=== PATIENT | female | born 1940 | race Caucasian/White ===

== ENCOUNTER → 2017-07-11 13:53 | Outpatient (CLI) | payer MEDICARE, OTHER, SELFPAY ==
[2017-07-11 15:38] LABS: Absolute Neutrophil Count 3.9 X10^3/uL (2.0-7.7); Basophil# 0.03 X10^3/uL; Basophil% 0.5 % (0-1); Eosinophil# 0.11 X10^3/uL; Eosinophils% 1.8 % (0-5); Hematocrit 42.6 % (37-47); Hemoglobin 13.5 g/dl (12.0-15.0); Lymphocyte % 26.2 % (19-41); Mean Corp Hgb Conc 31.7 g/gl (32-36); Mean Corpuscular Hgb 29.4 pg (27.0-32.0); Mean Corpuscular Volume 92.8 fL (81-99); Mean Platelet Vol. 9.1 fl (6.2-12.0); Monocyte# 0.47 X10^3/uL; Monocyte% 7.7 % (0-10); Neutrophil # 3.89 X10^3/uL (2.7-7.7); Neutrophil % 63.8 % (47-70); Platelet Count 297 K/mm3 (150-450); RBC Distribution Width CV 13.4 % (11.6-14.6); RBC Distribution Width SD 45.4 fl (35.1-43.9); Red Blood Count 4.59 M/mm3 (4.2-5.4); White Blood Count 6.1 K/mm3 (4.4-11.0)
[2017-07-11 15:46] LABS: POSITIVE COUNT NO; POSITIVE DIFFERENTIAL NO; POSITIVE MORPHOLOGY NO
[2017-07-11 16:00] LABS: Erythrocyte Sedimentation Rate 7 mm/hr (0-30)
[2017-07-11 16:04] LABS: Vitamin B12 597 pg/mL (211-911); Vitamin D,25 Hydroxy 26.5 ng/mL (29.95-100.01)
[2017-07-11 16:17] LABS: ALB/GLOB Ratio 1.2 RATIO (0.9-2.4); AST(SGOT) 24 U/L (15-37); Alanine Aminotransfer ALT/SGPT 54 U/L (13-56); Albumin, Serum 3.8 g/dL (3.2-5.0); Alkaline Phosphatase 78 U/L (45-117); Anion Gap 9 (5-15); BUN 16 mg/dL (7-18); BUN/Creat Ratio 26.9 RATIO (10-20); CRP < 2.90 mg/L (0.0-3.0); Calcium,Total 8.9 mg/dL (8.5-10.1); Chloride 104 mmol/L (98-107); EST Glomerular Filtration Rate 105 mL/min (>60); Est Glom Filt Rate - Afr Amer 127 mL/min (>60); Globulin 3.3 g/dL (2.2-4.2); Glucose 75 mg/dL (74-106); Potassium 4.1 mmol/L (3.5-5.1); Protein, Total 7.1 g/dL (6.4-8.2); Rheumatoid Factor < 10.0 IU/mL (<15); Sodium Level 139 mmol/L (136-145); Thyroid Stim Hormone (TSH) 4.06 uIU/mL (0.358-3.74)
[2017-07-12 13:49] LABS: T4 Free Direct 1.03 ng/dL (0.76-1.46)
[2017-07-13 15:29] LABS: ANTINUCLEAR ANTIBODIES DIRECT Negative (Negative)
[2017-07-14 09:54] LABS: Anti-Thyroglobulin AB < 1.0 IU/mL (0.0-0.9); Thyroglobulin, Serum Qt. 45.9 ng/mL (1.5-38.5); Thyroid Peroxidase AB 8 IU/mL (0-34)
== END ==
PROVIDERS: Family Provider Family Medicine; PCP Family Medicine; Visit Provider Family Medicine
DX: R53.83 Other fatigue (principal); R94.6 Abnormal results of thyroid function studies; M25.50 Pain in unspecified joint
CPT/HCPCS: 36415; 80053; 82306; 82607; 84432; 84439; 84443; 85025; 85652; 86038; 86140; 86376; 86431; 86800

== ENCOUNTER 2017-09-28 20:00 | Emergency (ER) | payer MEDICARE, OTHER, SELFPAY ==
[2017-09-28 20:01] VITALS: BP 150/67; PULSE 98; RESP 18; TEMP 37.7; O2SAT 93; BMI 25.2
[2017-09-28 21:32] VITALS: BP 131/64; PULSE 82; RESP 16; O2SAT 96
--- NOTE | 2017-09-28 21:52 | ED.VISSUMM ---
- ER Visit Summary Date of Service: 09/28/17 Chief Complaint: Migratory pain for 9 months History of Present Illness: The patient is a 76 F who presents because of vague migratory back pain. She has had pain in her extremities as well. She apparently is anxious because her niece is coming from [place]. Daughter reports the onset of symptoms started 9 months ago when her niece visited from [place]. Furthermore, she retired 9 months ago from work. 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 She now cares for her . He is dependent on her care. She has had a significant workup which includes cardiac, GI, rheumatologic and radiologic imaging with no cause of any of her symptoms. Physical Examination: Vital signs are unremarkable. HEENT exam is unremarkable. Heart is regular without murmur, gallop or rub. S1 and S2 are normal. Lungs are clear to auscultation with good movement of air bilaterally. Abdomen is soft nontender. She is alert oriented. She is anxious. Affect is restricted. She has a nonfocal neurologic exam. Test Results: None Emergency Department Course and Treatment: Patient and daughter were informed it is my believes that she has significant workup at this has a psychological basis and there may be mild underlying depression. Daughter informed me that there was improvement when she was placed on Ativan for her anxiety. Treatment Plan: Prescription for Zoloft to be taken at bedtime and follow-up with PCP Disposition: Discharged home with appropriate home-going instructions Impression: 1. Multiple somatic complaints 2. Mild depression 3. Anxiety This note was generated with [employer] dictation software. It may contain incorrect words, spelling, and punctuation that were not noted in review of the chart prior to signing ED Disposition - Plan for ED Patient: Disposition: Home or Assisted Living Chief Complaint: Back Instructions: Depression Affects Your Mind and Body, What Can Cause Depression? Prescriptions: Sertraline HCl [Zoloft] 25 mg PO QHS #30 tab Referrals: Adrienne Cruz MD [Primary Care Provider] - 1-2 Weeks
--- NOTE | 2017-09-28 21:58 | ED.DCSUM_ITS ---
- ER Visit Summary Date of Service: 09/28/17 Chief Complaint: Migratory pain for 9 months History of Present Illness: The patient is a 76 F who presents because of vague migratory back pain. She has had pain in her extremities as well. She apparently is anxious because her niece is coming from [place]. Daughter reports the onset of symptoms started 9 months ago when her niece visited from [place]. Furthermore, she retired 9 months ago from work. 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 She now cares for her . He is dependent on her care. She has had a significant workup which includes cardiac, GI, rheumatologic and radiologic imaging with no cause of any of her symptoms. Physical Examination: Vital signs are unremarkable. HEENT exam is unremarkable. Heart is regular without murmur, gallop or rub. S1 and S2 are normal. Lungs are clear to auscultation with good movement of air bilaterally. Abdomen is soft nontender. She is alert oriented. She is anxious. Affect is restricted. She has a nonfocal neurologic exam. Test Results: None Emergency Department Course and Treatment: Patient and daughter were informed it is my believes that she has significant workup at this has a psychological basis and there may be mild underlying depression. Daughter informed me that there was improvement when she was placed on Ativan for her anxiety. Treatment Plan: Prescription for Zoloft to be taken at bedtime and follow-up with PCP Disposition: Discharged home with appropriate home-going instructions Impression: 1. Multiple somatic complaints 2. Mild depression 3. Anxiety This note was generated with [employer] dictation software. It may contain incorrect words, spelling, and punctuation that were not noted in review of the chart prior to signing ED Disposition - Plan for ED Patient: Disposition: Home or Assisted Living Chief Complaint: Back Instructions: Depression Affects Your Mind and Body, What Can Cause Depression? Prescriptions: Sertraline HCl [Zoloft] 25 mg PO QHS #30 tab Referrals: Adrienne Cruz MD [Primary Care Provider] - 1-2 Weeks
[2017-09-28] MEDS: Sertraline 50 MG Tablet 25 MG PO (22:27)
[2017-09-28 22:31] VITALS: BP 111/70; PULSE 69; RESP 16; O2SAT 95
== END 2017-09-28 22:32 | disposition home or self-care (01) ==
PROVIDERS: Emergency Provider Emergency Medicine; Family Provider Family Medicine; PCP Family Medicine
DX: F45.0 Somatization disorder (principal); F32.9 Major depressive disorder, single episode, unspecified; F41.9 Anxiety disorder, unspecified; E78.00 Pure hypercholesterolemia, unspecified; Z79.82 Long term (current) use of aspirin; Z79.899 Other long term (current) drug therapy
CPT/HCPCS: 99283

== ENCOUNTER → 2018-03-20 10:34 | Outpatient (CLI) | payer MEDICARE, OTHER, SELFPAY ==
[2018-03-20 12:39] LABS: Vitamin D,25 Hydroxy 37.6 ng/mL (29.95-100.01)
[2018-03-20 13:03] LABS: AST(SGOT) 30 U/L (15-37); Alanine Aminotransfer ALT/SGPT 50 U/L (13-56); Cholesterol 231 mg/dL (200); High Density Lipoprotein 62 mg/dL; Thyroid Stim Hormone (TSH) 2.91 uIU/mL (0.358-3.74); Triglycerides 110 mg/dL; Very Low Density Lipoprotein 22 mg/dL (5-40)
== END ==
PROVIDERS: Family Provider Family Medicine; PCP Family Medicine; Visit Provider Family Medicine
DX: E78.5 Hyperlipidemia, unspecified (principal); E55.9 Vitamin D deficiency, unspecified; R94.6 Abnormal results of thyroid function studies
CPT/HCPCS: 36415; 80061; 82306; 84443; 84450; 84460

== ENCOUNTER → 2019-04-23 10:57 | Outpatient (CLI) | payer MEDICARE, OTHER, SELFPAY ==
[2019-04-23 13:24] LABS: Vitamin D,25 Hydroxy 29.9 ng/mL (29.95-100.01)
[2019-04-23 13:35] LABS: AST(SGOT) 15 U/L (15-37); Alanine Aminotransfer ALT/SGPT 26 U/L (13-56); Cholesterol 145 mg/dL (200); High Density Lipoprotein 49 mg/dL; Thyroid Stim Hormone (TSH) 2.67 uIU/mL (0.358-3.74); Triglycerides 124 mg/dL; Very Low Density Lipoprotein 25 mg/dL (5-40)
== END ==
PROVIDERS: Family Provider Family Medicine; PCP Family Medicine; Referring Provider Family Medicine; Visit Provider Family Medicine
DX: E78.5 Hyperlipidemia, unspecified (principal); E55.9 Vitamin D deficiency, unspecified; R94.6 Abnormal results of thyroid function studies
CPT/HCPCS: 36415; 80061; 82306; 84443; 84450; 84460

== ENCOUNTER 2019-08-08 22:19 | Emergency (ER) | payer MEDICARE, OTHER, SELFPAY ==
[2019-08-08 22:21] VITALS: BP 144/94; PULSE 66; RESP 16; TEMP 36.9; O2SAT 94; BMI 26.2
--- NOTE | 2019-08-08 22:23 | ED.RN ---
[facility] [phone] (SON) OVIDIO [phone] ([facility])
[2019-08-08 22:48] VITALS: BP 123/77; PULSE 64; RESP 14; O2SAT 95
--- NOTE | 2019-08-08 23:05 | CT_ITS ---
STUDY: CT BRAIN WITHOUT CONTRAST REASON FOR EXAM: Female, 78 years old. Sudden onset dizziness tonight. History of breast cancer with mastectomy. RADIATION DOSAGE (If Supplied By Facility): CTDIvol = ( 44.99 ) mGy, DLP = ( 796.11 ) mGycm TECHNIQUE: Transaxial CT imaging of the brain was performed without administration of intravenous contrast material. Individualized dose optimization techniques were used for this CT. COMPARISON: No relevant priors. FINDINGS: Normal soft tissue structures. Normal calvarium. Normal size ventricles and extra-axial spaces for the patient''s age. Normal white matter tracts of the cerebral hemispheres. Normal basal ganglia and thalami. Normal brainstem. Normal cerebellum. There is no intracranial hemorrhage. There are no findings of an acute ischemic infarction. Normal visualized paranasal sinuses. CT/Brain/Head without Contrast IMPRESSION: Normal unenhanced CT scan of the brain. Electronically Signed: Bret Baxter DO at 23:38 EDT Tel [phone], Service support ,
--- NOTE | 2019-08-08 23:06 | EKG12_ITS ---
Test Reason : DIZZINESSS Blood Pressure : / mmHG Vent. Rate : 065 BPM Atrial Rate : 065 BPM P-R Int : 170 ms QRS Dur : 088 ms QT Int : 450 ms P-R-T Axes : 029 032 028 degrees QTc Int : 468 ms Normal sinus rhythm Nonspecific ST and T wave abnormality Abnormal ECG Confirmed by SURYA RUGGIERO, EDINSON ([id number]), editor farm journal NORMA BLANC ([id number]) on 08/13/2019 2:18:43 PM Referred By: DEVANG Confirmed By:EDINSON LONDON MD
--- NOTE | 2019-08-08 23:07 | ED.VIS.GEN ---
History of Present Illness Chief Complaint: Dizziness Informant: Patient Narrative: Stated approximately an hour and a half ago she was at home and she had the sudden onset of vertigo. She felt like she was rolling and doing somersaults. She is never had this before. She got nauseous and vomited twice. Currently she feels significantly better. That she had a normal day otherwise. Currently when she moves her head it does not exacerbate her symptoms. She has very slight motion sickness currently. She did not feel lightheaded like she was going to pass out. No home treatment. Family urged her to come in to get checked out. No history of stroke. Worsened by nothing. Relieved with time. Denies any focal weakness numbness or tingling or strokelike symptoms - Past Medical History (1) Breast cancer Status: Chronic (2) Hyperlipidemia Status: Chronic Past Medical History - Allergies and Home Meds Allergies/Adverse Reactions: Allergies No Known Allergies Allergy (Verified 08/08/19 22:21) Primary Care Physician: Adrienne Cruz MD [Primary Care Provider] - Prior records reviewed: Yes Past Medical History: - - See problem list Surgical History: - - Left breast partial mastectomy and lymph node dissection. Smoking Status: Never smoker Alcohol: None Drugs: None - Family History Maternal Family History: Reports: Cancer - There with a history of breast cancer. Paternal Family History: Reports: - - Other with history of Parkinson's disease in addition to heart disease. Sibling Family History: Reports: - - Patient with a sister with colon cancer and a sister with breast cancer. Review of Systems General: Denies: Chills, Fever, Sweats Eyes: Denies: Visual changes - bilaterally, Diplopia ENT: Denies: Rhinorrhea, Sore throat Cardiovascular: Denies: Chest pain, Palpitations Respiratory: Denies: Dyspnea, Cough, Dyspnea on exertion Gastrointestinal: Reports: Nausea. Denies: Abdominal pain, Vomiting, Diarrhea, Melena, Hematochezia Genitourinary: Denies: Dysuria, Hematuria, Frequency Musculoskeletal: Denies: Back pain, Extremity Pain Skin: Denies: Rash, Wounds Neurological: Reports: - - See HPI. Denies: Headache, Weakness, Parasthesia, Numbness Physical Exam Vital Signs/Narrative: Vital Signs Temp Pulse Resp BP Pulse Ox 08/08/19 22:48 64 14 123/77 H 95 08/08/19 22:21 98.5 F 66 16 144/94 H 94 General: Well nourished, Well developed, No Acute Distress Head: Normocephalic, Atraumatic Eyes: Perrl, EOMI ENT: Moist mucous membranes, No rhinorrhea Neck: Supple, Nontender Cardiovascular: Regular rate, Regular rhythm, No murmurs Respiratory: No distress, CTA bilaterally, Chest nontender Abdomen: Soft, Nontender, Nondistended, Normal bowel sounds Back: Nontender, Normal Inspection Extremities: Nontender, No edema Skin: Normal color, No rash Neurological: Alert, Oriented x3, Cranial nerves II-XII grossly intact, Normal Strength, Normal Sensation, Normal DTR, - - Mild lateral nystagmus to the left. No focal neurologic deficits. NIH stroke scale 0. Negative [place]. Negative for: Confused, Disoriented, Inattentive, Hyperalert, Lethargic, Stupor, Coma, Parasthesia, Weakness, Left side facial droop, Right side facial droop Psychological: Normal affect, Normal Mood Diagnostic/Tx/Re-eval - Medical Decision Making Patient given IV fluids meclizine and Zofran. Lab work and CT and an EKG obtained. EKG shows sinus rhythm at a rate of 65 with no acute ischemia or arrhythmia. Lab work unremarkable occluding CBC BMP. CT head normal. Patient feels completely asymptomatic on reevaluation I suspect she has peripheral vertigo. I do not think she has a central cause of vertigo. It came on suddenly with nausea and vomiting with lateral nystagmus. She is asymptomatic after treatment. She ambulated without difficulty. No ataxia. I feel she can follow-up as an outpatient and will be given Zofran and meclizine for home ED Disposition - Plan for ED Patient: Disposition: Home or Assisted Living Diagnosis: Peripheral vertigo Instructions: ED BPV Vertigo Prescriptions: Meclizine HCl 25 mg PO TID PRN PRN #20 tab PRN Reason: Vertigo Prescription Printed Ondansetron [Zofran Odt] 4 mg PO Q8H PRN PRN #10 tab PRN Reason: Nausea Prescription Printed Referrals: Adrienne Cruz MD [Primary Care Provider] -
[2019-08-08 23:12] LABS: Absolute Lymphocyte Count 3.03 X10^3/uL (0.83-4.51); Absolute Neutrophil Count 4.1 X10^3/uL (2.0-7.7); Basophil# 0.08 X10^3/uL; Eosinophil# 0.26 X10^3/uL; Eosinophils% 3.1 % (0-5); Hematocrit 41.5 % (37-47); Hemoglobin 13.3 g/dL (12.0-15.0); Lymphocyte # 3.03 X10^3/ul (4.0); Lymphocyte % 36.6 % (19-41); Mean Corpuscular Hgb 29.6 pg (27.0-32.0); Mean Corpuscular Volume 92.4 fL (81-99); Mean Platelet Vol. 9.4 fl (6.2-12.0); Monocyte# 0.78 X10^3/uL; Monocyte% 9.4 % (0-10); NRBC Flagged by Analyzer 0 % (0-5); Neutrophil # 4.07 X10^3/uL (2.7-7.7); Neutrophil % 49.3 % (47-70); Platelet Count 290 K/mm3 (150-450); RBC Distribution Width SD 41.4 fl (35.1-43.9); Red Blood Count 4.49 M/mm3 (4.2-5.4); White Blood Count 8.3 K/mm3 (4.4-11.0)
[2019-08-08] MEDS: Ondansetron 4 MG/2 ML Vial IV (23:14)
[2019-08-08] MEDS: Meclizine HCl 25 MG Tablet PO (23:15)
[2019-08-08 23:23] LABS: Anion Gap 6 (5-15); BUN 11 mg/dL (7-18); BUN/Creat Ratio 17.1 RATIO (10-20); Calcium,Total 9.1 mg/dL (8.5-10.1); Chloride 104 mmol/L (98-107); Creatinine, Serum 0.64 mg/dL (0.55-1.02); EST Glomerular Filtration Rate 95 mL/min (>60); Est Glom Filt Rate - Afr Amer 115 mL/min (>60); Estimated Creatinine Clearance 39.59 ml/min; Glucose 120 mg/dL (74-106); Potassium 3.7 mmol/L (3.5-5.1); Sodium Level 139 mmol/L (136-145)
[2019-08-09 00:42] VITALS: BP 133/79; PULSE 67; RESP 16; O2SAT 96
== END 2019-08-09 00:43 | disposition home or self-care (01) ==
PROVIDERS: Emergency Provider Emergency Medicine; PCP Family Medicine
DX: H81.399 Other peripheral vertigo, unspecified ear (principal); E78.5 Hyperlipidemia, unspecified
CPT/HCPCS: 70450; 80048; 85025; 93005; 96361; 96374; 99285; J7040; A4216; J2405

== ENCOUNTER → 2020-03-24 14:47 | Outpatient (CLI) | payer MEDICARE, OTHER, SELFPAY ==
[2020-03-24 18:23] LABS: AST(SGOT) 21 U/L (15-37); Alanine Aminotransfer ALT/SGPT 24 U/L (13-56); Cholesterol 154 mg/dL (200); High Density Lipoprotein 56 mg/dL; Triglycerides 92 mg/dL; Very Low Density Lipoprotein 18 mg/dL (5-40)
[2020-03-24 19:01] LABS: Vitamin D,25 Hydroxy 34.3 ng/mL
== END ==
PROVIDERS: PCP Family Medicine; Visit Provider Family Medicine
DX: E78.5 Hyperlipidemia, unspecified (principal); E55.9 Vitamin D deficiency, unspecified
CPT/HCPCS: 36415; 80061; 82306; 84450; 84460

== ENCOUNTER → 2020-04-21 13:53 | Outpatient (CLI) | payer MEDICARE, OTHER, SELFPAY ==
--- NOTE | 2020-04-21 13:55 | BI_ITS ---
MAMMOGRAPHY - BILATERAL SCREENING REASON FOR EXAM: Female, 79 years old. Routine annual screening examination. PERTINENT HISTORY: Personal history of breast cancer. History of prior left lumpectomy and radiation treatment. Sister with breast cancer. Mother with breast cancer. Chronic inversion of the right nipple complex. TECHNIQUE: Digital bilateral breast gerri (3D mammographic acquisition) in the CC and MLO projections. 2-D mediolateral oblique (MLO) and craniocaudad (CC) views of both breasts were obtained. CAD: Full Field Digital Mammography with Computer Added Detection was performed. COMPARISON: Comparison is made with prior outside examination dated 08/08/2017. FINDINGS: Breast Composition: There are scattered areas of fibroglandular density. There are no dominant masses or suspicious calcifications. Stable deformity of the left breast with architectural distortion in the deep upper lateral portion of the left breast in keeping with prior lumpectomy. Surgical clips are seen in the left axillary region. No other significant abnormalities are identified. There has been no significant change since the prior study. BI/SCREEN MAMM (CAD) W/GERRI BILAT IMPRESSION: Stable bilateral screening mammogram. Yearly follow-up mammogram recommended. (A) ASSESSMENT CATEGORY: BIRADS Category 2: Benign. A letter regarding these results will be sent to the patient by the facility within 30 days. Approximately 10% of breast cancers are not detected by mammography. A normal mammogram should not delay biopsy of a clinically suspicious abnormality. [id number] Electronically Signed: Narendra Ward, at 14:38 EST , Service support ,
== END ==
PROVIDERS: PCP Family Medicine; Referring Provider Family Medicine; Visit Provider Family Medicine
DX: Z12.31 Encounter for screening mammogram for malignant neoplasm of breast (principal); Z85.3 Personal history of malignant neoplasm of breast; Z80.3 Family history of malignant neoplasm of breast
CPT/HCPCS: 77063; 77067

== ENCOUNTER 2020-09-03 19:06 | Emergency (ER) | payer MEDICARE, OTHER, SELFPAY ==
[2020-09-03 19:07] VITALS: BP 143/72; PULSE 70; RESP 15; TEMP 36; O2SAT 98; BMI 24.4
--- NOTE | 2020-09-03 19:23 | EDS_ITS ---
HPI History of Present Illness Chief Complaint: Other, Pain/Inj Informant: patient and family Onset/Context/Timing Onset: Today Context: Sudden Onset Timing: Continuous Quality: Choking Location: Throat Worsened by: Taking pills Relieved by: Nothing Narrative Narrative: Patient presents with a choking episode that occurred today. Patient states she was trying to take her pills when she felt like she was choking. Patient was able to cough up something. Patient states she has been able to swallow fluids. Patient states she has not been able to eat solid food. Patient denies any fevers or chills. Patient denies any chest pain or shortness of breath. Patient denies any nausea or vomiting. [facility] Medical History (Updated 09/03/20 @ 19:[address] Mau Roth DO) Hypercholesteremia Home Medications rosuvastatin 10 mg PO QHS 02/17/17 [History Last Taken 02/16/17] paroxetine HCl 20 mg PO DAILY 09/28/17 [History Last Taken Unknown] meclizine 25 mg PO TID PRN PRN #20 tab 08/09/19 [Rx Last Taken Unknown] ondansetron 4 mg PO Q8H PRN PRN #10 tab 08/09/19 [Rx Last Taken Unknown] Allergy/AdvReac Type Severity Reaction Status Date / Time No Known Allergies Allergy Verified 08/08/19 22:21 Surgical History History of lumpectomy of left breast Social History Smoking Status: Never smoker ROS [facility] ED Constitutional Constitutional ED: Denies chills or fever(s) Eyes Eyes: Denies blurry vision or change in vision ENT ENT ED: Denies rhinorrhea or sore throat Cardiovascular Cardiovascular: Denies chest pain or palpitations Respiratory/Chest Respiratory/Chest: Denies cough or dyspnea Gastrointestinal Gastrointestinal: Denies nausea or vomiting Genitourinary Genitourinary ED: Denies dysuria or hematuria Musculoskeletal Musculoskeletal: Reports neck pain; Denies back pain Integumentary Denies abscess or rash Neurologic Neurologic: Denies headache(s) or weakness Allergic/Immunologic Allergic/Immunologic ED: Denies mouth swelling or urticaria EXAM Physical Exam Const Vital Signs: 09/03/20 19:07 Temperature 96.8 F L Temperature Source Temporal Pulse Rate 70 Respiratory Rate 15 Blood Pressure 143/72 H Blood Pressure Mean 95 Pulse Ox 98 Oxygen Delivery Method Room Air Positive well nourished and well developed General Appearance ED: well developed HEENT Reports moist mucous membranes HEENT Narrative: Oral mucosa is pink and moist. Oropharynx is clear. Airway is patent. Neck supple and no JVD Resp normal respiratory effort and clear to auscultation bilaterally Cardio regular rate and regular rhythm GI normal to inspection, nondistended, normoactive bowel sounds and non-tender Palpation: soft Neuro oriented x3, CN's II-XII intact bilaterally and no sensory deficits noted Sensorium / Orientation: alert Motor Exam: strength 5/5 throughout Psych mental status grossly normal MDM MDM MDM Narrative Medical decision making narrative: Patient was given a GI cocktail here. Patient feels better on reevaluation. Patient states she is able to swallow better. Patient was instructed to follow-up with her primary care physician in 3 to 5 days. Patient and family understood and were agreeable with the plan. All questions were answered. Discharge Plan Triage Chief Complaint: Other, Pain/Inj ED Provider: Mau Roth Dx/Rx/DC Orders Clinical Impression: Dysphagia Instructions: ED Soft Diet, ED Dysphagia (Adult) Prescriptions: No Action rosuvastatin 10 MG tablet 10 mg PO QHS RF: 0 paroxetine HCl 20 MG tablet 20 mg PO DAILY RF: 0 ondansetron 4 MG tablet 4 mg PO Q8H PRN PRN (Reason: Nausea) Qty: 10 RF: 0 meclizine 25 MG tablet 25 mg PO TID PRN PRN (Reason: Vertigo) Qty: 20 RF: 0 Primary Care Provider: Adrienne Cruz Referrals: Adrienne Cruz MD [Primary Care Provider] - 3-5 Days Disposition Disposition: Home, self care
[2020-09-03] MEDS: Mag Hydrox/Al Hydrox/Simeth 30 ML UDC PO (19:33)
== END 2020-09-03 20:07 | disposition home or self-care (01) ==
PROVIDERS: Emergency Provider Emergency Medicine; PCP Family Medicine
DX: R13.10 Dysphagia, unspecified (principal); E78.00 Pure hypercholesterolemia, unspecified; Z79.899 Other long term (current) drug therapy
CPT/HCPCS: 99283

== ENCOUNTER → 2020-12-04 13:03 | Outpatient (CLI) | payer MEDICARE, OTHER, SELFPAY ==
--- NOTE | 2020-12-04 13:08 | US_ITS ---
STUDY: ULTRASOUND OF THE FEMALE PELVIS - COMPLETE REASON FOR EXAM: Female, 80 years old. BLEEDING LMP: Patient is postmenopausal. TECHNIQUE: Transabdominal and Transvaginal TECHNICAL QUALITY: Adequate. COMPARISON: None. FINDINGS: The uterus is anteverted and is in a midline position. The uterus measures 7.1 cm x 4.8 cm x 3.1 cm. Normal uterine cervix. The endometrium measures 2 mm in thickness, and is fluid distended. There is no demonstrated endometrial mass. Numerous tiny myometrial calcifications are seen most likely representing fibrotic change. I.U.D. - The patient does not have an I.U.D. The right ovary is non-visualized. The left ovary is non-visualized. There is no fluid in the cul-de-sac. The pre void volume of the bladder was 273 ml. US/Pelvic (Non ) IMPRESSION: Fluid-filled endometrium measuring 2 mm. Numerous small calcifications are seen within the myometrium suggestive of fibroid change. Electronically Signed: Narendra Ward MD at 15:23 EDT , Service support ,
--- NOTE | 2020-12-04 13:08 | US_ITS ---
STUDY: ULTRASOUND OF THE FEMALE PELVIS - COMPLETE REASON FOR EXAM: Female, 80 years old. BLEEDING LMP: Patient is postmenopausal. TECHNIQUE: Transabdominal and Transvaginal TECHNICAL QUALITY: Adequate. COMPARISON: None. FINDINGS: The uterus is anteverted and is in a midline position. The uterus measures 7.1 cm x 4.8 cm x 3.1 cm. Normal uterine cervix. The endometrium measures 2 mm in thickness, and is fluid distended. There is no demonstrated endometrial mass. Numerous tiny myometrial calcifications are seen most likely representing fibrotic change. I.U.D. - The patient does not have an I.U.D. The right ovary is non-visualized. The left ovary is non-visualized. There is no fluid in the cul-de-sac. The pre void volume of the bladder was 273 ml. US/Transvaginal Non- IMPRESSION: Fluid-filled endometrium measuring 2 mm. Numerous small calcifications are seen within the myometrium suggestive of fibroid change. Electronically Signed: Narendra Ward MD at 15:23 EDT , Service support ,
== END ==
PROVIDERS: PCP Family Medicine; Referring Provider Urology; Visit Provider Urology
DX: N93.9 Abnormal uterine and vaginal bleeding, unspecified (principal)
CPT/HCPCS: 76830; 76856

== ENCOUNTER → 2021-01-15 | Outpatient (CLI) | payer MEDICARE, OTHER, SELFPAY ==
--- NOTE | 2021-01-15 | EMB_PTH ---
PATIENT: MIKAEL SON LOC: [facility] U#:[id number] AGE/SX: 80/F ROOM: RE01/15/[address]: PEYMAN Lord : [id number] BED: DIS: 01/15/2021 SPEC #: [id number] RECD: 01/15/21 10:19 STATUS: TEA REJaimie #: [id number] RADHA: 01/15/21 00:[address]: Rhonda Ochoa NP DEPT: SURGICAL PATHOLOGY RECD BY: Lucille Moon ENTERED: 01/15/21 13:51 SP TYPE: ENDOM BX/C MALINA DR: Dr. Adrienne Cruz MD Tissues: Endometrium, NOS Procedures: Surgery Specimen Level IV HEADER OPERATION: Endometrial biopsy PRE-OP DIAGNOSIS: PMB TISSUE SUBMITTED: Endometrial biopsy MICROSCOPIC DIAGNOSIS Endometrium, biopsy: Inactive endometrium. Polypoid fragments of endocervix with chronic and focal acute inflammation. AM:darvin 01/16/2021 MICROSCOPIC DESCRIPTION Slides are reviewed. GROSS DESCRIPTION Received is one container labeled with the patient's name and not further designated. The specimen consists of multiple irregular fragments of mcclendon-pink mucoid tissue that in aggregate measure 2.5 x 1 x 0.1 cm. The specimen is totally submitted in one cassette. / SJ:darvin 01/15/21 TC:5 CPT: 20026
== END | disposition home or self-care (01) ==
LOC: LABSPEC 12:47
PROVIDERS: PCP Family Medicine; Visit Provider Nurse Practitioner Women's Health
DX: N95.0 Postmenopausal bleeding (principal)
CPT/HCPCS: 88305

== ENCOUNTER → 2021-03-16 11:38 | Outpatient (CLI) | payer MEDICARE, OTHER, SELFPAY ==
[2021-03-16 15:06] LABS: Absolute Lymphocyte Count 1.74 X10^3/uL (0.83-4.51); Absolute Neutrophil Count 6.7 X10^3/uL (2.0-7.7); Basophil# 0.05 X10^3/uL; Basophil% 0.5 % (0-1); Eosinophil# 0.11 X10^3/uL; Eosinophils% 1.1 % (0-5); Hematocrit 40.8 % (37-47); Hemoglobin 12.7 g/dL (12.0-15.0); Lymphocyte # 1.74 X10^3/ul (0.83-4.51); Lymphocyte % 17.7 % (19-41); Mean Corp Hgb Conc 31.1 g/dL (32-36); Mean Corpuscular Hgb 29.2 pg (27.0-32.0); Mean Corpuscular Volume 93.8 fL (81-99); Mean Platelet Vol. 8.7 fl (6.2-12.0); Monocyte# 1.18 X10^3/uL; NRBC Flagged by Analyzer 0 % (0-5); Neutrophil # 6.69 X10^3/uL (2.7-7.7); Neutrophil % 68.2 % (47-70); Platelet Count 386 K/mm3 (150-450); RBC Distribution Width CV 12.5 % (11.6-14.6); RBC Distribution Width SD 43.6 fl (35.1-43.9); Red Blood Count 4.35 M/mm3 (4.2-5.4); White Blood Count 9.8 K/mm3 (4.4-11.0)
[2021-03-16 15:29] LABS: ALB/GLOB Ratio 0.9 RATIO (0.9-2.4); AST(SGOT) 40 U/L (15-37); Alanine Aminotransfer ALT/SGPT 57 U/L (13-56); Alkaline Phosphatase 137 U/L (45-117); Anion Gap 10 (5-15); BUN 16 mg/dL (7-18); BUN/Creat Ratio 24.7 RATIO (10-20); Calcium,Total 8.8 mg/dL (8.5-10.1); Chloride 102 mmol/L (98-107); Creatinine, Serum 0.65 mg/dL (0.55-1.02); EST Glomerular Filtration Rate 94 mL/min (>60); Est Glom Filt Rate - Afr Amer 114 mL/min (>60); Globulin 3.5 g/dL (2.2-4.2); Glucose 60 mg/dL (74-106); Potassium 4.5 mmol/L (3.5-5.1); Protein, Total 6.5 g/dL (6.4-8.2); Sodium Level 142 mmol/L (136-145)
== END ==
PROVIDERS: PCP Family Medicine; Referring Provider Family Medicine; Visit Provider Family Medicine
DX: Z01.818 Encounter for other preprocedural examination (principal)
CPT/HCPCS: 36415; 80053; 85025

== ENCOUNTER 2021-05-06 19:06 | Emergency (ER) | payer MEDICARE, OTHER, SELFPAY ==
[2021-05-06 19:07] VITALS: BP 145/103; PULSE 73; RESP 18; TEMP 35.7; O2SAT 94; BMI 29.7
[2021-05-06 19:16] VITALS: BP 139/75; PULSE 72; RESP 14; O2SAT 96
--- NOTE | 2021-05-06 19:31 | ED.VIS.FALL ---
HPI HPI - Fall History of Present Illness Chief Complaint: Fall Informant: patient and family Occured/Mechanism Occurred: Today Usually ambulates: Without assistance Pain/Injury Pain Location: none Associated Symptoms Associated Symptoms: Negative for Parasthesias, Weakness, Loss of function, Inability to ambulate, Loss of consciousness and Amnesia Narrative Narrative: 72-year-old female history of prior breast cancer, dementia and prior DVT. She is on no blood thinners. She lives alone at home. Daughter works here in [employer]. Patient fell at home. Called her daughter. Squad was called she was brought in backboard and c-collar. She denies any complaints. It was an unwitnessed fall. No recent illness. No recent hospitalization. Patient denies vomiting or diarrhea. She denies fever. She denies headache or neck pain. She denies chest or abdominal pain. No back pain. Prior similar symptoms: Yes Recent Illness/Hospitalization: No PFSH PFSH Medical History Cancer Dementia DVT (deep venous thrombosis) High cholesterol History of basal cell cancer History of stress test Hypercholesteremia Non-smoker Post-menopausal Skin cancer Wears dentures Wears glasses Home Medications rosuvastatin 10 mg PO QHS 02/17/17 [History Last Taken 02/16/17] donepezil 10 mg tablet 10 mg PO DAILY 01/15/21 [History Last Taken Unknown] paroxetine HCl 10 mg tablet 10 mg PO DAILY 01/15/21 [History Last Taken Unknown] quetiapine 25 mg tablet 25 mg PO DAILY 01/15/21 [History Last Taken Unknown] Allergy/AdvReac Type Severity Reaction Status Date / Time valacyclovir [From Valtrex] Allergy Intermediate Rash Verified 05/06/21 19:12 Family History Other Bladder cancer Brain cancer Breast cancer Colon cancer Heart disease Myocardial infarction Parkinsons Surgical History History of lumpectomy of left breast Hx of vein stripping Social History household members: none current occupational status: retired Smoking Status: Never smoker alcohol intake: never substance use type: does not use what type of physical activity do you participate in: walking frequency: 3-4 times per week seatbelt use: always do you feel safe at home: Yes additional social history: ROS ROS ED ROS Narrative Denies recent illness. Review of Systems ROS Unobtainable: Denies due to encephalopathy Constitutional Constitutional ED: Denies fever(s) Eyes Eyes: Denies change in vision ENT ENT ED: Denies ear pain Cardiovascular Cardiovascular: Denies chest pain Respiratory/Chest Respiratory/Chest: Denies dyspnea Gastrointestinal Gastrointestinal: Denies abdominal pain, diarrhea, nausea or vomiting Genitourinary Genitourinary ED: Denies dysuria Musculoskeletal Musculoskeletal: Denies myalgias Integumentary Denies rash Neurologic Neurologic: Denies headache(s) Psychiatric Psychiatric: Denies depression Endocrine Endocrinology: Denies polyuria Hematologic/Lymphatic Hematologic/Lymphatic: Denies easy bruising Allergic/Immunologic Allergic/Immunologic ED: Denies urticaria EXAM Physical Exam Narrative Exam Narrative: 72-year-old female no acute distress. Vital signs stable afebrile. Does not look septic or toxic. Pulse ox 94% on room air no hypoxia. HEENT exam pupils round reactive light. No trauma to her face or scalp. Nontender no hematoma. C-spine nontender. Trachea midline. Lungs Lear to auscultation bilaterally. Heart regular rate and rhythm rate about 70 no murmur. Chest wall nontender. Abdomen soft nontender. Pelvic girdle intact. Patient is moving all 4 extremities. She has normal 5 out of 5 spring assembler strength. Normal dorsi plantar flexion. She can flex and extend both knees and hips. She can raise both arms up Const Vital Signs: 05/06/21 19:07 05/06/21 19:12 05/06/21 19:16 Temperature 96.3 F L Temperature Source Temporal Pulse Rate 73 72 Respiratory Rate 18 14 Respiratory Effort Normal Non-Labored Blood Pressure 145/103 H 139/75 H Blood Pressure Mean 117 96 Pulse Ox 94 96 Oxygen Delivery Method Room Air Room Air Room Air Positive well nourished and well developed; Negative for obese, cachectic, contractures or unkempt General Appearance ED: well developed and NAD; Negative for unkempt, cachectic or contractures Nutritional Appearance: Negative for cachectic or obese HEENT Reports normocephalic atraumatic; Negative for trauma or tenderness Eyes PERRL and EOMs intact bilaterally General Eye ED: Negative for pale conjunctiva or scleral icterus Neck full ROM, no lymphadenopathy and supple General: Negative for tenderness Chest Wall inspection of chest normal and palpation of chest normal Resp normal respiratory effort, no retractions and clear to auscultation bilaterally Auscultation: Negative for rales, rhonchi or wheezes Cardio regular rate, regular rhythm, S1 normal heart sound, S2 normal heart sound and no murmurs GI non-tender, non-distended and no masses Auscultation: normoactive bowel sounds Palpation: soft; Negative for guarding Back/Spine no CVA tenderness General Back: Negative for CVA tenderness, erythema, ecchymosis, swelling or tenderness Cervical Spine: Negative for cervical spine tenderness Thoracic Spine / Upper Back: Negative for ROM limited, pain with ROM or thoracic spinal tenderness Lumbar Spine / Lower Back: straight leg raise negative bilaterally; Negative for lumbar spinal tenderness, paraspinal muscle tenderness, straight leg raise positive right or straight leg raise positive - left Extremity normal to inspection, full ROM and no joint enlargement Neuro moves all extremities and no focal motor deficits Superior Coma Scale: document GCS findings Spontaneous Obeys Commands Oriented 15 Sensorium / Orientation: alert, oriented to person, oriented to place, lethargic and stuporous; Negative for oriented to time or confused Motor Exam: strength 5/5 throughout Psych mental status grossly normal and thought process normal Appearance: Negative for unkempt Attitude: No agitated Mood & Affect: Negative for depressed, anxious or tearful Skin Lesions: no lesions and No lesion noted Rashes: no rashes and No rashes noted Trauma: Negative for abrasion, laceration or puncture MDM MDM MDM Narrative Medical decision making narrative: 80-year-old male unwitnessed fall at home. Exam is benign. No signs of head or neck trauma. Nontender chest abdomen and extremities. I reviewed her labs from 2 months ago they were unremarkable. Discussed with her daughter. She does not want a labs done at this time. She doesn't clinically need any x-rays. We will try to ambulate the patient and see how she does. Repeat patient is doing well at 8:50 PM. Daughter at bedside. Nurses ready to get the patient up she ambulated without any difficulty. lawn service worker was in talking to the daughter. Daughter is not ready for jail placement this time. lawn service worker told me that the daughter is already doing all the appropriate things at home. They will get Adult Protective Services involved also. Daughter will stay with the patient tonight. On my repeat exam she is nontender. She is moving her arms and legs. She has no change in her exam. I discussed with daughter she did not want any labs done and all things are necessary and she does not need any x-rays at this time. Discharge Plan Triage Chief Complaint: Fall ED Provider: Zachary Soto Dx/Rx/DC Orders Clinical Impression: Fall, Dementia Instructions: Preventing Falls How to ... Prescriptions: No Action quetiapine [Seroquel] 25 mg tablet 25 mg PO DAILY RF: 0 paroxetine HCl [Paxil] 10 mg tablet 10 mg PO DAILY RF: 0 donepezil [Aricept] 10 mg tablet 10 mg PO DAILY RF: 0 rosuvastatin 10 MG tablet 10 mg PO QHS RF: 0 Primary Care Provider: Adreinne Cruz Referrals: Adrienne Cruz MD [Primary Care Provider] - As Needed Activity Restrictions/Additional Instructions: Call or return if any problems. Follow-up with Adult Protective Services. Disposition Disposition: Home, Self Care
--- NOTE | 2021-05-06 20:20 | ED.RN ---
PT. DAUGHTER CONCERNED WITH SENDING PT. HOME. REQUESTED TO SPEAK TO TRAINING AND DEVELOPMENT PROJECT LEADER. MONICA AND DR. GALLARDO UPDATED.
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
[2021-05-06 21:03] VITALS: PULSE 72; O2SAT 95
--- NOTE | 2021-05-07 15:32 | CM.ED ---
ER RNCM DC F/u call: Patient with h/o Dementia, lives alone. CC: Fall and seen in ER Called HPOA dtr Moon on listed demographics, Answered and this technical document writer introduced self and role. Per Moon patient is doing much better today and Moon was able to s/w a LATHA today and getting some things done. No further issues/concerns at this time. William Hassan RNCM
== END 2021-05-06 21:03 | disposition home or self-care (01) ==
PROVIDERS: Emergency Provider Emergency Medicine; PCP Family Medicine; Visit Provider Emergency Medicine
DX: Z04.3 Encounter for examination and observation following other accident (principal); F03.90 Unspecified dementia, unspecified severity, without behavioral disturbance, psychotic disturbance, mood disturbance, and anxiety; E78.00 Pure hypercholesterolemia, unspecified; Z85.3 Personal history of malignant neoplasm of breast; Z86.718 Personal history of other venous thrombosis and embolism; W19.XXXA Unspecified fall, initial encounter; Y92.009 Unspecified place in unspecified non-institutional (private) residence as the place of occurrence of the external cause; Y93.9 Activity, unspecified; Z85.828 Personal history of other malignant neoplasm of skin; Z78.0 Asymptomatic menopausal state; Z79.899 Other long term (current) drug therapy
CPT/HCPCS: 99284

== ENCOUNTER 2021-05-12 08:47 | Day surgery (SDC) | payer MEDICARE, OTHER, SELFPAY ==
--- NOTE | 2021-05-12 | IMM_PTH ---
PATIENT: MIKAEL SON [place] [facility] [id number] AGE/SX: 80/F ROOM: RE05/12/[address]: Dr. Danielle Calixto MD : 1940 BED: DIS: 05/12/2021 SPEC #: [id number] RECD: 05/13/21 12:16 STATUS: TEA REJaimie #: [id number] RADHA: 05/12/21 00:[address]: Danielle Calixto DEPT: IMMUNOHISTOCHEMISTRY RECD BY: Dorys Neri ENTERED: 05/13/21 12:18 SP TYPE: IMMUNO OTHR DR: Dr. Adrienne Cruz MD Tissues: Urinary bladder, NOS Procedures: CD34 (add) CK20 (add) CK7 (add) JORDAN (add) MACRO (add) MPO (add) P53 (add) Vimentin (add) Pankeratin (initial) CD44 (add) S-100 (add) [facility]YSIC[facility] [address] [address] SPECIMEN INFORMATION: Tissue Source: Bladder Clinical Info: Bladder neoplasia Specimen Number: [id number] CPT code: 88029, 62755 x10 METHODOLOGY: Deparaffinized sections of prefer/formalin-fixed tissue or PAP/DQ stained slides are incubated with monoclonal/polyclonal antibodies/oligonucleotide probes. Localization is made via biotin free immunoperoxidase method. Appropriate controls are performed and reacted as expected. Results on target cell population are indicated in the following table: RESULTS: ANTIBODY / CLONE RESULT AE1-3 (AE1/AE3/PCK26) negative CK7 (OV-TL12/30) negative CK20 (KS20.8) negative MPO (polyclonal) negative Vimentin (V9) positive CD34 (QBEnd-10) negative Macro (HAM-56) positive S-100 (4C4.9) negative anti-CD44 (SP37) positive JORDAN (E29) negative, focal dim positive P53 (DO-7) negative These tests were developed and their performance characteristics determined by [facility]. They may not have been cleared or approved by the U.S. Food and Drug Administration. The FDA has determined that such clearance or approval is not necessary. The above immunohistochemical/dualISH markers are ordered and reviewed by the Pathologist. INTERPRETATION: Bladder, biopsy: Submucosal histiocytosis. See comment. ALYSSA:darvin 05/21/2021 The specimen is sent to [facility] for expert opinion, reviewed by Dr. Corwley and the above diagnosis is rendered. The complete report is viewable in the patient's EMR. Case has been reviewed in consultation with Dr. Corrigan who concurs with the above diagnosis. IDC:FAUSTINO
--- NOTE | 2021-05-12 | BLB_PTH ---
PATIENT: MIKAEL SON [place] [facility] [place][id number] AGE/SX: 80/F ROOM: RE05/12/[address]: Dr. Danielle Calixto MD : 1940 BED: DIS: 05/12/2021 SPEC #: [id number] RECD: 05/12/21 13:11 STATUS: TEA REJaimie #: [id number] RADHA: 05/12/21 00:[address]: Danielle Calixto DEPT: SURGICAL PATHOLOGY RECD BY: Carmine George ENTERED: 05/12/21 13:11 SP TYPE: TURB OTHR DR: Dr. Adrienne Cruz MD Tissues: Urinary bladder, NOS Procedures: Special Stain Group I Surgery Specimen Level V AFB Stain (control) GMS Stain (control) Comments: The H&E stained slides and special stained slides are reviewed by Dr. Corrigan. HEADER OPERATION: Cystoscopy, bladder biopsy, fulguration PRE-OP DIAGNOSIS: Bladder neoplasia TISSUE SUBMITTED: Bladder biopsies MICROSCOPIC DIAGNOSIS Bladder, biopsy: Submucosal histiocytosis. Special stains for fungal and acid-fast bacilli are negative. See comment. ALYSSA:darvin 05/21/2021 COMMENT The specimen is sent to [facility] for expert opinion, reviewed by Dr. Crowley and the above diagnosis is rendered. Immunohistochemistry ([id number]) and additional immunohistochemical stains performed at [facility] including special stain for acid-fast bacilli and fungi supports the above diagnosis. The complete report is viewable in the patient's EMR. Case has been reviewed in consultation with Dr. Corrigan who concurs with the above diagnosis. IDC:FAUSTINO MICROSCOPIC DESCRIPTION Slides are reviewed. GROSS DESCRIPTION Received in fixative is one container labeled with the patient's name and designated bladder biopsy. The specimen consists of multiple irregular fragments of mcclendon tissue that in aggregate measure 1 x 0.5 x 0.1 cm. The specimen is totally submitted in one cassette. / AM:darvin 05/12/2021 TC:5 CPT: 50439, 72115 x2
[2021-05-12] MEDS: Cefazolin 2 GM in 0.9% Normal Saline 100 ML IV (01:43)
--- NOTE | 2021-05-12 08:19 | PCM.HP.STD ---
HPI - General HPI Narrative MIKAEL SON, is a 80 F who presents for bladder biopsy of lesion found on office cystoscopy during evaluation and preparation for pelvic organ reconstruction. [facility] Medical History (Updated 05/12/21 @ 08:[address] Danielle Calixto MD) Bladder neoplasm of uncertain malignant potential Cancer Dementia DVT (deep venous thrombosis) High cholesterol History of basal cell cancer History of stress test Hypercholesteremia Non-smoker Post-menopausal Skin cancer Wears dentures Wears glasses Home Medications rosuvastatin 10 mg PO QHS 02/17/17 [History Last Taken 02/16/17] donepezil 10 mg tablet 10 mg PO DAILY 01/15/21 [History Last Taken Unknown] paroxetine HCl 10 mg tablet 10 mg PO DAILY 01/15/21 [History Last Taken Unknown] quetiapine 25 mg tablet 25 mg PO DAILY 01/15/21 [History Last Taken Unknown] Allergy/AdvReac Type Severity Reaction Status Date / Time valacyclovir [From Valtrex] Allergy Intermediate Rash Verified 05/06/21 19:12 Family History Other Bladder cancer Brain cancer Breast cancer Colon cancer Heart disease Myocardial infarction Parkinsons Surgical History History of lumpectomy of left breast Hx of vein stripping Social History household members: none current occupational status: retired Smoking Status: Never smoker alcohol intake: never substance use type: does not use what type of physical activity do you participate in: walking frequency: 3-4 times per week seatbelt use: always do you feel safe at home: Yes additional social history: ROS Constitutional Constitutional: Denies body ache(s), chills, fatigue or fever(s) Eyes Eyes: Reports systems reviewed and no addt'l complaints, except as documented ENT HEENT: Reports systems reviewed and no addt'l complaints, except as documented Cardiovascular Cardiovascular: Reports systems reviewed and no addt'l complaints, except as documented; Denies abdominal pain, chest pain, dyspnea or racing heartbeat Respiratory/Chest Respiratory/Chest: Denies chest congestion, chest tightness, cough or dyspnea Gastrointestinal Gastrointestinal: Denies abdominal pain, change in stool character, nausea or vomiting Genitourinary Genitourinary: Reports urinary frequency and urinary incontinence; Denies burning urination Musculoskeletal Musculoskeletal: Reports systems reviewed and no addt'l complaints, except as documented Integumentary Integumentary: Reports systems reviewed and no addt'l complaints, except as documented Neurologic Neurologic: Reports systems reviewed and no addt'l complaints, except as documented Psychiatric Psychiatric: Reports systems reviewed and no addt'l complaints, except as documented Endocrine Endocrinology: Reports systems reviewed and no addt'l complaints, except as documented Hematologic/Lymphatic Hematologic/Lymphatic: Reports systems reviewed and no addt'l complaints, except as documented Allergic/Immunologic Allergic/Immunologic: Reports systems reviewed and no addt'l complaints, except as documented Physical Exam Const alert, oriented x3 and no apparent distress General Appearance: cooperative, comfortable and well kempt HEENT normocephalic, head/scalp atraumatic, hearing grossly normal bilaterally and external nose normal Face and Sinus: face symmetric Nose: external nose normal External Ear: external ears normal Eyes conjunctivae normal General Eye: normal appearance of both eyes Neck supple General: trachea midline Lymph Lymphatic: no lymphedema noted Chest inspection of chest normal Chest: symmetrical chest wall rise Resp normal respiratory effort, normal air movement, no retractions and no use of accessory muscles Effort and Inspection: able to speak in complete sentences and symmetric chest movement Cardio regular rate and regular rhythm GI soft to palpation, non-tender and non-distended no CVA tenderness and external exam normal Back/Spine no CVA tenderness Extremity normal to inspection Skin no rashes or lesions noted, no wounds, skin turgor normal, no jaundice, no petechiae and no mottling Neuro oriented x3, CN's II-XII intact bilaterally and moves all extremities Psych mental status grossly normal, thought process normal, cooperative and affect normal Results Lab / Micro Data Micro: Microbiology 05/11/21 10:01 Interface Orders SARS-CoV-2 Antigen (Rapid) - Final Assessment & Plan Assessment/Plan (1) Bladder neoplasm of uncertain malignant potential: PLAN: proceed with cystoscopy and bladder biopsy with fulguration informed consent obtained
--- NOTE | 2021-05-12 08:24 | OP.PCM_ITS ---
Problems Associated Problem List Diagnoses (1) Bladder neoplasm of uncertain malignant potential: Report of Operation Date of Procedure: 05/12/21 Pre-Operative Diagnosis: bladder neoplasm of uncertain malignant potential Post-Operative Diagnosis: same Surgery/Procedure Performed:: cystoscopy with bladder biopsy and fulguration Surgeon: Danielle Calixto Type of Anesthesia: MAC Specimen's removed: bladder biopsy Description of Procedure: The patient is a 80-year-old female with an abnormal finding on office cystoscopy who now presents for bladder biopsy and fulguration. Informed consent was obtained. The patient was taken to the operating room placed on the operating room table. Anesthesia monitored the head, neck, airway, IV access and vital signs throughout the case. Once anesthesia was appropriately ministered the patient was placed into dorsal lithotomy position was prepped and draped in usual michael rile fashion. The cystoscope was inserted through the urethra under direct visualization into the urinary bladder. The bladder lesions were identified in the posterior bladder wall, however, instead of only 2 concerning areas, multiple areas of erythema were identified spread across the posterior bladder wall. In total, five biopsies were taken using flexible biopsy forceps. The tissue was then fulgurated for hemostatic control and tissue treatment. At this time the patient's bladder was emptied and the case was terminated. The patient tolerated the procedure well without complication. She was awakened and taken to the recovery room in good condition. Grafts/Implants Used: none Complications none Admit VTE Documentation VTE Present on Admission: No VTE Mechan Device Prophylaxis: SCD's VTE Pharm Prophylaxis ordered?: No
[2021-05-12] MEDS: Lactated Ringers 1,000 ML 15 ML IV (09:05)
[2021-05-12 09:18] VITALS: BP 131/84; PULSE 69; RESP 18; TEMP 36.3; O2SAT 97; BMI 25.4
--- NOTE | 2021-05-12 10:35 | PCM.DC ---
Discharge Instructions Diet Discharge Diet: No restrictions Activity Discharge Activity: Return to Normal Activity May resume sexual activity in: No Restrictions Dressing / Incision Call your doctor if you observe: Fever of 101 or Higher, Inability to urinate, Inability to have a bowel movement and Uncontrolled pain Follow Up Care Please Follow Up With: Danielle Calitxo MD When: in one week, call the office for an appt Test Results: Test results from this visit will be discussed in further detail at your follow-up appointment, if applicable. Discharge Plan Admission Attending Provider: Danielle Calixto Primary Care Provider: Adrienne Cruz Discharge Orders/Prescriptions Prescriptions: New oxycodone-acetaminophen [Percocet] 5-325 mg tablet 1 tab PO Q8H PRN (Reason: pain) 3 Days Qty: 10 RF: 0 cephalexin [cephalexin] 500 MG capsule 500 mg PO Q12 3 Days Qty: 6 RF: 0 Continued quetiapine [Seroquel] 25 mg tablet 25 mg PO DAILY RF: 0 paroxetine HCl [Paxil] 10 mg tablet 10 mg PO DAILY RF: 0 donepezil [Aricept] 10 mg tablet 10 mg PO DAILY RF: 0 rosuvastatin 10 MG tablet 10 mg PO QHS RF: 0 Referrals / Follow Up: Adrienne Cruz MD [Primary Care Provider] - Disposition Disposition (needs filled in before D/C Order can be placed): Home, Self Care
[2021-05-12 12:27] VITALS: BP 131/84; BP 137/75; PULSE 65; RESP 16; TEMP 36.2; O2SAT 95
[2021-05-12 12:45] VITALS: BP 130/77; BP 131/84; PULSE 65; RESP 16; O2SAT 94
[2021-05-12 13:00] VITALS: BP 131/84; BP 99/59; PULSE 66; RESP 16; TEMP 37.3; O2SAT 94
[2021-05-12 14:00] VITALS: BP 110/67; BP 131/84; PULSE 71; RESP 16; TEMP 37.6; O2SAT 94
[2021-05-12] MEDS: Lactated Ringers 1,000 ML 100 ML IV (14:01)
[2021-05-12 14:55] VITALS: BP 131/84
== END 2021-05-12 23:59 | disposition home or self-care (01) ==
LOC: SDC 08:48 → AC 08:49
PROVIDERS: PCP Family Medicine; Referring Provider Urology; Visit Provider Urology
PROC: 0TBB8ZX Excision of Bladder, Via Natural or Artificial Opening Endoscopic, Diagnostic (ICD-10-PCS; CPT 52204; principal; 2021-05-12 10:20)
DX: D76.3 Other histiocytosis syndromes (principal); F03.90 Unspecified dementia, unspecified severity, without behavioral disturbance, psychotic disturbance, mood disturbance, and anxiety; E78.00 Pure hypercholesterolemia, unspecified; Z79.899 Other long term (current) drug therapy; Z20.822 Contact with and (suspected) exposure to COVID-19; Z80.52 Family history of malignant neoplasm of bladder
CPT/HCPCS: 52204; 00910; 87426; 88307; 88312; 88341; 88342; C9803; J7120; J2405

== ENCOUNTER → 2021-11-16 | Outpatient (CLI) | payer MEDICARE, OTHER, SELFPAY ==
[2021-11-16 12:10] LABS: Absolute Lymphocyte Count 1.88 X10^3/uL (0.83-4.51); Absolute Neutrophil Count 3.7 X10^3/uL (2.0-7.7); Basophil# 0.04 X10^3/uL; Basophil% 0.6 % (0-1); Eosinophil# 0.24 X10^3/uL; Eosinophils% 3.7 % (0-5); Hematocrit 44.8 % (37-47); Hemoglobin 14.1 g/dL (12.0-15.0); Lymphocyte # 1.88 X10^3/ul (0.83-4.51); Lymphocyte % 29.2 % (19-41); Mean Corp Hgb Conc 31.5 g/dL (32-36); Mean Corpuscular Hgb 28.6 pg (27.0-32.0); Mean Corpuscular Volume 90.9 fL (81-99); Mean Platelet Vol. 9.6 fl (6.2-12.0); Monocyte# 0.55 X10^3/uL; Monocyte% 8.5 % (0-10); NRBC Flagged by Analyzer 0 % (0-5); Neutrophil % 57.5 % (47-70); Platelet Count 271 K/mm3 (150-450); RBC Distribution Width CV 12.6 % (11.6-14.6); RBC Distribution Width SD 41.5 fl (35.1-43.9); Red Blood Count 4.93 M/mm3 (4.2-5.4); White Blood Count 6.4 K/mm3 (4.4-11.0)
[2021-11-16 13:07] LABS: Vitamin D,25 Hydroxy 28.8 ng/mL
[2021-11-16 13:18] LABS: AST(SGOT) 23 U/L (15-37); Alanine Aminotransfer ALT/SGPT 28 U/L (13-56); Anion Gap 4 (5-15); BUN 15 mg/dL (7-18); BUN/Creat Ratio 20.7 RATIO (10-20); Chloride 106 mmol/L (98-107); Cholesterol 145 mg/dL (200); Creatinine, Serum 0.72 mg/dL (0.55-1.02); EST Glomerular Filtration Rate 83 mL/min (>60); Est Glom Filt Rate - Afr Amer 100 mL/min (>60); Glucose 71 mg/dL (74-106); High Density Lipoprotein 48 mg/dL; Potassium 3.9 mmol/L (3.5-5.1); Sodium Level 139 mmol/L (136-145); Thyroid Stim Hormone (TSH) 3.78 uIU/mL (0.358-3.74); Triglycerides 130 mg/dL; Very Low Density Lipoprotein 26 mg/dL (5-40)
== END | disposition home or self-care (01) ==
LOC: MFPLAB 10:58
PROVIDERS: PCP Family Medicine; Visit Provider Family Medicine
DX: E78.5 Hyperlipidemia, unspecified (principal); F03.90 Unspecified dementia, unspecified severity, without behavioral disturbance, psychotic disturbance, mood disturbance, and anxiety; R94.6 Abnormal results of thyroid function studies; E55.9 Vitamin D deficiency, unspecified
CPT/HCPCS: 36415; 80048; 80061; 82306; 84443; 84450; 84460; 85025

== ENCOUNTER → 2022-03-15 | Outpatient (CLI) | payer MEDICARE, OTHER, SELFPAY ==
[2022-03-15 12:33] LABS: Absolute Lymphocyte Count 1.76 X10^3/uL (0.83-4.51); Absolute Neutrophil Count 4.3 X10^3/uL (2.0-7.7); Basophil# 0.05 X10^3/uL; Basophil% 0.7 % (0-1); Eosinophil# 0.25 X10^3/uL; Eosinophils% 3.5 % (0-5); Hematocrit 42.2 % (37-47); Hemoglobin 13.8 g/dL (12.0-15.0); Lymphocyte # 1.76 X10^3/ul (0.83-4.51); Lymphocyte % 24.9 % (19-41); Mean Corp Hgb Conc 32.7 g/dL (32-36); Mean Corpuscular Hgb 29.6 pg (27.0-32.0); Mean Corpuscular Volume 90.4 fL (81-99); Mean Platelet Vol. 9.1 fl (6.2-12.0); Monocyte# 0.68 X10^3/uL; Monocyte% 9.6 % (0-10); NRBC Flagged by Analyzer 0 % (0-5); Platelet Count 262 K/mm3 (150-450); RBC Distribution Width CV 13.5 % (11.6-14.6); RBC Distribution Width SD 44.7 fl (35.1-43.9); Red Blood Count 4.67 M/mm3 (4.2-5.4); White Blood Count 7.1 K/mm3 (4.4-11.0)
[2022-03-15 12:54] LABS: ALB/GLOB Ratio 1.2 RATIO (0.9-2.4); AST(SGOT) 28 U/L (15-37); Alanine Aminotransfer ALT/SGPT 49 U/L (13-56); Albumin, Serum 3.5 g/dL (3.2-5.0); Alkaline Phosphatase 106 U/L (45-117); Anion Gap 6 (5-15); BUN 15 mg/dL (7-18); BUN/Creat Ratio 23.7 RATIO (10-20); Chloride 104 mmol/L (98-107); Creatinine, Serum 0.63 mg/dL (0.55-1.02); EST Glomerular Filtration Rate 96 mL/min (>60); Est Glom Filt Rate - Afr Amer 117 mL/min (>60); Globulin 2.8 g/dL (2.2-4.2); Glucose 91 mg/dL (74-106); Potassium 4.2 mmol/L (3.5-5.1); Protein, Total 6.3 g/dL (6.4-8.2); Sodium Level 138 mmol/L (136-145)
[2022-03-17 10:22] LABS: Vitamin D,25 Hydroxy 28.9 ng/mL
[2022-03-17 10:25] LABS: AST(SGOT) 28 U/L (15-37); Alanine Aminotransfer ALT/SGPT 51 U/L (13-56); Cholesterol 167 mg/dL (200); High Density Lipoprotein 43 mg/dL; Thyroid Stim Hormone (TSH) 1.02 uIU/mL (0.358-3.74); Triglycerides 226 mg/dL; Very Low Density Lipoprotein 45 mg/dL (5-40)
== END | disposition home or self-care (01) ==
LOC: MFPLAB 11:07
PROVIDERS: PCP Family Medicine; Visit Provider Family Medicine
DX: Z01.818 Encounter for other preprocedural examination (principal); E78.5 Hyperlipidemia, unspecified; E03.9 Hypothyroidism, unspecified; E55.9 Vitamin D deficiency, unspecified
CPT/HCPCS: 36415; 80053; 80061; 82306; 84443; 84450; 84460; 85025

== ENCOUNTER → 2023-03-28 | Outpatient (CLI) | payer MEDICARE, OTHER, SELFPAY ==
[2023-03-28 16:39] LABS: AST(SGOT) 78 U/L (15-37); Alanine Aminotransfer ALT/SGPT 132 U/L (13-56); Cholesterol 146 mg/dL (200); High Density Lipoprotein 39 mg/dL; T4 Total, Thyroxin 9.3 ug/dL (4.8-13.9); Thyroid Stim Hormone (TSH) 1.79 uIU/mL (0.358-3.74); Triglycerides 197 mg/dL; Very Low Density Lipoprotein 39 mg/dL (5-40)
== END | disposition home or self-care (01) ==
LOC: MFPLAB 13:34
PROVIDERS: PCP Family Medicine; Visit Provider Family Medicine
DX: E78.5 Hyperlipidemia, unspecified (principal); E03.9 Hypothyroidism, unspecified
CPT/HCPCS: 36415; 80061; 84436; 84443; 84450; 84460

== ENCOUNTER → 2023-04-28 | Outpatient (REF) | payer MEDICARE, OTHER, SELFPAY ==
--- OUTSIDE RECORDS SUMMARY | 2023-04-28 05:26 | XMS RPT_ITS | CCD ---
Author Name Unknown Address [address] [place] [address] Organization [facility] Care Team Providers Care Auto Body Technician Name Role Phone Michelle Julien LPN Unavailable [phone] Michelle Julien LPN Unavailable Priscilla Bower LPN Unavailable Unavailable Enoc Minor Unavailable Medications Completed/Discontinued Medications Medication Drug Class(es) Dates Sig (Normalized) Sig (Original) cyclobenzaprine hydrochloride 10 mg oral tablet (2 sources) Muscle Relaxant Start: 12-02-2016 CYCLOBENZAPRINE HCL 10 MG TABS 1 tablet nightly as needed for pain CYCLOBENZAPRINE HCL [id number] Enoc NASH naproxen 500 mg delayed release oral tablet (8 sources) Nonsteroidal Anti-inflammatory Drug Start: 12-02-[address] 500 MG TBEC 1 tablet twice a day NAPROXEN [id number] Enoc NASH Problems Problem Classification Problem Date Documented Da te Episodic/Chronic Lymphadenitis (4 sources) Acute lymphadenitis; Translations: [Acute lymphadenitis, unspecified] Onset: 08-13-2016 08-13-2016 Episodic Superficial injury; contusion (4 sources) Contusion of right shoulder, initial encounter; Translations: [Contusion of right front wall of thorax, initial encounter] Onset: 12-02-2016 12-02-2016 Episodic Results Test Name Value Interpretation Reference Range Facil ity Vital Signs Date Time Vital Sign Value Performing Clinician Maddie archuleta 12-02-2016 13:01-0400 Body height 162.56 cm Priscilla Bower LPN [facility] Work Phone: 12-02-2016 13:01-0400 Body mass index (BMI) [Ratio] 24.2 kg/m2 Priscilla Bower LPN [facility] Work Phone: 12-02-2016 13:01-0400 Body temperature 98.2 [degF] Priscilla Bower LPN [facility] Work Phone: 12-02-2016 13:01-0400 Body weight 63.96 kg Priscilla Bower LPN [facility] Work Phone: 12-02-2016 13:01-0400 Diastolic blood pressure 74 mm[Hg] Priscilla Bower LPN [facility] Work Phone: 12-02-2016 13:01-0400 Heart rate 72 /min Priscilla Bower LPN [facility] Work Phone: 12-02-2016 13:-0400 Respiratory rate 12 /min Priscilla Bower LPN [facility] Work Phone: 12-02-2016 13:01-0400 Systolic blood pressure 154 mm[Hg] Priscilla Bower LPN [facility] Work Phone: 08-13-2016 14:52-0400 Body height 162.56 cm Michelle Julien MACHINE BINDING FOLDER Work Phone: [facility] Work Phone: 08-13-2016 14:52-0400 Body mass index (BMI) [Ratio] 25.06 kg/m2 Michelle Boltonar MACHINE B[employer]ING [employer]DER Work Phone: [facility] Work Phone: 08-13-2016 14:52-0400 Body temperature 98.9 [degF] Michelle Boltonar MACHINE BINDING FOLDER Work Phone: [facility] Work Phone: 08-13-2016 14:52-0400 Body weight 66.23 kg Michelle Boltonar MACHINE B[employer]ING FOLDER Work Phone: [facility] Work Phone: 08-13-2016 14:52-0400 Diastolic blood pressure 90 mm[Hg] Michelle Boltonar MACHINE BINDING FOLDER Work Phone: [facility] Work Phone: 08-13-2016 14:52-0400 Heart rate 83 /min Michelle Julien MACHINE BINDING FOLDER Work Phone: [facility] Work Phone: 08-13-2016 14:52-0400 Respiratory rate 16 /min Michelle Julien MACHINE BINDING FOLDER Work Phone: [facility] Work Phone: 08-13-2016 14:52-0400 SaO2% (BldA) [Mass fraction] 97 % Michelle Julien MACHINE BINDING FOLDER Work Phone: [facility] Work Phone: 08-13-2016 14:52-0400 Systolic blood pressure 142 mm[Hg] Michelle Julien MACHINE BINDING FOLDER Work Phone: [facility] Work Phone: Procedures Date Procedure Procedure Detail Performing Clinician Start: 12-02-2016 End: 12-02-2016 Documentation of current medications Priscilla Sathish CONTRERAS Start: 08-13-2016 End: 08-13-2016 Documentation of current medications Michelle Julien MACHINE BINDING F[employer]DER Work Phone: Plan of Treatment Date Care Activity Detail Author Start: 12-02-2016 End: 12-02-2016 Patient encounter procedure Appointment [facility] Work Phone: Start: 12-02-2016 End: 12-02-2016 Chest x-ray X-Ray, Chest, PA & Lateral [facility] Work Phone: Start: 12-02-2016 End: 12-02-2016 Radex ribs unilateral 2 views X-Ray, Rib, Unilateral [facility] Work Phone: Start: 08-13-2016 End: 08-13-2016 Patient encounter procedure Appointment [facility] Work Phone: [facility] Work Phone: Fall risk assessment 12-02-2016 Note Date & Type Note Facility Summary Purpose Family History No Family History Records FoundNo Family History Records Found Advance Directives No Advanced Directives Records FoundNo Advanced Directives Records Found Additional Source Comments INFORMATION SOURCE (unrecogn ized section and content) DATE CREATED AUTHOR AUTHOR'S TRU CARRENO 09/11/2020 [facility] FOR RECORDS PERTAINING TO PATIENTS WHO ARE OR HAVE BEEN ENROLLED IN A CHEMICAL DEPENDENCY/SUBSTANCEABUSE PROGRAM, SOME INFORMATION MAY BE OMITTED. This clinical summary was aggregated from multiple sources. Caution should be exercised in using it in the provision of clinical care. This summary normalizes information from multiple sources, and as a consequence, information in this document may materially change the coding, format and clinical context of patient data. In addition, data may be omitted in some cases. CLINICAL DECISIONS SHOULD BE BASED ON THE PRIMARY CLINICAL RECORDS. [employer] [facility]. provides no warranty or guarantee of the accuracy or completeness of information in this document.
[2023-04-28 09:24] LABS: AST(SGOT) 75 U/L (15-37); Alanine Aminotransfer ALT/SGPT 143 U/L (13-56)
== END ==
LOC: OLS.SWAL 05:00
PROVIDERS: PCP Family Medicine; Visit Provider Family Medicine
DX: R74.01 Elevation of levels of liver transaminase levels (principal)
CPT/HCPCS: 36415; 84450; 84460

== ENCOUNTER → 2023-05-02 | Outpatient (REF) | payer MEDICARE, OTHER, SELFPAY ==
--- OUTSIDE RECORDS SUMMARY | 2023-05-02 04:34 | XMS RPT_ITS | CCD ---
Author Name Unknown Address [address] [place] [address] Organization [facility] Care Team Providers Care Global Clinical Leader Name Role Phone Michelle Julien LPN Unavailable [phone] Michelle Julien LPN Unavailable Priscilla Bower LPN Unavailable Unavailable Enoc Minor Unavailable [phone] Medications Completed/Discontinued Medications Medication Drug Class(es) Dates Sig (Normalized) Sig (Original) cyclobenzaprine hydrochloride 10 mg oral tablet (2 sources) Muscle Relaxant Start: 12-02-2016 CYCLOBENZAPRINE HCL 10 MG TABS 1 tablet nightly as needed for pain CYCLOBENZAPRINE HCL [id number] Enoc NASH naproxen 500 mg delayed release oral tablet (8 sources) Nonsteroidal Anti-inflammatory Drug Start: 12-02-[address] 500 MG TBEC 1 tablet twice a day NAPROXEN [id number] Enoc NASH Problems Problem Classification Problem Date [...] Body height 162.56 cm Priscilla Bower LPN [facility] Work Phone: 12-02-2016 13:01-0400 Body mass index (BMI) [Ratio] 24.2 kg/m2 Priscilla Bower LPN [facility] Work Phone: 12-02-2016 13:01-0400 Body temperature 98.2 [degF] Priscilla Bower LPN [facility] Work Phone: 12-02-2016 13:01-0400 Body weight 63.96 kg Priscilla Bower LPN [facility] Work Phone: 12-02-2016 13:01-0400 Diastolic blood pressure 74 mm[Hg] Priscilla Bower LPN [facility] Work Phone: 12-02-2016 13:01-0400 Heart rate 72 /min Priscilla Bower LPN [facility] Work Phone: 12-02-2016 13:-0400 Respiratory rate 12 /min Priscilla Bower LPN [facility] Work Phone: 12-02-2016 13:01-0400 Systolic blood pressure 154 mm[Hg] Priscilla Bower LPN [facility] Work Phone: 08-13-2016 14:52-0400 Body height 162.56 cm Michelle Julien [employer] Work Phone: [facility] Work Phone: 08-13-2016 14:52-0400 Body mass index (BMI) [Ratio] 25.06 kg/m2 Michelle Boltonar [employer] Work Phone: [facility] Work Phone: 08-13-2016 14:52-0400 Body temperature 98.9 [degF] Michelle Boltonar [employer] Work Phone: [facility] Work Phone: 08-13-2016 14:52-0400 Body weight 66.23 kg Michelle Boltonar [employer] Work Phone: [facility] Work Phone: 08-13-2016 14:52-0400 Diastolic blood pressure 90 mm[Hg] Michelle Boltonar [employer] Work Phone: [facility] Work Phone: 08-13-2016 14:52-0400 Heart rate 83 /min Michelle Julien [employer] Work Phone: [facility] Work Phone: 08-13-2016 14:52-0400 Respiratory rate 16 /min Michelle Julien [employer] Work Phone: [facility] Work Phone: 08-13-2016 14:52-0400 SaO2% (BldA) [Mass fraction] 97 % Michelle Julien [employer] Work Phone: [facility] Work Phone: 08-13-2016 14:52-0400 Systolic blood pressure 142 mm[Hg] Michelle Julien [employer] Work Phone: [facility] Work Phone: Procedures Date Procedure Procedure Detail Performing Clinician Start: 12-02-2016 End: 12-02-2016 Documentation of current medications Priscilla Sathish CONTRERAS Start: 08-13-2016 End: 08-13-2016 Documentation of current medications Michelle Julien [employer] Work Phone: Plan of Treatment Date Care Activity Detail Author Start: 12-02-2016 End: 12-02-2016 Patient encounter procedure Appointment [facility] Work Phone: Start: 12-02-2016 End: 12-02-2016 Chest x-ray X-Ray, Chest, PA & Lateral [facility] Work Phone: Start: 12-02-2016 End: 12-02-2016 Radex ribs unilateral 2 views X-Ray, Rib, Unilateral [facility] Work Phone: Start: 08-13-2016 End: 08-13-2016 Patient encounter procedure Appointment [facility] Work Phone: [facility] Work Phone: Fall risk assessment 12-02-2016 Note Date & Type Note Facility Summary Purpose Family History No Family History Records FoundNo Family History Records Found Advance Directives No Advanced Directives Records FoundNo Advanced Directives Records Found Additional Source Comments INFORMATION SOURCE (unrecogn ized section and content) DATE CREATED AUTHOR AUTHOR'S TRU CARRENO 09/11/2020 [facility] FOR RECORDS PERTAINING TO PATIENTS WHO ARE [...] BE BASED ON THE PRIMARY CLINICAL RECORDS. [employer] [facility]. provides no warranty or guarantee of the accuracy or completeness of information in this document.
[2023-05-03 14:09] LABS: EBV Acute VCA IgM < 36.0 U/mL (0.0-35.9); EBV Nuclear Antigen IgG < 18.0 U/mL (0.0-17.9)
== END ==
LOC: OLS.SWAL 05:00
PROVIDERS: PCP Family Medicine; Visit Provider Family Medicine
DX: R74.01 Elevation of levels of liver transaminase levels (principal)
CPT/HCPCS: 36415; 86664; 86665

== ENCOUNTER → 2023-05-16 | Outpatient (CLI) | payer MEDICARE, OTHER, SELFPAY ==
--- NOTE | 2023-05-16 09:16 | US_ITS ---
STUDY: ABDOMINAL ULTRASOUND - RIGHT UPPER QUADRANT REASON FOR VISIT: Female, 82 years old elevated liver function tests. TECHNIQUE: Ultrasound evaluation of the right upper quadrant was performed with real-time and static alejandre-scale imaging. TECHNICAL QUALITY: Limited. Examination limited due to the patient?s condition. COMPARISON: None. FINDINGS: Liver: The liver measures 15.5 cm. There is increased echogenicity consistent with fatty infiltration. The bile ducts are within normal limits. There is hepatic color flow. The direction of portal flow is hepatopetal. There is no demonstrated mass lesion. Gallbladder: Normal distended gallbladder. The gallbladder wall measures 1.5 mm. There is a negative sonographic Matos''s sign. There is no pericholecystic fluid. There are no gallstones. Common Bile Duct (C.B.D.): The common bile duct measures 6.8 mm. Pancreas: Normal size of the head, body and tail of the pancreas. There is normal echogenicity of the pancreas. There is no demonstrated pancreatic mass or cyst. Right Kidney: Normal size of the right kidney. The right kidney measures 9.2 cm x 5.6 cm x 4.3 cm. Normal renal cortex. The right cortex measures 1.0 cm. There is a 1.1 cm x 1.1 cm x 1 cm cyst in the lateral midportion of the kidney There is no right hydronephrosis. US/Abdomen Limited IMPRESSION: Fatty infiltration of the liver. Small right renal cyst. Electronically Signed: Narendra Ward MD at 13:54 EST ,
== END | disposition home or self-care (01) ==
PROVIDERS: PCP Family Medicine; Referring Provider Family Medicine; Visit Provider Family Medicine
DX: R79.89 Other specified abnormal findings of blood chemistry (principal)
CPT/HCPCS: 76705

== ENCOUNTER 2023-06-01 19:05 | Observation (INO) | payer MEDICARE, OTHER, SELFPAY ==
[2023-06-01] VITALS (8 sets, daily range): BP systolic 122–145; BP diastolic 70–85; PULSE 58–70; RESP 16–20; TEMP 35.3–36.6; O2SAT 90–99; BMI 31.1; BMI 29.9
--- NOTE | 2023-06-01 19:08 | EKG12_ITS ---
Test Reason : STROKE Blood Pressure : / mmHG Vent. Rate : 058 BPM Atrial Rate : 058 BPM P-R Int : 214 ms QRS Dur : 098 ms QT Int : 498 ms P-R-T Axes : 065 040 082 degrees QTc Int : 488 ms Sinus bradycardia with 1st degree A-V block Low voltage QRS Nonspecific T wave abnormality Prolonged QT Abnormal ECG Confirmed by ED RUGGIERO, JOYCE ([id number]), market editor JOSELIN JIMENEZ ([id number]) on 06/03/2023 10:36:19 AM Referred By: Confirmed By:JOYCE WARD MD
--- NOTE | 2023-06-01 19:08 | CT_ITS ---
We are attempting to reach an attending provider to discuss findings. An addendum with communication details will be sent when the communication is complete. INDICATION: Neuro deficit, acute, stroke suspected EXAMINATION: CT BRAIN - CT Head Stroke Protocol W/O Contrast Injection TECHNIQUE: Multiple axial images were obtained of the head without intravenous contrast. A radiation dose optimization technique was used for this scan. IV Contrast dosage and agent: None. RADIATION DOSAGE (If Supplied By Facility): CTDIvol = ( ) mGy, DLP = ( 812.98 ) mGycm COMPARISON: None FINDINGS: BRAIN PARENCHYMA: No intra- or extra-axial hemorrhage. Mild periventricular white matter ischemic changes No evidence of acute infarct. No intracranial mass or mass effect. There is preservation of the alejandre/white matter interface. Posterior fossa structures are unremarkable. CSF SPACES: Appropriate for age. No hydrocephalus. Basal cisterns are patent. CALVARIUM, SKULL BASE, PARANASAL SINUSES AND MASTOID AIR CELLS: Mild mucosal thickening of the right maxillary sinus.. No discrete lytic or blastic abnormalities. ORBITS: Postsurgical changes of the orbits. CT/STROKE Brain/Head without Cont IMPRESSION: Mild periventricular white matter ischemic changes. No mass or acute bleed.. If concern for acute infarct MRI recommended Electronically Signed: Morales Topete MD at 19:28 EST ,
[2023-06-01 19:15] LABS: Absolute Lymphocyte Count 3.79 X10^3/uL (0.83-4.51); Absolute Neutrophil Count 3.3 X10^3/uL (2.0-7.7); Basophil# 0.07 X10^3/uL; Basophil% 0.8 % (0-1); Eosinophil# 0.31 X10^3/uL; Eosinophils% 3.7 % (0-5); Hemoglobin 14.3 g/dL (12.0-15.0); Lymphocyte # 3.79 X10^3/ul (0.83-4.51); Lymphocyte % 44.9 % (19-41); Mean Corp Hgb Conc 31.8 g/dL (32-36); Mean Corpuscular Hgb 28.9 pg (27.0-32.0); Mean Corpuscular Volume 91.1 fL (81-99); Mean Platelet Vol. 8.7 fl (6.2-12.0); Monocyte# 0.76 X10^3/uL; NRBC Flagged by Analyzer 0 % (0-5); Neutrophil # 3.33 X10^3/uL (2.7-7.7); Neutrophil % 39.5 % (47-70); Platelet Count 238 K/mm3 (150-450); RBC Distribution Width CV 12.9 % (11.6-14.6); RBC Distribution Width SD 43.1 fl (35.1-43.9); Red Blood Count 4.94 M/mm3 (4.2-5.4); White Blood Count 8.4 K/mm3 (4.4-11.0)
--- NOTE | 2023-06-01 19:15 | CT_ITS ---
We are attempting to reach an attending provider to discuss findings. An addendum with communication details will be sent when the communication is complete. STUDY: CTA HEAD AND NECK WITH CONTRAST REASON FOR EXAM: Female, 82 years old. Neuro deficit, acute, stroke suspected RADIATION DOSAGE (If Supplied By Facility): CTDIvol = ( 23.66 ) mGy, DLP = ( 713.75 ) mGycm TECHNIQUE: CT angiography was performed with a multi-detector CT scanner. Data acquisition was obtained from the skull base through the vertex following intravenous administration of IV 100mL Isovue-370. MIP images were reconstructed from the axial data set. Post-processing of the angiographic images was performed, with multiplanar reformation and 3D reconstruction. Individualized dose optimization techniques were used for this CT. COMPARISON: No relevant priors. FINDINGS: Normal bilateral petrous carotid arteries. Normal right cavernous carotid artery with a normal supraclinoid bifurcation. Minor calcific plaquing of the left cavernous carotid artery with a normal supraclinoid bifurcation. Normal right A1 segments of the anterior cerebral artery. Normal left A1 segments of the anterior cerebral artery. Anterior communicating artery not visualized consistent with normal variant). Normal bilateral A2 segments of the anterior cerebral arteries. Normal right M1 and M2 segments of the middle cerebral arteries, with a normal M1 bifurcation. Normal left M1 and M2 segments of the middle cerebral arteries, with a normal M1 bifurcation. Hypoplastic proximal right posterior communicating artery (PCOM). Nonvisualized left posterior communicating artery consistent with normal variant Normal bilateral vertebral arteries. Normal basilar artery with a normal basilar bifurcation. The visualized bilateral superior cerebellar (SCA) arteries are normal. Hypoplastic P1 segment of the right posterior cerebral normal left posterior cerebral arteries. There is no demonstrated aneurysm of the washoe of Pearson. AORTIC ARCH: Mild calcific plaquing of the visualized aortic arch. Normal origins of the brachiocephalic, left common carotid, and left subclavian arteries. RIGHT CAROTID ARTERIES: Minor calcific plaquing of the right common carotid artery (CCA). and right common carotid bulb. Normal origin of the right internal carotid (ICA) artery without a hemodynamically significant stenosis. Normal visualized cervical portion of the right internal carotid artery. Normal origin of the right external carotid artery (ECA). LEFT CAROTID ARTERIES: Normal left common carotid artery (CCA). Minor calcific plaquing of the left common carotid bulb. Normal origin of the left internal carotid (ICA) artery without a hemodynamically significant stenosis. Normal visualized cervical portion of the left internal carotid artery. Normal origin of the left external carotid artery (ECA). VERTEBRAL ARTERIES: Normal bilateral vertebral arteries. CT/STROKE CTA Head AND Neck W/Con IMPRESSION: Mild atherosclerotic changes of the head and neck. No evidence for hemodynamically significant stenosis or major vessel occlusion Electronically Signed: Morales Topete MD at 19:45 EST Reading Location ID and State: [facility] / [place] Tel , Service support ,
[2023-06-01 19:24] LABS: International Normalized Ratio 0.9; Prothrombin Time (Protime)PT. 12.4 SECONDS (11.7-14.9)
[2023-06-01 19:25] LABS: Partial Thromboplast Time 35.7 Seconds (24.1-36.2)
[2023-06-01 19:33] LABS: Anion Gap 3 (5-15); BUN 13 mg/dL (7-18); BUN/Creat Ratio 15.8 RATIO (10-20); Calcium,Total 9.6 mg/dL (8.5-10.1); Chloride 106 mmol/L (98-107); Creatinine, Serum 0.82 mg/dL (0.55-1.02); EST Glomerular Filtration Rate 71 mL/min (>60); Est Glom Filt Rate - Afr Amer 86 mL/min (>60); Estimated Creatinine Clearance 54.74 ml/min; Glucose 162 mg/dL (74-106); Potassium 3.6 mmol/L (3.5-5.1); Sodium Level 138 mmol/L (136-145); Troponin-I HS 6 pg/mL (3.0-54.0)
--- NOTE | 2023-06-01 19:57 | EDS_ITS ---
HPI History of Present Illness Chief Complaint: Stroke Alert Narrative Narrative: 82-year-old female presents with symptoms of slurred speech and dizziness which began after she sat down at the dinner table. Per EMS, her symptoms began at 630, less than an hour prior to arrival. She states she became very dizzy and then had problems with speech. They noticed left facial droop upon arrival. However, they states that in route her symptoms have drastically improved. Patient denies any headache. No chest pain or other symptoms. [facility] Medical History (Updated 06/01/23 @ 20:54 by Andrés Acuña MD) Bladder neoplasm of uncertain malignant potential Dementia DVT (deep venous thrombosis) High cholesterol History of basal cell cancer History of ductal carcinoma in situ of breast Hypercholesteremia Non-smoker Post-menopausal Skin cancer Wears dentures Wears glasses Home Medications rosuvastatin 10 mg tablet 10 mg PO QHS cholesterol lowering 02/17/17 [History Last Taken 02/16/17] donepezil 10 mg tablet (Aricept) 10 mg PO DAILY 01/15/21 [History Last Taken Unknown] paroxetine HCl 10 mg tablet (Paxil) 10 mg PO DAILY 01/15/21 [History Last Taken Unknown] quetiapine 25 mg tablet (Seroquel) 25 mg PO DAILY 01/15/21 [History Last Taken Unknown] cephalexin 500 mg capsule 500 mg PO Q12 post-operative 3 days #6 CAPSULES 05/12/21 [Rx Last Taken Unknown] oxycodone-acetaminophen 5 mg-325 mg tablet (Percocet) 1 tab PO Q8H PRN pain 3 days #10 tabs 05/12/21 [Rx Last Taken Unknown] doxepin 10 mg capsule 10 mg PO DAILY PRN anxiety 06/01/23 [History Last Taken Unknown] levothyroxine 50 mcg tablet 50 mcg PO DAILY 06/01/23 [History Last Taken Unknown] Allergy/AdvReac Type Severity Reaction Status Date / Time valacyclovir [From Valtrex] Allergy Intermediate Rash Verified 05/12/21 09:17 Family History (Updated 06/01/23 @ 20:[address] Haven Watson MD) Mother Breast cancer Sister Colon cancer Breast cancer Father Parkinsons Heart disease Myocardial infarction Other Bladder cancer Brain cancer Surgical History (Updated 06/01/23 @ 20:[address] Haven Watson MD) History of bladder surgery History of lumpectomy of left breast Hx of vein stripping Social History household members: none current occupational status: retired Smoking Status: Never smoker alcohol intake: never substance use type: does not use what type of physical activity do you participate in: walking frequency: 3-4 times per week seatbelt use: always do you feel safe at home: Yes additional social history: ROS ROS ED ROS Narrative Constitutional: No fever, no chills. HEENT: No sore throat. No neck pain. No loss of vision. No rhinorrhea. Reported left-sided facial droop initially. Cardiovascular: No chest pain. No palpitations. No pedal edema. Respiratory: No cough, no shortness of breath. Abdominal: No abdominal pain. No nausea. No vomiting. Genitourinary: No dysuria. No hematuria. Musculoskeletal: No myalgias. No arthralgias. Neurologic: No headaches. Positive dizziness. No lightheadedness. Skin: No rash. No change in color. Psychiatric: No depression. No anxiety. EXAM Physical Exam Narrative Exam Narrative: Afebrile. Vital signs noted. HEENT: Normocephalic. Atraumatic. PERRL, EOMI. Neck soft and supple. No point tenderness or step off. Cardiovascular: Regular rate and rhythm. No murmurs, rubs, or gallops appreciated. Respiratory: No tachypnea. Lungs clear to auscultation bilaterally. Gastrointestinal: Abdomen soft, nontender, with normoactive bowel sounds. No rebound or guarding. Neurological: Awake. Alert. Nonfocal, nonlateralizing. Skin: No rash. Normal color. No pallor. Musculoskeletal: No pedal edema. Full range of motion extremities. Const Vital Signs: 06/01/23 19:16 06/01/23 19:24 06/01/23 19:24 Temperature 98 F 95.6 F L Temperature Source Temporal Temporal Pulse Rate 60 Respiratory Rate 18 Blood Pressure 132/71 H Blood Pressure Mean 91 Pulse Ox 90 95 Oxygen Delivery Method Room Air Nasal Cannula Oxygen Flow Rate (L/min) 2 06/01/23 19:42 06/01/23 19:54 06/01/23 20:24 Temperature Temperature Source Pulse Rate 60 58 L Respiratory Rate 18 17 Blood Pressure 145/73 H 124/83 H Blood Pressure Mean 97 96 Pulse Ox 99 99 99 Oxygen Delivery Method Nasal Cannula Nasal Cannula Nasal Cannula Oxygen Flow Rate (L/min) 2 2 2 NIHSS NIHSS Initial: 1a Level of Consciousness: 0 1b LOC Questions (Score 2 if aphasic/stupor): 0 1c LOC Commands (Only score 1st attempt): 0 2 Best Gaze (If aphasic, use reflexive mvmts.): 0 3 Visual: 0 4 Facial Palsy: 0 5 Motor Arm Right (UN = amputation/fusion): 0 5 Motor Arm Left: 0 6 Motor Leg Right: 0 6 Motor Leg Left: 0 7 Limb ataxia (Only + if out of proportion): 0 8 Sensory (Aphasia/stupor=0 or 1, coma=2): 0 10 Dysarthria (mute, coma=2, intubated=UN): 0 11 Extinction and Inattention (only scored if +): 0 Total Score: 0 MDM MDM MDM Narrative Medical decision making narrative: Concern is for TIA versus stroke. There is no evidence of facial droop currently. Prehospital stroke team was called and protocol followed. EKG was obtained and interpreted by myself independently as sinus bradycardia at 58 bpm without ectopy or acute ST changes. No STEMI. No significant change from EKG dated August 07, 2020 reviewed. I reviewed her laboratory work and she has a normal white count of 8.4, hemoglobin 14.3, hematocrit 45.0, platelet count normal at 238. INR is normal at 0.9 with a PTT 35.7. Electrolyte panel is grossly unremarkable save for anion gap low at 3. Glucose is appropriately elevated at 162. I have no concern for diabetic ketoacidosis. High-sensitivity troponin is 6. I received a call from the radiologist twice [address] of the brain which I discussed with him which shows no acute process. The other was for the CTA of the head and neck which showed no evidence of large vessel occlusion but perhaps atherosclerotic disease of the carotids. Chest x-ray interpreted by myself and 1 view independently shows no evidence of a pneumonia or pneumothorax. I reviewed the radiology report which confirms my independent interpretation. However, patient was borderline hypoxic at 90% on room air was placed on nasal cannula oxygen by the RN. At this point in time, her symptoms have essentially resolved, she states that she does not feel as dizzy. The patient was seen and evaluated by the stroke neurologist via telemedicine who did not recommend TNK as she has a negative NIH stroke scale and recommended nothing stronger than aspirin. I then discussed patient with Dr. Haven Watson for observation in PCU. Patient is in stable condition. History & Record Review Discussion w/independent historian: EMS personnel and Patient Additional record(s) reviewed:: Prior ED visit Lab Data Attestation: I reviewed the patient's lab results. Labs: Laboratory Results - last 24 hr 06/01/23 19:07 WBC 8.4 RBC 4.94 Hgb 14.3 Hct 45.0 MCV 91.1 MCH 28.9 MCHC 31.8 L RDW Std Deviation 43.1 RDW Coeff of Daria 12.9 Plt Count 238 MPV 8.7 Immature Gran % (Auto) 2.100 H Neut % (Auto) 39.5 L Lymph % (Auto) 44.9 H [place] % (Auto) 9.0 Eos % (Auto) 3.7 Baso % (Auto) 0.8 Absolute Neuts (auto) 3.3 Absolute Lymphs (auto) 3.79 Nucleated RBC % 0 PT 12.4 INR 0.9 APTT 35.7 Sodium 138 Potassium 3.6 Chloride 106 Carbon Dioxide 29.0 Anion Gap 3 L BUN 13 Creatinine 0.82 Estim Creat Clear Calc 54.74 Est GFR (MDRD) Af Amer 86 Est GFR (MDRD) Non-Af 71 BUN/Creatinine Ratio 15.8 Glucose 162 H Calcium 9.6 Troponin I High Sens 6 Radiography Diagnostic Testing: Clinical Impression(s) from Imaging Studies Brain CT 06/01/23 19:08 IMPRESSION: Mild periventricular white matter ischemic changes. No mass or acute bleed.. If concern for acute infarct MRI recommended Electronically Signed: Morales Topete MD at 19:28 EST , ADDENDUM: 06/01/231935 IMPRESSION: Mild periventricular white matter ischemic changes. No mass or acute bleed.. If concern for acute infarct MRI recommended N.B. : The above Results were Read Back by Morales Topete MD to Andrés Acuña MD, and understanding confirmed on 06/01/2023 19:29:49 (ET). Electronically Signed: Morales Topete MD at 19:28 EST , ADDENDUM: 06/01/231944 IMPRESSION: Mild periventricular white matter ischemic changes. No mass or acute bleed.. If concern for acute infarct MRI recommended N.B. : The above Results were Read Back by Morales Topete MD to Andrés Acuña MD, and understanding confirmed on 06/01/2023 19:38:11 (ET). Electronically Signed: Morales Topete MD at 19:28 EST , Head/Neck CTA 06/01/23 19:15 IMPRESSION: Mild atherosclerotic changes of the head and neck. No evidence for hemodynamically significant stenosis or major vessel occlusion Electronically Signed: Morales Topete MD at 19:45 EST , ADDENDUM: 06/01/231951 IMPRESSION: Mild atherosclerotic changes of the head and neck. No evidence for hemodynamically significant stenosis or major vessel occlusion N.B. : The above Results were Read Back by Morales Topete MD to Andrés Acuña MD, and understanding confirmed on 06/01/2023 19:46:01 (ET). Electronically Signed: Morales Topete MD at 19:45 EST , Chest X-Ray 06/01/23 20:18 IMPRESSION: No acute cardiopulmonary pathology Electronically Signed: Morales Topete MD at 20:48 EST , Discharge Plan Dx/Rx/DC Orders Clinical Impression: Dizziness, TIA (transient ischemic attack), Facial droop Disposition Disposition: Acute Care Hospital [facility]
--- NOTE | 2023-06-01 20:18 | RAD_ITS ---
STUDY: X-RAY CHEST REASON FOR EXAM: Female, 82 years old. Neuro deficit, acute, stroke suspected TECHNIQUE: AP portable COMPARISON: February 17, 2017. FINDINGS: Nonspecific elevation of right hemidiaphragm.. There is no demonstrated pleural abnormality. Normal size heart. Normal mediastinum and randy. Normal visualized pulmonary arteries. Tortuous mildly calcified aortic arch and descending thoracic aorta. Normal visualized thoracic spine. Normal visualized ribs, clavicles, and shoulders. There is no demonstrated abnormality of the visualized soft tissue structures of the upper abdomen. RAD/Chest 1 View IMPRESSION: No acute cardiopulmonary pathology Electronically Signed: Morales Topete MD at 20:48 EST ,
--- NOTE | 2023-06-01 20:56 | HP.PCM.HOS_ITS ---
HPI - General General Date of Admission: 06/01/23 Date of Service: 06/01/23 Chief Complaint: L facial droop, dysarthria, ? syncopal event. HPI Narrative The patient is an 82 y/o F residing in assisted living at [facility] w/ PMHx: Hypothyroidism, Anxiety and Depression, Obesity, Hx VTE (DVT), Hx L Breast Ductal CA, Hx bladder neoplasm of unclear specific significance, HLD, Dementia unclear type with unclear behavioral disturbance history who presents to the [facility] ED on 06/01/23 with history of onset slurred speech and dizziness which began after she sat down for dinner with symptoms starting at approximately 6:30 PM with upon EMS arrival noted left facial droop however on route her symptoms drastically improved. Stroke alert was initiated and per stroke team patient family had reported increased confusion above her baseline dementia with onset suddenly at dinner of dizziness with left-sided facial droop and altered speech with diaphoresis and initially noted become very stiff before she then slumped over to the right. In the ED initial NIH stroke scale noted to be 1 for mild to moderate dysarthria. No mention from facility regarding loss of bowel or bladder. Workup in the ED included T98, heart rate 60, BP 132/71 with most recent repeat 145/73, respiratory rate 18, initially 90% on room air and eventually placed on 2 L nasal cannula ranging 95 to 99%, CBC with WBC 8.4, hemoglobin 14.3, platelets 238 with increased immature granulocytes, unremarkable coags, BMP with glucose 162 otherwise not marked appearing, troponi n 6, CT of the brain with mild periventricular right matter ischemic changes with no acute intracranial findings, CTA head and neck with mild atherosclerotic changes of the head and neck with no evidence for hemodynamically significant stenosis or major vessel occlusion, EKG SR with no acute evidence of ischemia. Telestroke recommendation for further evaluation of syncope versus seizure versus TIA with continuation of baby aspirin, recommendation for urinalysis, orthostatics to be obtained, stroke lab workup, MRI of the brain as well as echocardiogram. [facility], [facility] Medical History Bladder neoplasm of uncertain malignant potential Dementia DVT (deep venous thrombosis) High cholesterol History of basal cell cancer History of ductal carcinoma in situ of breast Hypercholesteremia Non-smoker Post-menopausal Skin cancer Wears dentures Wears glasses Home Medications rosuvastatin 10 mg tablet 10 mg PO QHS cholesterol lowering 02/17/17 [History Last Taken 02/16/17] donepezil 10 mg tablet (Aricept) 10 mg PO DAILY 01/15/21 [History Last Taken Unknown] paroxetine HCl 10 mg tablet (Paxil) 10 mg PO DAILY 01/15/21 [History Last Taken Unknown] quetiapine 25 mg tablet (Seroquel) 25 mg PO DAILY 01/15/21 [History Last Taken Unknown] cephalexin 500 mg capsule 500 mg PO Q12 post-operative 3 days #6 CAPSULES 05/12/21 [Rx Last Taken Unknown] oxycodone-acetaminophen 5 mg-325 mg tablet (Percocet) 1 tab PO Q8H PRN pain 3 days #10 tabs 05/12/21 [Rx Last Taken Unknown] doxepin 10 mg capsule 10 mg PO DAILY PRN anxiety 06/01/23 [History Last Taken Unknown] levothyroxine 50 mcg tablet 50 mcg PO DAILY 06/01/23 [History Last Taken Unknown] Allergy/AdvReac Type Severity Reaction Status Date / Time valacyclovir [From Valtrex] Allergy Intermediate Rash Verified 05/12/21 09:17 Family History Mother Breast cancer Sister Colon cancer Breast cancer Father Parkinsons Heart disease Myocardial infarction Other Bladder cancer Brain cancer Surgical History History of bladder surgery History of lumpectomy of left breast Hx of vein stripping Social History household members: none current occupational status: retired Smoking Status: Never smoker alcohol intake: never substance use type: does not use what type of physical activity do you participate in: walking frequency: 3-4 times per week seatbelt use: always do you feel safe at home: Yes additional social history: ROS Review of Systems ROS Unobtainable: due to mental condition Vital Signs Vital Signs Vital Signs: 06/01/23 19:16 06/01/23 19:24 06/01/23 19:24 Temperature 98 F 95.6 F L Temperature Source Temporal Temporal Pulse Rate 60 Respiratory Rate 18 Blood Pressure 132/71 H Blood Pressure Mean 91 Pulse Ox 90 95 Oxygen Delivery Method Room Air Nasal Cannula Oxygen Flow Rate (L/min) 2 06/01/23 19:42 06/01/23 19:54 06/01/23 20:24 Temperature Temperature Source Pulse Rate 60 58 L Respiratory Rate 18 17 Blood Pressure 145/73 H 124/83 H Blood Pressure Mean 97 96 Pulse Ox 99 99 99 Oxygen Delivery Method Nasal Cannula Nasal Cannula Nasal Cannula Oxygen Flow Rate (L/min) 2 2 2 Weight Weight: 176 lb Body Mass Index (BMI) 31.1 Physical Exam Narrative Physical Examination: General: Awake, alert, oriented to self but does have underlying significant dementia, can have some discussion but chronically has disorientation per discussion with family but is been worse over the last month, seated upright in the bed, no acute distress. Skin: Normal color, normal turgor, no icterus, no cyanosis except occasional staged ecchymoses, abrasion. HEENT: AT/NC, EOMI, PERRLA, mildly dry MM, no carotid bruits or JVD noted. Lungs: Mildly diminished, greater bases, appropriate effort, no rales, ronchi or wheezing. Heart: Regular rate and rhythm; no gallop, rub audible. Abdomen: Soft, obese, NTTP, ND, mildly hyperactive BS, no obvious evidence of HSM. Extremities: No cyanosis, clubbing, or edema. Neurological: Patient awake, alert, oriented x as noted, cognitive function decreased baseline secondary to underlying dementia but has been worse over the last month per discussion with family present; pupils equally reactive to light and accommodation, cranial nerves grossly normal but does have mild flattening of the nasolabial fold on the left side however with smiling this corrects, movi ng all 4 extremities, finger-nose and [id number] appropriate, equivocal Babinski, sensation intact, strength moderately to severely globally decreased secondary to underlying comorbidities but no focal deficit. Psychiatric: Affect appears flat, fatigued, no acute evidence of depressive or anxiety feelings. Results Lab / Micro Data 06/01/23 19:07 06/01/23 19:07 Labs: Laboratory Results - last 24 hr 06/01/23 19:07: WBC 8.4, RBC 4.94, Hgb 14.3, Hct 45.0, MCV 91.1, MCH 28.9, MCHC 31.8 L, RDW Std Deviation 43.1, RDW Coeff of Daria 12.9, Plt Count 238, MPV 8.7, Immature Gran % (Auto) 2.100 H, Neut % (Auto) 39.5 L, Lymph % (Auto) 44.9 H, [place] % (Auto) 9.0, Eos % (Auto) 3.7, Baso % (Auto) 0.8, Absolute Neuts (auto) 3.3, Absolute Lymphs (auto) 3.79, Nucleated RBC % 0, PT 12.4, INR 0.9, APTT 35.7, Sodium 138, Potassium 3.6, Chloride 106, Carbon Dioxide 29.0, Anion Gap 3 L, BUN 13, Creatinine 0.82, Estim Creat Clear Calc 54.74, Est GFR (MDRD) Af Amer 86, Est GFR (MDRD) Non-Af 71, BUN/Creatinine Ratio 15.8, Glucose 162 H, Calcium 9.6, Troponin I High Sens 6 Imaging Radiology Impression Brain CT 06/01/23 19:08 IMPRESSION: Mild periventricular white matter ischemic changes. No mass or acute bleed.. If concern for acute infarct MRI recommended Electronically Signed: Morales Topete MD at 19:28 EST , ADDENDUM: 06/01/23 193 IMPRESSION: Mild periventricular white matter ischemic changes. No mass or acute bleed.. If concern for acute infarct MRI recommended N.B. : The above Results were Read Back by Morales Topete MD to Andrés Acuña MD, and understanding confirmed on 06/01/2023 19:29:49 (ET). Electronically Signed: Morales Topete MD at 19:28 EST , ADDENDUM: 06/01/23 194 IMPRESSION: Mild periventricular white matter ischemic changes. No mass or acute bleed.. If concern for acute infarct MRI recommended N.B. : The above Results were Read Back by Mroales Topete MD to Andrés Acuña MD, and understanding confirmed on 06/01/2023 19:38:11 (ET). Electronically Signed: Morales Topete MD at 19:28 EST , Head/Neck CTA 06/01/23 19:15 IMPRESSION: Mild atherosclerotic changes of the head and neck. No evidence for hemodynamically significant stenosis or major vessel occlusion Electronically Signed: Morales Topete MD at 19:45 EST , ADDENDUM: 06/01/231951 IMPRESSION: Mild atherosclerotic changes of the head and neck. No evidence for hemodynamically significant stenosis or major vessel occlusion N.B. : The above Results were Read Back by Morales Topete MD to Andrés Acuña MD, and understanding confirmed on 06/01/2023 19:46:01 (ET). Electronically Signed: Morales Topete MD at 19:45 EST , Chest X-Ray 06/01/23 20:18 IMPRESSION: No acute cardiopulmonary pathology Electronically Signed: Morales Topete MD at 20:48 EST , Assessment & Plan Assessment/Plan (1) TIA (transient ischemic attack): PLAN: Plan The patient is an 82 y/o F residing in [facility]: Hypothyroidism, Anxiety and Depression, Obesity, Hx VTE (DVT), Hx L Breast Ductal CA, Hx bladder neoplasm of unclear specific significance, HLD, Dementia unclear type with unclear behavioral disturbance history who presents to the [facility] ED on 06/01/23 with history of onset slurred speech and dizziness which began after she sat down for dinner with symptoms starting at approximately 6:30 PM with upon EMS arrival noted left facial droop however on route her symptoms drastically improved. #1. Questionable syncope versus TIA/CVA versus possible seizure activity with transient dysarthria, facial droop, increased confusion however some concern for stiffening with syncopal event following: Will admit to PCU, will obtain MRI Brain, ECHO, will obtain EEG to be cautious given neurology concerns, PT/OT/Speech/Nutrition evaluation per protocol. Will allow permissive HTN, maintain on asa, statin w/ AM FLP, fall precautions. Mag, TSH, FLP, HgbA1c requested. Maintain on fall and aspiration precautions. Will continue ED initiated Neurology consultation. #2. Acute Hypoxia, mild, unclear etiology: CXR without acute findings, family notes intermittent wheezing through the past year, will add ATC budesonide, PRN albuterol and obtain PA and Lateral in the AM to be cautious. #3. Elevated BP without hypertensive diagnosis: Will continue permissive hypertension per stroke protocol with as needed agents per stroke protocol. #4. Hyperglycemia: Admission glucose 162, A1c pending per stroke protocol as n oted. If consistent with diabetes will transition to ADA diet with Accu-Cheks with insulin sliding scale. Nutrition consulted also per stroke protocol. #5. Dementia unclear type with unclear behavioral disturbance history, potentially progressing: Complicates presentation, continue patient home donepezil home regimen, maintain on fall and aspiration precautions, therapies as well as case management consulted as noted. #6. Anxiety and depression: We will continue patient home doxepin, low-dose Seroquel, paroxetine. #7. 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 Patient does have chronic LUE paresthesias and some weakness following her surgery and interventions of note. #8. History bladder neoplasm of unclear significance: Noted in chart history, uncertain exact significance of the bladder neoplasm, s/p 05/12/21 cystoscopy with bladder biopsy and fulguration, encourage continued outpatient follow-up with urology as previously arranged. #9. Hypothyroidism: Continue home levothyroxine regimen, TSH pending. #10. Hyperlipidemia: Continue home statin regimen. AM FLP. #11. Obesity: Weight loss and lifestyle changes encouraged. #12. History VTE: Chart reported history of previous DVT, will continue chemoprophylaxis as noted. #13. DVT prophylaxis: Lovenox. #14. CODE status: Patient DEREK is her daughter who is present and living will is currently in place. Discussed CODE status at length including difference between FULL code, DNR-CCA and DNR-CC status. Following discussions about the differences in these status, requested DNR-CCA, no intubation status. Advanced Care Planning Face to Face Time: 16 minutes. Charges/Coding Visit Charges Inpatient E&M: 59364 Init Hosp L3 Procedures Hospitalists Procedures: 96653 Advncd Care Plan 30 Min
--- NOTE | 2023-06-01 21:52 | ECHOD_ITS ---
Reason For Study: TIA/CVA Procedure This was a 2D Doppler, Color Flow transthoracic echocardiogram. Exam performed portable in patient room. Left Ventricle Normal LV size. Left ventricular systolic function is normal. The estimated ejection fraction is 65 %. No regional wall motion abnormalities noted. Right Ventricle Normal RV size. Normal systolic function. Atria Normal left atrium. Normal right atrium. Bubble contrast study negative for right to left interatrial shunt. Mitral Valve Normal mitral valve. Tricuspid Valve Normal tricuspid valve. Aortic Valve Normal aortic valve. Trisinus/trileaflet aortic valve. Pulmonic Valve Normal pulmonic valve. Great Vessels Normal aortic root. The pulmonary artery is normal size. Normal inferior vena cava. Pericardium/Pleural No pericardial effusion. Medication Performed a rapid injection of agitated mix of 9 cc saline and 1cc air to assess for atrial septal defect. MMode/2D Measurements & Calculations LVIDd: 4.0 cm IVSd: 1.1 cm Ao root diam: 3.3 cm LVIDs: 1.9 cm LVPWd: 1.1 cm RVDd: 2.8 cm FS: 52.2 % LAV(MOD-bp): 30.5 ml LVAd ap4: 19.9 cm2 LVAd ap2: 18.0 cm2 LAV(MOD-bp) Indexed: 16.7 ml/m2 LVLd ap4: 6.7 cm LVLd ap2: 6.2 cm LAV(MOD-sp2): 24.1 ml EDV(MOD-sp4): 50.6 ml EDV(MOD-sp2): 45.5 ml LAV(MOD-sp4): 36.6 ml EDV(sp4-el): 50.4 ml EDV(sp2-el): 44.2 ml LVAs ap4: 9.5 cm2 LVAs ap2: 8.1 cm2 LVLs ap4: 5.8 cm LVLs ap2: 5.5 cm ESV(MOD-sp4): 14.1 ml ESV(MOD-sp2): 11.1 ml ESV(sp4-el): 13.1 ml ESV(sp2-el): 10.1 ml EF(MOD-sp4): 72.2 % EF(MOD-sp2): 75.5 % EF(sp4-el): 74.0 % SV(MOD-sp4): 36.5 ml SV(MOD-sp2): 34.4 ml SV(sp4-el): 37.3 ml LA A4 area: 14.7 cm2 LA dimension(2D): 3.1 cm RA A4 area: 10.7 cm2 Time Measurements MV dec time: 0.26 sec Doppler Measurements & Calculations MV E max manny: 66.1 cm/sec Lat Peak E' Manny: 8.8 cm/sec Med Peak E' Manny: 6.5 cm/sec MV A max manny: 99.7 cm/sec E/E' lat: 7.5 E/E' med: 10.1 MV E/A: 0.66 Ao V2 max: 142.7 cm/sec LV V1 max: 112.9 cm/sec MV dec slope: 251.4 cm/sec2 Ao max P.1 mmHg LV V1 max P.1 mmHg PA V2 max: 89.9 cm/sec ECHO/Echo Complete Interpretation Summary Normal LV size. Left ventricular systolic function is normal. The estimated ejection fraction is 65 %. Bubble contrast study negative for right to left interatrial shunt. Ordering Physician: Haven Watson Referring Physician: Adrienne Cruz M.D. Performed By: Breanne Mayes RDCS
[2023-06-01 22:14] LABS: Magnesium 2.3 mg/dL (1.6-2.6)
[2023-06-01] MEDS: Budesonide Respules 0.5 MG/2 ML AMPUL.NEB. INHALATION (22:52)
[2023-06-01] MEDS: Atorvastatin Calcium 20 MG Tablet PO (23:04)
[2023-06-01] MEDS: 0.9% Normal Saline (1000mL) 1,000 ML 100 ML IV (23:05)
[2023-06-02 05:33] VITALS: BMI 30.2
[2023-06-02] MEDS: Levothyroxine 50 MCG Tablet PO (05:49)
[2023-06-02 06:07] VITALS: BP 155/77; PULSE 61; RESP 16; TEMP 37.1; O2SAT 93
[2023-06-02 06:21] LABS: Absolute Lymphocyte Count 1.58 X10^3/uL (0.83-4.51); Absolute Neutrophil Count 6.6 X10^3/uL (2.0-7.7); Basophil# 0.03 X10^3/uL; Basophil% 0.3 % (0-1); Eosinophil# 0.04 X10^3/uL; Eosinophils% 0.4 % (0-5); Hematocrit 42.2 % (37-47); Hemoglobin 13.7 g/dL (12.0-15.0); Lymphocyte # 1.58 X10^3/ul (0.83-4.51); Lymphocyte % 17.7 % (19-41); Mean Corp Hgb Conc 32.5 g/dL (32-36); Mean Corpuscular Hgb 29.8 pg (27.0-32.0); Mean Corpuscular Volume 91.9 fL (81-99); Monocyte# 0.68 X10^3/uL; Monocyte% 7.6 % (0-10); NRBC Flagged by Analyzer 0 % (0-5); Neutrophil # 6.57 X10^3/uL (2.7-7.7); Neutrophil % 73.7 % (47-70); Platelet Count 254 K/mm3 (150-450); RBC Distribution Width CV 12.8 % (11.6-14.6); RBC Distribution Width SD 43.2 fl (35.1-43.9); Red Blood Count 4.59 M/mm3 (4.2-5.4); White Blood Count 8.9 K/mm3 (4.4-11.0)
[2023-06-02 06:50] VITALS: PULSE 70; RESP 16; O2SAT 93
[2023-06-02] MEDS: Budesonide Respules 0.5 MG/2 ML AMPUL.NEB. INHALATION (06:50)
[2023-06-02 07:02] LABS: AST(SGOT) 98 U/L (15-37); Alanine Aminotransfer ALT/SGPT 178 U/L (13-56); Albumin, Serum 3.2 g/dL (3.2-5.0); Alkaline Phosphatase 158 U/L (45-117); Anion Gap 3 (5-15); BUN 12 mg/dL (7-18); BUN/Creat Ratio 15.9 RATIO (10-20); Calcium,Total 8.6 mg/dL (8.5-10.1); Chloride 108 mmol/L (98-107); Cholesterol 225 mg/dL (200); Creatinine, Serum 0.75 mg/dL (0.55-1.02); EST Glomerular Filtration Rate 79 mL/min (>60); Est Glom Filt Rate - Afr Amer 95 mL/min (>60); Estimated Creatinine Clearance 57.32 ml/min; Globulin 3.2 g/dL (2.2-4.2); Glucose 102 mg/dL (74-106); High Density Lipoprotein 42 mg/dL; Protein, Total 6.4 g/dL (6.4-8.2); Sodium Level 138 mmol/L (136-145); Triglycerides 169 mg/dL; Very Low Density Lipoprotein 34 mg/dL (5-40)
--- NOTE | 2023-06-02 07:30 | RAD_ITS ---
STUDY: X-RAY CHEST REASON FOR EXAM: Female, 82 years old. Dyspnea, wheezing TECHNIQUE: Frontal and lateral views of the chest. COMPARISON: 06/01/2023 FINDINGS: Continued elevation of the right hemidiaphragm. Lungs are clear. No infiltrate or effusion. There is no demonstrated pleural abnormality. Normal size heart. Normal mediastinum and randy. Normal visualized pulmonary arteries. There is atherosclerotic calcification of the aortic arch with tortuosity. Normal visualized thoracic spine. Normal visualized ribs, clavicles, and shoulders. There is no demonstrated abnormality of the visualized soft tissue structures of the upper abdomen. RAD/Chest PA and Lateral IMPRESSION: No definite acute or significant abnormality seen. Electronically Signed: Ray Aguilar MD at 18:11 EST ,
--- NOTE | 2023-06-02 07:44 | PN.HOSP_ITS ---
Reason for Visit Reason for Visit: Diagnoses Transient cerebral ischemic attack, unspecified (06/01/23) Objective Data Objective Data Vital Signs: Vital Signs Temp Pulse Resp BP Pulse Ox O2 Del Method O2 Flow Rate 98.7 F 61 16 155/77 H 93 Room Air 2 06/02/23 06:07 06/02/23 06:07 06/02/23 06:07 06/02/23 06:07 06/02/23 06:07 06/02/23 06:07 06/01/23 20:54 Oxygen Flow Rate (L/min) 2 Oxygen Delivery Method Room Air Weight: 175 lb 14.862 oz Body Mass Index (BMI) 30.2 Intake & Output: Intake and Output for Last 24 Hours 05/31/23 06/01/23 06/02/23 23:59 23:59 23:59 Intake Total 0 / 0 240 / 240 Balance 0 / 0 240 / 240 Lab / Micro Data 06/02/23 05:50 06/02/23 05:50 Labs: Laboratory Results - last 24 hr 06/01/23 19:07: WBC 8.4, RBC 4.94, Hgb 14.3, Hct 45.0, MCV 91.1, MCH 28.9, MCHC 31.8 L, RDW Std Deviation 43.1, RDW Coeff of Daria 12.9, Plt Count 238, MPV 8.7, Immature Gran % (Auto) 2.100 H, Neut % (Auto) 39.5 L, Lymph % (Auto) 44.9 H, [place] % (Auto) 9.0, Eos % (Auto) 3.7, Baso % (Auto) 0.8, Absolute Neuts (auto) 3.3, Absolute Lymphs (auto) 3.79, Nucleated RBC % 0, PT 12.4, INR 0.9, APTT 35.7, Sodium 138, Potassium 3.6, Chloride 106, Carbon Dioxide 29.0, Anion Gap 3 L, BUN 13, Creatinine 0.82, Estim Creat Clear Calc 54.74, Est GFR (MDRD) Af Amer 86, Est GFR (MDRD) Non-Af 71, BUN/Creatinine Ratio 15.8, Glucose 162 H, Calcium 9.6, Magnesium 2.3, Troponin I High Sens 6 06/02/23 05:50: WBC 8.9, RBC 4.59, Hgb 13.7, Hct 42.2, MCV 91.9, MCH 29.8, MCHC 32.5, RDW Std Deviation 43.2, RDW Coeff of Daria 12.8, Plt Count 254, MPV 9.0, Immature Gran % (Auto) 0.300, Neut % (Auto) 73.7 H, Lymph % (Auto) 17.7 L, [place] % (Auto) 7.6, Eos % (Auto) 0.4, Baso % (Auto) 0.3, Absolute Neuts (auto) 6.6, Absolute Lymphs (auto) 1.58, Nucleated RBC % 0, Sodium 138, Potassium 4.0, Chloride 108 H, Carbon Dioxide 27.0, Anion Gap 3 L, BUN 12, Creatinine 0.75, Estim Creat Clear Calc 57.32, Est GFR (MDRD) Af Amer 95, Est GFR (MDRD) Non-Af 79, BUN/Creatinine Ratio 15.9, Glucose 102, Calcium 8.6, Total Bilirubin 0.90, AST 98 H, ALT 178 H, Alkaline Phosphatase 158 H, Total Protein 6.4, Albumin 3.2, Globulin 3.2, Albumin/Globulin Ratio 1.0, Triglycerides 169, Cholesterol 225 H, LDL Cholesterol 149 H, VLDL Cholesterol 34, HDL Cholesterol 42, TSH 1.20 Radiography Diagnostic Testing: Radiology Impression Brain CT 06/01/23 19:08 IMPRESSION: Mild periventricular white matter ischemic changes. No mass or acute bleed.. If concern for acute infarct MRI recommended Electronically Signed: Morales Topete MD at 19:28 EST , ADDENDUM: 06/01/23 193 IMPRESSION: Mild periventricular white matter ischemic changes. No mass or acute bleed.. If concern for acute infarct MRI recommended N.B. : The above Results were Read Back by Morales Topete MD to Andrés Acuña MD, and understanding confirmed on 06/01/2023 19:29:49 (ET). Electronically Signed: Morales Topete MD at 19:28 EST , ADDENDUM: 06/01/23 194 IMPRESSION: Mild periventricular white matter ischemic changes. No mass or acute bleed.. If concern for acute infarct MRI recommended N.B. : The above Results were Read Back by Morales Topete MD to Andrés Acuña MD, and understanding confirmed on 06/01/2023 19:38:11 (ET). Electronically Signed: Morales Topete MD at 19:28 EST , Head/Neck CTA 06/01/23 19:15 IMPRESSION: Mild atherosclerotic changes of the head and neck. No evidence for hemodynamically significant stenosis or major vessel occlusion Electronically Signed: Morales Topete MD at 19:45 EST Reading Location ID and State: [facility] / [place] Tel [phone], Service support , ADDENDUM: 06/01/231951 IMPRESSION: Mild atherosclerotic changes of the head and neck. No evidence for hemodynamically significant stenosis or major vessel occlusion N.B. : The above Results were Read Back by Morales Topete MD to nAdrés Acuña MD, and understanding confirmed on 06/01/2023 19:46:01 (ET). Electronically Signed: Morales Topete MD at 19:45 EST , Chest X-Ray 06/01/23 20:18 IMPRESSION: No acute cardiopulmonary pathology Electronically Signed: Morales Topete MD at 20:48 EST , Assessment & Plan Assessment/Plan (1) TIA (transient ischemic attack): PLAN: Plan The patient is an 82 y/o F was admitted from assisted living [facility] for evaluation of dizziness after starting dinner associated with nausea and more confusion than her baseline dementia. She fell to the right. Her symptoms improved while she was in ED but apparently noted to have left facial droop, slurred speech, diaphoretic and more stiff before slumping/fall over the right. She never had a stroke. #1. Possible syncope versus seizure versus TIA: Patient is admitted in PCU. Patient was evaluated by [facility] neurologist after stroke alert was called. PT, OT, speech therapy/swallow evaluation and management, nursing NIH stroke scale, BP and glucose monitoring and control as per stroke protocol. TSH, A1c fasting lipid profile tomorrow AM. MRI brain and 2D echo with bubble contrast study ordered. /Nutrition evaluation per protocol. Will allow permissive HTN, maintain on asa, statin w/ AM FLP, fall precautions. Mag, TSH, FLP, HgbA1c requested. Maintain on fall and aspiration precautions. Will continue ED initiated Neurology consultation. #2. Acute Hypoxia, mild, unclear etiology: CXR without acute findings, family notes intermittent wheezing through the past year, will add ATC budesonide, PRN albuterol and obtain PA and Lateral in the AM to be cautious. #3. Elevated BP without hypertensive diagnosis: Will continue permissive hypertension per stroke protocol with as needed agents per stroke protocol. #4. Hyperglycemia: Admission glucose 162, A1c pending per stroke protocol as noted. If consistent with diabetes will transition to ADA diet with Accu-Cheks with insulin sliding scale. Nutrition consulted also per stroke protocol. #5. Dementia unclear type with unclear behavioral disturbance history, potentially progressing: Complicates presentation, continue patient home donepezil home regimen, maintain on fall and aspiration precautions, therapies as well as case management consulted as noted. #6. Anxiety and depression: We will continue patient home doxepin, low-dose Seroquel, paroxetine. #7. 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 Patient does have chronic LUE paresthesias and some weakness following her surgery and interventions of note. #8. History bladder neoplasm of unclear significance: Noted in chart history, uncertain exact significance of the bladder neoplasm, s/p 05/12/21 cystoscopy with bladder biopsy and fulguration, encourage continued outpatient follow-up with urology as previously arranged. #9. Hypothyroidism: Continue home levothyroxine regimen, TSH pending. #10. Hyperlipidemia: Continue home statin regimen. AM FLP. #11. Obesity: Weight loss and lifestyle changes encouraged. #12. History VTE: Chart reported history of previous DVT, will continue chemoprophylaxis as noted. #13. DVT prophylaxis: Lovenox. #14. CODE status: Patient DEREK is her daughter who is present and living will is currently in place. Discussed CODE status at length including difference between FULL code, DNR-CCA and DNR-CC status. Following discussions about the differences in these status, requested DNR-CCA, no intubation status. Advanced Care Planning Face to Face Time: 16 minutes.
--- NOTE | 2023-06-02 09:10 | NURSING ---
NIHSS completed late due to patient currently having EEG done. NIHSS will be completed as soon as EEG completed.
[2023-06-02 09:30] VITALS: BP 150/68; PULSE 73; RESP 16; TEMP 36.7; O2SAT 94
--- NOTE | 2023-06-02 10:00 | MRI_ITS ---
EXAM: MR HEAD WITHOUT INTRAVENOUS CONTRAST CLINICAL INDICATION: CVA, confusion TECHNIQUE: Multiplanar and multisequence MR images of the brain were obtained without intravenous contrast. COMPARISON: CT head without contrast and CTA head and neck with contrast 06/01/2023. FINDINGS: BRAIN AND EXTRA-AXIAL SPACES: T2 FLAIR hyperintensity foci in the white matter of both cerebral hemispheres are chronic white matter ischemic changes. Small T2 FLAIR hyperintensity in the right central pontine tegmentum is also chronic ischemic change. No intra- or extra-axial hemorrhage. No intracranial mass or mass effect. Posterior fossa structures are unremarkable. Ventricles are appropriate for age. No hydrocephalus. Basal cisterns are patent. No diffusion restriction to suspect acute or subacute ischemic infarct. SELLA: Unremarkable. Normal sella turcica, pituitary gland, infundibular stalk, optic chiasm and hypothalamus. AUDITORY SYSTEM: Unremarkable. The internal auditory canals are patent. BONES/JOINTS: Unremarkable. No discrete lytic or blastic abnormalities. SINUSES: Unremarkable as visualized. Clear. MASTOID AIR CELLS: Unremarkable as visualized. Clear. ORBITS: Unremarkable as visualized. Both globes, extraocular muscles, optic nerves and retrobulbar fat appear unremarkable. VASCULATURE: Unremarkable as visualized. Normal flow voids in the major intracranial circulation. MRI/Brain without Contrast IMPRESSION: 1. No MRI evidence of acute or subacute ischemic infarct old ischemic infarct. 2. Chronic white matter ischemic changes in both cerebral hemispheres and one in the right central pontine tegmentum. Electronically Signed: Andrés Chiang MD at 11:43 EST ,
[2023-06-02] MEDS: Donepezil HCl 10 MG Tablet PO (10:45)
[2023-06-02] MEDS: PARoxetine 10 MG Tablet PO (10:45)
[2023-06-02] MEDS: Aspirin 81 MG TAB.CHEW PO (10:45)
[2023-06-02] MEDS: QUEtiapine 25 MG Tablet PO (10:45)
[2023-06-02] MEDS: 0.9% Saline Lock 10 ML Syringe IV (10:46)
[2023-06-02] MEDS: Enoxaparin 40 MG/0.4 ML Syringe SC (10:47)
--- NOTE | 2023-06-02 12:03 | DCINST_ITS ---
Discharge Instructions Diet Discharge Diet: 2000 mg Sodium Diet Activity Discharge Activity: Return to Normal Activity Weight Bearing Status: Weight bearing as tolerated Dressing / Incision Call your doctor if you observe: Fever of 101 or Higher, Coldness, Increased Pain, Numbness or Tingling, Change in Color, Inability to urinate, Inability to have a bowel movement, Using more than 1 pad per hour, Shortness of breath, Dizziness, Fainting spells, Swelling in the ankles, Chest pain, Prolonged hiccupping, Increased palpitations (irregular heartbeat) and Calf discomfort Follow Up Care When: IN 2 WEEKS Test Results: Test results from this visit will be discussed in further detail at your follow- up appointment, if applicable. Discharge Plan Admission Admit Date/Time: 06/01/23 20:56 Primary Reason for Your Visit: Syncope/TIA Attending Provider: Maxime Dale Primary Care Provider: Adrienne Cruz Consulting Providers: Nithin Connell; Leana Mendoza; Jaclyn Chin; Yuko Gerber; Samson Terry; Marisol Fagan; Mari Martin; Lars Purcell; Belkis Murphy; Freedom Coker; Tenzin Albarado; Nathaniel George; Ysabel Vasquez; Amanda Vergara; Mk Beebe; Yulissa Brewer; Parker Bolton; Rosibel Drake; Brennon Dennis; Jillian Willoughby; Eder Bowden; Kris Nobles; HECTOR ALVES; Shakir Hernandez; vAa Cooper; Haven Watson Discharge Orders/Prescriptions Prescriptions: New rosuvastatin 20 mg tablet 20 mg PO QHS Qty: 30 3RF Continued quetiapine [Seroquel] 25 mg tablet 25 mg PO DAILY paroxetine HCl [Paxil] 10 mg tablet 10 mg PO DAILY donepezil [Aricept] 10 mg tablet 10 mg PO DAILY levothyroxine 50 mcg tablet 50 mcg PO DAILY doxepin 10 mg capsule 10 mg PO DAILY PRN (Reason: anxiety) Discontinued rosuvastatin 10 MG tablet 10 mg PO QHS Referrals / Follow Up: Adrienne Cruz MD [Primary Care Provider] - Within 2 Weeks Andrei Berkowitz MD [Non-Staff -Ordering Privileges] - Within 1 Month (For suspicion of possible syncope/TIA/seizure) Disposition Disposition (needs filled in before D/C Order can be placed): NonSkilled [facility]
--- NOTE | 2023-06-02 12:40 | CASEMGMT ---
Discharge Planning Updates faxed to Julien Diaz. Ellen Madrigal, Discharge Planning Asst.
--- NOTE | 2023-06-02 12:58 | PCM.DC.SUM ---
Providers Date of Admission: 06/01/23 Date of Discharge: 06/02/23 Primary Care Physician: Dr. Adrienne Cruz MD Consultations 06/01/23 21:52 Consult: Tele-Neurology Routine Consulting Provider: [facility] Reason for Consult: Acute Ischemic Stroke/TIA EMERGENT Consult: No MD Notified: Yes Date Notified: 06/01/23 Time Notified: 20:59 Method of Notification: ED Physician Initiated Nursing Unit Staff Notify [facility] of Tele-Neurology Consult: Yes Reason For Visit: TIA/CVA, ? SYNCOPE, ? SEIZURE Diagnosis Discharge Diagnosis (1) TIA (transient ischemic attack): Status: Acute Code(s): G45.9 - Transient cerebral ischemic attack, unspecified Plan The patient is an 82 y/o F was admitted from [facility] for evaluation of dizziness after starting dinner associated with nausea and more confusion than her baseline dementia. She fell to the right. Her symptoms improved while she was in ED but apparently noted to have left facial droop, slurred speech, diaphoretic and more stiff before slumping/fall over the right. She never had a stroke. #1. Possible syncope versus seizure versus TIA: Patient is admitted in PCU. Patient was evaluated by [facility] neurologist after stroke alert was called. PT, OT, speech therapy/swallow evaluation and management, nursing NIH stroke scale, BP and glucose monitoring and control as per stroke protocol. TSH, A1c fasting lipid profile tomorrow AM. MRI brain and 2D echo with bubble contrast study ordered. 06/02: TSH 1.2. LDL elevated 149, total cholesterol 225, HDL 42. A1c 6.1. Patient has elevated ALT and AST since March 2023. Alkaline phosphatase 158. Patient has been on rosuvastatin 10 mg daily increased to 20 mg daily because of elevated LDL. Liver chemistry has been elevated as mentioned above and does not seem acute or new but needs to be followed as an outpatient. Her evaluation seem more like syncope rather than TIA. EEG pending. [facility] neurologist said that patient does not need further neurology workup. She denies any prior history of seizure disorder, chronic headache or stroke. 2D echo shows normal left atrium. Bubble contrast study negative for [id number] interatrial shunt. #2. Acute Hypoxia, mild, unclear etiology: CXR without acute findings, hypoxia resolved. Pulse ox 94% on room air. #3. Elevated BP without hypertensive diagnosis: continue permissive hypertension per stroke protocol with as needed agents per stroke protocol. BP on acceptable limit 150/68 #4. Hyperglycemia: Admission glucose 162, A1c 6.1 suggestive of prediabetes. #5. Dementia unclear type with unclear behavioral disturbance history, potentially progressing: Complicates presentation, continue patient home donepezil home regimen, maintain on fall and aspiration precautions, therapies as well as case management consulted as noted. #6. Anxiety and depression: We will continue patient home doxepin, low-dose Seroquel, paroxetine. #7. 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 Patient does have chronic LUE paresthesias and some weakness following her surgery and interventions of note. #8. History bladder neoplasm of unclear significance: Noted in chart history, uncertain exact significance of the bladder neoplasm, s/p 05/12/21 cystoscopy with bladder biopsy and fulguration, encourage continued outpatient follow-up with urology as previously arranged. #9. Hypothyroidism: Continue home levothyroxine regimen, TSH normal. #10. Hyperlipidemia: Continue home statin regimen. As mentioned above #11. Obesity: Weight loss and lifestyle changes encouraged. #12. History VTE: Chart reported history of previous DVT, will continue chemoprophylaxis as noted. #13. DVT prophylaxis: Lovenox. #14. CODE status: Patient DEREK is her daughter who is present and living will is currently in place. Discussed CODE status at length including difference between FULL code, DNR-CCA and DNR-CC status. Following discussions about the differences in these status, requested DNR-CCA, no intubation status. Advanced Care Planning Face to Face Time: 16 minutes. Discharge medication reconciliation done. Discharge follow-up instructions completed. Discharge process discussed with the patient and all questions were answered to patient's satisfaction. Follow with PCP in 1 to 2 weeks Total time spent, exact 35 minutes on discharge meds reconciliation, examination, coordination of care with nurses and ancillary staff, review of imaging and blood test and discussion with the patient on follow-up instructions. Medications at Discharge Home Medications donepezil 10 mg tablet (Aricept) 10 mg PO DAILY memory 01/15/21 paroxetine HCl 10 mg tablet (Paxil) 10 mg PO DAILY mental health 01/15/21 quetiapine 25 mg tablet (Seroquel) 25 mg PO DAILY sleep 01/15/21 doxepin 10 mg capsule 10 mg PO DAILY PRN anxiety 06/01/23 levothyroxine 50 mcg tablet 50 mcg PO DAILY thyroid 06/01/23 rosuvastatin 20 mg tablet 20 mg PO QHS #30 tabs 06/02/23 Physical Exam Narrative Seen and examined. Patient had dizziness/lightheadedness but denied vertigo. Admitted with mild confusion slurred speech and slump on the right side. Physical exam General: Alert, Oriented x3, Cooperative HEENT: Bilateral hard of hearing atraumatic, PERRLA, EOMI, Normocephalic Oral: No Gingival or Mucosal Lesions/ Ulcerations Neck: Supple, No JVD, Negative Carotid Bruits Chest wall/Lungs: Air entry diminished in bilateral lung bases. No crepitation/rhonchi Cardiovascular: Regular rate, Regular Rhythm, Normal S1, Normal S2, No M/G/R Abdomen: Bowel Sounds Present, Soft, Non Tender, Non-Distended : No dysuria. No renal angle tenderness. No suprapubic tenderness. Extremities: No edema, Capillary Refill Less than 3 Seconds Skin: No rashes, No breakdown Musculoskeletal: No Tenderness to Palpation of Joints or Extremities. Muscle strength 5/5 at major joints. Neurological: Cranial nerves II-XII grossly intact, DTR 2+/4. No acute focal neurological deficit. Heel-reardon/finger-nose test negative for incoordination. NIH stroke scale 0. Psych/Mental Status: Normal Affect, Appropriate. Weight / BMI Weight Weight: 175 lb 14.862 oz Body Mass Index (BMI) 30.2 ABG / Lab / Microbiology Data 06/02/23 05:50 06/02/23 05:50 Laboratory: Laboratory Results - last 24 hr 06/01/23 19:07: WBC 8.4, RBC 4.94, Hgb 14.3, Hct 45.0, MCV 91.1, MCH 28.9, MCHC 31.8 L, RDW Std Deviation 43.1, RDW Coeff of Daria 12.9, Plt Count 238, MPV 8.7, Immature Gran % (Auto) 2.100 H, Neut % (Auto) 39.5 L, Lymph % (Auto) 44.9 H, Bracken % (Auto) 9.0, Eos % (Auto) 3.7, Baso % (Auto) 0.8, Absolute Neuts (auto) 3.3, Absolute Lymphs (auto) 3.79, Nucleated RBC % 0, PT 12.4, INR 0.9, APTT 35.7, Sodium 138, Potassium 3.6, Chloride 106, Carbon Dioxide 29.0, Anion Gap 3 L, BUN 13, Creatinine 0.82, Estim Creat Clear Calc 54.74, Est GFR (MDRD) Af Amer 86, Est GFR (MDRD) Non-Af 71, BUN/Creatinine Ratio 15.8, Glucose 162 H, Calcium 9.6, Magnesium 2.3, Troponin I High Sens 6 06/02/23 05:50: WBC 8.9, RBC 4.59, Hgb 13.7, Hct 42.2, MCV 91.9, MCH 29.8, MCHC 32.5, RDW Std Deviation 43.2, RDW Coeff of Daria 12.8, Plt Count 254, MPV 9.0, Immature Gran % (Auto) 0.300, Neut % (Auto) 73.7 H, Lymph % (Auto) 17.7 L, Bracken % (Auto) 7.6, Eos % (Auto) 0.4, Baso % (Auto) 0.3, Absolute Neuts (auto) 6.6, Absolute Lymphs (auto) 1.58, Nucleated RBC % 0, Sodium 138, Potassium 4.0, Chloride 108 H, Carbon Dioxide 27.0, Anion Gap 3 L, BUN 12, Creatinine 0.75, Estim Creat Clear Calc 57.32, Est GFR (MDRD) Af Amer 95, Est GFR (MDRD) Non-Af 79, BUN/Creatinine Ratio 15.9, Glucose 102, Calcium 8.6, Total Bilirubin 0.90, AST 98 H, ALT 178 H, Alkaline Phosphatase 158 H, Total Protein 6.4, Albumin 3.2, Globulin 3.2, Albumin/Globulin Ratio 1.0, Triglycerides 169, Cholesterol 225 H, LDL Cholesterol 149 H, VLDL Cholesterol 34, HDL Cholesterol 42, TSH 1.20 Radiography Diagnostic Testing: Radiology Impression Brain CT 06/01/23 19:08 IMPRESSION: Mild periventricular white matter ischemic changes. No mass or acute bleed.. If concern for acute infarct MRI recommended Electronically Signed: Morales Topete MD at 19:28 EST , ADDENDUM: 06/01/23 1936 IMPRESSION: Mild periventricular white matter ischemic changes. No mass or acute bleed.. If concern for acute infarct MRI recommended N.B. : The above Results were Read Back by Morales Topete MD to Andrés Acuña MD, and understanding confirmed on 06/01/2023 19:29:49 (ET). Electronically Signed: Morales Topete MD at 19:28 EST , ADDENDUM: 06/01/23 194 IMPRESSION: Mild periventricular white matter ischemic changes. No mass or acute bleed.. If concern for acute infarct MRI recommended N.B. : The above Results were Read Back by Morales Topete MD to Andrés Acuña MD, and understanding confirmed on 06/01/2023 19:38:11 (ET). Electronically Signed: Morales Tpoete MD at 19:28 EST , Head/Neck CTA 06/01/23 19:15 IMPRESSION: Mild atherosclerotic changes of the head and neck. No evidence for hemodynamically significant stenosis or major vessel occlusion Electronically Signed: Morales Topete MD at 19:45 EST , ADDENDUM: 06/01/231951 IMPRESSION: Mild atherosclerotic changes of the head and neck. No evidence for hemodynamically significant stenosis or major vessel occlusion N.B. : The above Results were Read Back by Morales Topete MD to Andrés Acuña MD, and understanding confirmed on 06/01/2023 19:46:01 (ET). Electronically Signed: Morales Topete MD at 19:45 EST , Chest X-Ray 06/01/23 20:18 IMPRESSION: No acute cardiopulmonary pathology Electronically Signed: Morales Topete MD at 20:48 EST , Brain MRI 06/02/23 10:00 IMPRESSION: 1. No MRI evidence of acute or subacute ischemic infarct old ischemic infarct. 2. Chronic white matter ischemic changes in both cerebral hemispheres and one in the right central pontine tegmentum. Electronically Signed: Andrés Chiang MD at 11:43 EST , D/C Instructions Discharge Diet: 2000 mg Sodium Diet Weight Bearing Status: Weight bearing as tolerated Call your doctor if you observe: Fever of 101 or Higher, Coldness, Increased Pain, Numbness or Tingling, Change in Color, Inability to urinate, Inability to have a bowel movement, Using more than 1 pad per hour, Shortness of breath, Dizziness, Fainting spells, Swelling in the ankles, Chest pain, Prolonged hiccupping, Increased palpitations (irregular heartbeat) and Calf discomfort When: IN 2 WEEKS Meaningful Use Info Meaningful Use Diagnoses (Choose all that apply): None applicable Discharge Plan Admission Admit Date/Time: 06/01/23 20:56 Primary Reason for Your Visit: Syncope/TIA Attending Provider: Maxime Dale Primary Care Provider: Adrienne Cruz Consulting Providers: Nithin Connell; Leana Mendoza; Jaclyn Chin; Yuko Gerber; Samson Terry; Marislo Fagan; Mari Martin; Lars Purcell; Belkis Murphy; Freedom Coker; Tenzin Albarado; Nathaniel George; Ysabel Vasquez; Amanda Vergara; Mk Beebe; Yulissa Brewer; Parker Bolton; Rosibel Drake; Brennon Dennis; Jillian Willoughby; Eder Bowden; Kris Nobles; HECTOR ALVES; Shakir Hernandez; Ava Cooper; Haven Watson Discharge Orders/Prescriptions Prescriptions: New rosuvastatin 20 mg tablet 20 mg PO QHS Qty: 30 3RF Continued quetiapine [Seroquel] 25 mg tablet 25 mg PO DAILY paroxetine HCl [Paxil] 10 mg tablet 10 mg PO DAILY donepezil [Aricept] 10 mg tablet 10 mg PO DAILY levothyroxine 50 mcg tablet 50 mcg PO DAILY doxepin 10 mg capsule 10 mg PO DAILY PRN (Reason: anxiety) Discontinued rosuvastatin 10 MG tablet 10 mg PO QHS Referrals / Follow Up: Adrienne Cruz MD [Primary Care Provider] - Within 2 Weeks Andrei Bekrowitz MD [Non-Staff -Ordering Privileges] - Within 1 Month (For suspicion of possible syncope/TIA/seizure) Disposition Disposition (needs filled in before D/C Order can be placed): NonSkilled NH/Intermed Care Charges/Coding Visit Charges Inpatient E&M: 94564 Disch Hosp >30min
--- NOTE | 2023-06-02 13:19 | CASEMGMT ---
Discharge Planning Discharge instructions faxed to Julien Diaz. Ellen Madrigal, Discharge Planning Asst.
[2023-06-02 13:30] VITALS: BP 133/83; PULSE 73; RESP 17; TEMP 36.7; O2SAT 94
--- NOTE | 2023-06-02 13:44 | STROKE.CONS ---
Assessment and Plan: Stroke Assessment/Plan MIKAEL SON is a 82 F with acute encephalopathy with non-focal features. Neuroimaging is without evidence of stroke. No further neurovascular work up recommended. HPI Consult Data Date of Consult: 06/02/23 HPI Narrative HPI Narrative: MIKAEL SON is a 82 F with acute encephalopathy with non-focal features. Neuroimaging is without evidence of stroke. [facility] Medical History Bladder neoplasm of uncertain malignant potential Dementia DVT (deep venous thrombosis) High cholesterol History of basal cell cancer History of ductal carcinoma in situ of breast Hypercholesteremia Non-smoker Post-menopausal Skin cancer Wears dentures Wears glasses Home Medications donepezil 10 mg tablet (Aricept) 10 mg PO DAILY memory 01/15/21 [History Last Taken Unknown] paroxetine HCl 10 mg tablet (Paxil) 10 mg PO DAILY mental health 01/15/21 [History Last Taken Unknown] quetiapine 25 mg tablet (Seroquel) 25 mg PO DAILY sleep 01/15/21 [History Last Taken Unknown] doxepin 10 mg capsule 10 mg PO DAILY PRN anxiety 06/01/23 [History Last Taken Unknown] levothyroxine 50 mcg tablet 50 mcg PO DAILY thyroid 06/01/23 [History Last Taken Unknown] rosuvastatin 20 mg tablet 20 mg PO QHS #30 tabs 06/02/23 [Rx Last Taken Unknown] Allergy/AdvReac Type Severity Reaction Status Date / Time valacyclovir [From Valtrex] Allergy Intermediate Rash Verified 05/12/21 09:17 Family History Mother Breast cancer Sister Colon cancer Breast cancer Father Parkinsons Heart disease Myocardial infarction Other Bladder cancer Brain cancer Surgical History History of bladder surgery History of lumpectomy of left breast Hx of vein stripping Social History household members: none current occupational status: retired Smoking Status: Never smoker alcohol intake: never substance use type: does not use what type of physical activity do you participate in: walking frequency: 3-4 times per week seatbelt use: always do you feel safe at home: Yes additional social history: Vital Signs Vital Signs Vital Signs: 06/01/23 19:16 06/01/23 19:24 06/01/23 19:24 Temperature 98 F 95.6 F L Temperature Source Temporal Temporal Pulse Rate 60 Respiratory Rate 18 Respiratory Effort Respiratory Depth Respiratory Pattern Blood Pressure 132/71 H Blood Pressure [BP] Blood Pressure Mean 91 Blood Pressure Mean [BP] Blood Pressure Source Blood Pressure Source [BP] Blood Pressure Position Blood Pressure Position [BP] Blood Pressure Location Blood Pressure Location [BP] Pulse Ox 90 95 Oxygen Delivery Method Room Air Nasal Cannula Oxygen Flow Rate (L/min) 2 06/01/23 19:42 06/01/23 19:54 06/01/23 20:24 Temperature Temperature Source Pulse Rate 60 58 L Respiratory Rate 18 17 Respiratory Effort Respiratory Depth Respiratory Pattern Blood Pressure 145/73 H 124/83 H Blood Pressure [BP] Blood Pressure Mean 97 96 Blood Pressure Mean [BP] Blood Pressure Source Blood Pressure Source [BP] Blood Pressure Position Blood Pressure Position [BP] Blood Pressure Location Blood Pressure Location [BP] Pulse Ox 99 99 99 Oxygen Delivery Method Nasal Cannula Nasal Cannula Nasal Cannula Oxygen Flow Rate (L/min) 2 2 2 06/01/23 20:54 06/01/23 22:31 06/01/23 22:52 Temperature 97.5 F L Temperature Source Oral Pulse Rate 62 61 70 Respiratory Rate 16 16 18 Respiratory Effort Respiratory Depth Respiratory Pattern Normal Blood Pressure 122/70 H Blood Pressure [BP] 140/85 H Blood Pressure Mean 87 Blood Pressure Mean [BP] 103 Blood Pressure Source Blood Pressure Source [BP] Monitor Blood Pressure Position Blood Pressure Position [BP] Semi-Fowlers Blood Pressure Location Blood Pressure Location [BP] Right Arm Pulse Ox 99 93 Oxygen Delivery Method Nasal Cannula Room Air Oxygen Flow Rate (L/min) 2 06/01/23 22:52 06/01/23 22:52 06/02/23 06:07 Temperature 98.7 F Temperature Source Oral Pulse Rate 61 Respiratory Rate 20 H 16 Respiratory Effort Normal Non-Labored Respiratory Depth Shallow Respiratory Pattern Normal Blood Pressure 155/77 H Blood Pressure [BP] Blood Pressure Mean 103 Blood Pressure Mean [BP] Blood Pressure Source Monitor Blood Pressure Source [BP] Blood Pressure Position Semi-Fowlers Blood Pressure Position [BP] Blood Pressure Location Right Arm Blood Pressure Location [BP] Pulse Ox 93 93 93 Oxygen Delivery Method Room Air Room Air Room Air Oxygen Flow Rate (L/min) 06/02/23 06:50 06/02/23 06:50 06/02/23 09:30 Temperature 98.0 F Temperature Source Oral Pulse Rate 70 73 Respiratory Rate 16 16 Respiratory Effort Respiratory Depth Respiratory Pattern Normal Blood Pressure 150/68 H Blood Pressure [BP] Blood Pressure Mean 95 Blood Pressure Mean [BP] Blood Pressure Source Monitor Blood Pressure Source [BP] Blood Pressure Position Semi-Fowlers Blood Pressure Position [BP] Blood Pressure Location Right Arm Blood Pressure Location [BP] Pulse Ox 93 94 Oxygen Delivery Method Room Air Room Air Oxygen Flow Rate (L/min) Weight Weight: 79.8 kg Body Mass Index (BMI) 30.2 EEG Results Procedure Details EEG Procedure Details: MIKAEL SON is a 82 year old F with a past medical history of , who presents for evaluation of Electroencephalogram on DATE at TIME NIHSS NIHSS Nursing Documentation NIHSS Nursing Documentation: NIHSS: Ischemic Stroke/TIA Start: 06/01/23 21:52 Text: For PCU Patients: NIH and Neuro Check every 4 Status: Active hours and PRN Freq: [id number] Protocol: Activity Type Activity Date Activity User E-sign Co-sign Detail Recorded Client Recorded Date Recorded By Document 06/02/23 09:30 Desktop 06/02/23 09:53 06/02/23 09:30 NIH Stroke Scale [NIHSS] A score of 0 is normal or asymptomatic . Total possible score is 42. Inpatient: RN or Physician to activate a stroke alert for onset of new stroke symptoms or with NIHSS increase >/= 3 points. Following change in neurological status, NIHSS will be performed per physician order or more frequently PRN. -1a. Level of Consciousness Alert; keenly responsive -1b. LOC Questions Answers BOTH questions correctly. -1c. LOC Commands Performs both tasks correctly . -2. Best Gaze Normal -3. Visual No visual loss -4. Facial Palsy Normal symmetrical movements -5a. Left Arm No drift; arm holds 90 (or 45 ) degrees for full 10 seconds -5b. Right Arm No drift; arm holds 90 (or 45 ) degrees for full 10 seconds -6a. Left Leg No drift; leg holds 30-degree position for full 5 seconds -6b. Right Leg No drift; leg holds 30-degree position for full 5 seconds -7. Limb Ataxia Absent -8. Sensory Normal; no sensory loss -9. Best Language No aphasia; normal -10. Dysarthria Normal -11. Extinction and Inattention No abnormality -Total 0 Query Text:A score of 0 is normal or asymptomatic. Total possible score is 42 . ED: Notify Physician for NIHSS increase by > / = 3 points. Inpatient: RN or Physician to activate a stroke alert for NIHSS increase of > / = 3 points. Coma Scale [Assess] -Eye Opening Spontaneous -Motor Obeys Commands -Verbal Oriented [Total] -Coma Scale Total 15 Lab / Micro Data 06/02/23 05:50 06/02/23 05:50 Labs: Laboratory Results - last 24 hr 06/01/23 19:07: WBC 8.4, RBC 4.94, Hgb 14.3, Hct 45.0, MCV 91.1, MCH 28.9, MCHC 31.8 L, RDW Std Deviation 43.1, RDW Coeff of Daria 12.9, Plt Count 238, MPV 8.7, Immature Gran % (Auto) 2.100 H, Neut % (Auto) 39.5 L, Lymph % (Auto) 44.9 H, Saunders % (Auto) 9.0, Eos % (Auto) 3.7, Baso % (Auto) 0.8, Absolute Neuts (auto) 3.3, Absolute Lymphs (auto) 3.79, Nucleated RBC % 0, PT 12.4, INR 0.9, APTT 35.7, Sodium 138, Potassium 3.6, Chloride 106, Carbon Dioxide 29.0, Anion Gap 3 L, BUN 13, Creatinine 0.82, Estim Creat Clear Calc 54.74, Est GFR (MDRD) Af Amer 86, Est GFR (MDRD) Non-Af 71, BUN/Creatinine Ratio 15.8, Glucose 162 H, Calcium 9.6, Magnesium 2.3, Troponin I High Sens 6 06/02/23 05:50: WBC 8.9, RBC 4.59, Hgb 13.7, Hct 42.2, MCV 91.9, MCH 29.8, MCHC 32.5, RDW Std Deviation 43.2, RDW Coeff of Daria 12.8, Plt Count 254, MPV 9.0, Immature Gran % (Auto) 0.300, Neut % (Auto) 73.7 H, Lymph % (Auto) 17.7 L, Saunders % (Auto) 7.6, Eos % (Auto) 0.4, Baso % (Auto) 0.3, Absolute Neuts (auto) 6.6, Absolute Lymphs (auto) 1.58, Nucleated RBC % 0, Sodium 138, Potassium 4.0, Chloride 108 H, Carbon Dioxide 27.0, Anion Gap 3 L, BUN 12, Creatinine 0.75, Estim Creat Clear Calc 57.32, Est GFR (MDRD) Af Amer 95, Est GFR (MDRD) Non-Af 79, BUN/Creatinine Ratio 15.9, Glucose 102, Calcium 8.6, Total Bilirubin 0.90, AST 98 H, ALT 178 H, Alkaline Phosphatase 158 H, Total Protein 6.4, Albumin 3.2, Globulin 3.2, Albumin/Globulin Ratio 1.0, Triglycerides 169, Cholesterol 225 H, LDL Cholesterol 149 H, VLDL Cholesterol 34, HDL Cholesterol 42, TSH 1.20 Imaging Radiology Impression Brain CT 06/01/23 19:08 IMPRESSION: Mild periventricular white matter ischemic changes. No mass or acute bleed.. If concern for acute infarct MRI recommended Electronically Signed: Morales Topete MD at 19:28 EST , ADDENDUM: 06/01/23 193 IMPRESSION: Mild periventricular white matter ischemic changes. No mass or acute bleed.. If concern for acute infarct MRI recommended N.B. : The above Results were Read Back by Morales Topete MD to Andrés Acuña MD, and understanding confirmed on 06/01/2023 19:29:49 (ET). Electronically Signed: Morales Topete MD at 19:28 EST , ADDENDUM: 06/01/231944 IMPRESSION: Mild periventricular white matter ischemic changes. No mass or acute bleed.. If concern for acute infarct MRI recommended N.B. : The above Results were Read Back by Morales Topete MD to Andrés Acuña MD, and understanding confirmed on 06/01/2023 19:38:11 (ET). Electronically Signed: Morales Topete MD at 19:28 EST , Head/Neck CTA 06/01/23 19:15 IMPRESSION: Mild atherosclerotic changes of the head and neck. No evidence for hemodynamically significant stenosis or major vessel occlusion Electronically Signed: Morales Topete MD at 19:45 EST , ADDENDUM: 06/01/231951 IMPRESSION: Mild atherosclerotic changes of the head and neck. No evidence for hemodynamically significant stenosis or major vessel occlusion N.B. : The above Results were Read Back by Morales Topete MD to Andrés Acuña MD, and understanding confirmed on 06/01/2023 19:46:01 (ET). Electronically Signed: Morales Topete MD at 19:45 EST , Chest X-Ray 06/01/23 20:18 IMPRESSION: No acute cardiopulmonary pathology Electronically Signed: Morales Topete MD at 20:48 EST , Brain MRI 06/02/23 10:00 IMPRESSION: 1. No MRI evidence of acute or subacute ischemic infarct old ischemic infarct. 2. Chronic white matter ischemic changes in both cerebral hemispheres and one in the right central pontine tegmentum. Electronically Signed: Andrés Chiang MD at 11:43 EST , Active Medications Active Medications Active Medications: Current Medications Generic Name Dose Route Start Last Admin Trade Name Freq PRN Reason Stop Dose Admin Acetaminophen 650 mg 06/01/23 21:52 Acetaminophen 325 Mg Tablet PO Q4H PRN PRN Fever, pain 1-01/18 Al Hydroxide/Mg Hydroxide 30 ml 06/01/23 21:52 Mag Hydrox/Al Hydrox/Simeth 30 Ml Udc PO Q6H PRN PRN Gastric Burning Albuterol Sulfate 2.5 mg 06/01/23 21:52 Albuterol 2.5 Mg/3 Ml Vial.Neb. INHALATION Q2H PRN PRN Dyspnea, wheezing Aspirin 81 mg 06/02/23 08:00 06/02/23 10:45 Aspirin 81 Mg Tab.Chew PO 81 mg BREAKFAST PHIL Administration Atorvastatin Calcium 20 mg 06/01/23 22:00 06/01/23 23:04 Atorvastatin Calcium 20 Mg Tablet PO 20 mg QHS PHIL Administration Budesonide 0.5 mg 06/01/23 21:52 06/02/23 06:50 Budesonide Respules 0.5 Mg/2 Ml Ampul.Neb. INHALATION 0.5 mg BID.RT PHIL Administration Donepezil HCl 10 mg 06/02/23 10:00 06/02/23 10:45 Donepezil Hcl 10 Mg Tablet PO 10 mg DAILY PHIL Administration Doxepin HCl 10 mg 06/01/23 21:52 Doxepin Hydrochloride 10 Mg Capsule PO DAILY PRN PRN anxiety Enoxaparin Sodium 40 mg 06/02/23 10:00 06/02/23 10:47 Enoxaparin 40 Mg/0.4 Ml Syringe SC 40 mg DAILY PHIL Administration Guaifenesin 20 ml 06/01/23 21:52 Guaifenesin 10 Ml Udc (200mg/10ml) PO Q4H PRN PRN COUGH Hydralazine HCl 5 mg 06/01/23 21:52 Hydralazine 20 Mg/Ml Vial IV Q30M PRN to maintain BP goals Labetalol HCl 10 - 20 mg 06/01/23 21:52 Labetalol (Prefilled) 20 Mg/4 Ml IV Q10M PRN PRN to Maintain BP Goals Levothyroxine Sodium 50 mcg 06/02/23 06:00 06/02/23 05:49 Levothyroxine 50 Mcg Tablet PO 50 mcg DAILY@0600 PHIL Administration Melatonin 3 mg 06/01/23 21:52 Melatonin 3 Mg Tablet PO QHS PRN PRN INSOMNIA Ondansetron HCl 4 mg 06/01/23 21:52 Ondansetron 4 Mg/2 Ml Vial IV Q8H PRN PRN NAUSEA/VOMITING Paroxetine HCl 10 mg 06/02/23 10:00 06/02/23 10:45 Paroxetine 10 Mg Tablet PO 10 mg DAILY PHIL Administration Prochlorperazine Edisylate 5 mg 06/01/23 21:52 Prochlorperazine 10 Mg/2 Ml Vial IV Q4H PRN PRN Breakthrough Nausea/Vomiting Quetiapine Fumarate 25 mg 06/02/23 10:00 06/02/23 10:45 Quetiapine 25 Mg Tablet PO 25 mg DAILY PHIL Administration Protocol Senna/Docusate Sodium 2 tablet 06/01/23 21:52 Senna/Docusate Sodium 1 Tablet PO BID PRN PRN Constipation Sodium Chloride 10 - 40 ml 06/01/23 22:36 06/02/23 10:46 0.9% Saline Lock 10 Ml Syringe IV 10 ml UD PRN Administration SALINE FLUSH
--- NOTE | 2023-06-02 14:19 | CASEMGMT ---
Patient is from [facility]. SW spoke with patient's daughter and the plan is for patient to return to [facility]. Patient's daughter will transport patient. Plan: d/c back to [facility]. Family will transport patient. Ethel Pineda CARD PUNCHING MACHINE OPERATORAlisa CASTANEDA
[2023-06-02 14:36] VITALS: BMI 30.2
[2023-06-02 15:34] LABS: Hemoglobin A1c 6.1 % (3.8-5.6)
== END 2023-06-02 12:57 | disposition home or self-care (01) ==
LOC: ED 21:12 → PCU 21:14
PROVIDERS: Admitting Provider Family Medicine; Emergency Provider Emergency Medicine; PCP Family Medicine; Visit Provider Internal Medicine
DX: R47.81 Slurred speech (principal); F03.90 Unspecified dementia, unspecified severity, without behavioral disturbance, psychotic disturbance, mood disturbance, and anxiety; E78.00 Pure hypercholesterolemia, unspecified; R29.810 Facial weakness; R42 Dizziness and giddiness; Z86.718 Personal history of other venous thrombosis and embolism; Z79.899 Other long term (current) drug therapy; E03.9 Hypothyroidism, unspecified; Z79.890 Hormone replacement therapy; R09.02 Hypoxemia; R03.0 Elevated blood-pressure reading, without diagnosis of hypertension; R73.9 Hyperglycemia, unspecified; E66.9 Obesity, unspecified; Z68.31 Body mass index [BMI] 31.0-31.9, adult; F41.8 Other specified anxiety disorders; R94.31 Abnormal electrocardiogram [ECG] [EKG]; I44.0 Atrioventricular block, first degree; R00.1 Bradycardia, unspecified
CPT/HCPCS: 36415; 70450; 70496; 70498; 70551; 71045; 71046; 80048; 80053; 80061; 83036; 83735; 84443; 84484; 85025; 85610; 85730; 93005; 93306; 94640; 94668; 94762; 95819; 96360; 96361; 96372; 97161; 97166; 97802; 99221; 99252; 99283; J7030; Q9967; A4216; G0378; G0463

== ENCOUNTER → 2023-06-15 | Outpatient (REF) | payer MEDICARE, OTHER, SELFPAY ==
[2023-06-15 08:29] LABS: AST(SGOT) 48 U/L (15-37); Alanine Aminotransfer ALT/SGPT 108 U/L (13-56); Albumin, Serum 3.4 g/dL (3.2-5.0); Alkaline Phosphatase 143 U/L (45-117); Bilirubin, Direct 0.22 mg/dL (0.00-0.30); Globulin 3.4 g/dL (2.2-4.2); Protein, Total 6.8 g/dL (6.4-8.2)
== END ==
LOC: OLS.SWAL 05:00
PROVIDERS: PCP Family Medicine; Visit Provider Family Medicine
DX: E78.5 Hyperlipidemia, unspecified (principal)
CPT/HCPCS: 36415; 80076

== ENCOUNTER → 2023-06-28 | Outpatient (REF) | payer MEDICARE, OTHER, SELFPAY ==
--- OUTSIDE RECORDS SUMMARY | 2023-06-28 05:00 | XMS RPT_ITS | CCD ---
Author Name Unknown Address [address] [place] [address] Organization [facility] Care Team Providers Care Airway Traffic Controller Name Role Phone Michelle Julien LPN Unavailable Michelle Julien LPN Unavailable [phone] Priscilla Bower LPN Unavailable Unavailable Enoc Minor Unavailable Medications Completed/Discontinued Medications Medication Drug Class(es) Dates Sig (Normalized) Sig (Original) cyclobenzaprine hydrochloride 10 mg oral tablet (2 sources) Muscle Relaxant Start: 12-02-2016 CYCLOBENZAPRINE HCL 10 MG TABS 1 tablet nightly as needed for pain CYCLOBENZAPRINE HCL [id number] Enoc NASH naproxen 500 mg delayed release oral tablet (8 sources) Nonsteroidal Anti-inflammatory Drug Start: 12-02-[address] 500 MG TBEC 1 tablet twice a day NAPROXEN [id number] Enoc NASH Problems Problem Classification Problem Date [...] Date Time Vital Sign Value Performing Clinician Faccristopher archuleta 12-02-2016 13:01-0400 Body height 162.56 cm Priscilla Bower LPN [facility] Work Phone: 12-02-2016 13:01-0400 Body mass index (BMI) [Ratio] 24.2 kg/m2 Priscilla Bower LPN [facility] Work Phone: 12-02-2016 13:01-0400 Body temperature 98.2 [degF] Priscilla Bower LPN [facility] Work Phone: 12-02-2016 13:01-0400 Body weight 63.96 kg Priscilla Bower LPN [facility] Work Phone: 12-02-2016 13:01-0400 Diastolic blood pressure 74 mm[Hg] Priscilla Bower LPN [facility] Work Phone: 12-02-2016 13:01-0400 Heart rate 72 /min Priscilla Bower LPN [facility] Work Phone: 12-02-2016 13:-0400 Respiratory rate 12 /min Priscilla Bower LPN [facility] Work Phone: 12-02-2016 13:01-0400 Systolic blood pressure 154 mm[Hg] Priscilla Bower MARBLE HELPER [facility] Work Phone: 08-13-2016 14:52-0400 Body height 162.56 cm Michelle Julien MARBLE HELPER Work Phone: [facility] Work Phone: 08-13-2016 14:52-0400 Body mass index (BMI) [Ratio] 25.06 kg/m2 Michelle Boltonkasie MARBLE HELPER Work Phone: [facility] Work Phone: 08-13-2016 14:52-0400 Body temperature 98.9 [degF] Michelle Boltonar MARBLE HELPER Work Phone: [facility] Work Phone: 08-13-2016 14:52-0400 Body weight 66.23 kg Michelle Boltonar MARBLE HELPER Work Phone: [facility] Work Phone: 08-13-2016 14:52-0400 Diastolic blood pressure 90 mm[Hg] Michelle Boltonar MARBLE HELPER Work Phone: [facility] Work Phone: 08-13-2016 14:52-0400 Heart rate 83 /min Michelle Julien MARBLE HELPER Work Phone: [facility] Work Phone: 08-13-2016 14:52-0400 Respiratory rate 16 /min Michelle Julien MARBLE HELPER Work Phone: [facility] Work Phone: 08-13-2016 14:52-0400 SaO2% (BldA) [Mass fraction] 97 % Michelle Julien MARBLE HELPER Work Phone: [facility] Work Phone: 08-13-2016 14:52-0400 Systolic blood pressure 142 mm[Hg] Michelle Julien MARBLE HELPER Work Phone: [facility] Work Phone: Procedures Date Procedure Procedure Detail Performing Clinician Start: 12-02-2016 End: 12-02-2016 Documentation of current medications Priscilla Sathish CONTRERAS Start: 08-13-2016 End: 08-13-2016 Documentation of current medications Michelle Julien MARBLE HELPER Work Phone: Plan of Treatment Date Care Activity Detail Author Start: 12-02-2016 End: 12-02-2016 Patient encounter procedure Appointment [facility] Work Phone: Start: 12-02-2016 End: 12-02-2016 Chest x-ray X-Ray, Chest, PA & Lateral [facility] Work Phone: Start: 12-02-2016 End: 12-02-2016 Radex ribs unilateral 2 views X-Ray, Rib, Unilateral [facility] Work Phone: Start: 08-13-2016 End: 08-13-2016 Patient encounter procedure Appointment [facility] Work Phone: [facility] Work Phone: Fall risk assessment 12-02-2016 Note Date & Type Note Facility Summary Purpose Family History No Family History Records FoundNo Family History Records Found Advance Directives No Advanced Directives Records FoundNo Advanced Directives Records Found Additional Source Comments INFORMATION SOURCE (unrecogn ized section and content) DATE CREATED AUTHOR AUTHOR'S TRU CARRENO 09/11/2020 [facility] FOR RECORDS PERTAINING TO PATIENTS WHO ARE [...] BE BASED ON THE PRIMARY CLINICAL RECORDS. [facility]. provides no warranty or guarantee of the accuracy or completeness of information in this document.
[2023-06-28 10:43] LABS: Hemoglobin A1c 5.9 % (3.8-5.6)
== END ==
LOC: OLS.SWAL 05:00
PROVIDERS: PCP Family Medicine; Visit Provider Family Medicine
DX: R42 Dizziness and giddiness (principal); Z79.899 Other long term (current) drug therapy
CPT/HCPCS: 36415; 83036

== ENCOUNTER → 2024-04-16 | Outpatient (CLI) | payer MEDICARE, MEDICAID, SELFPAY ==
[2024-04-16 15:41] LABS: Absolute Lymphocyte Count 2.01 X10^3/uL (0.83-4.51); Absolute Neutrophil Count 4.8 X10^3/uL (2.0-7.7); Basophil# 0.06 X10^3/uL; Basophil% 0.8 % (0-1); Eosinophil# 0.32 X10^3/uL; Hematocrit 45.3 % (37-47); Hemoglobin 14.4 g/dL (12.0-15.0); Lymphocyte # 2.01 X10^3/ul (0.83-4.51); Lymphocyte % 25.3 % (19-41); Mean Corp Hgb Conc 31.8 g/dL (32-36); Mean Corpuscular Hgb 29.1 pg (27.0-32.0); Mean Corpuscular Volume 91.5 fL (81-99); Monocyte% 8.8 % (0-10); NRBC Flagged by Analyzer 0 % (0-5); Neutrophil % 60.6 % (47-70); Platelet Count 324 K/mm3 (150-450); RBC Distribution Width CV 12.9 % (11.6-14.6); RBC Distribution Width SD 43.3 fl (35.1-43.9); Red Blood Count 4.95 M/mm3 (4.2-5.4); White Blood Count 7.9 K/mm3 (4.4-11.0)
[2024-04-16 16:20] LABS: Vitamin D,25 Hydroxy 80.7 ng/mL
[2024-04-16 16:25] LABS: AST(SGOT) 37 U/L (15-37); Alanine Aminotransfer ALT/SGPT 73 U/L (13-56); Cholesterol 210 mg/dL (200); High Density Lipoprotein 40 mg/dL; T4 Total, Thyroxin 10.1 ug/dL (4.8-13.9); Triglycerides 177 mg/dL; Very Low Density Lipoprotein 35 mg/dL (5-40)
== END | disposition home or self-care (01) ==
LOC: MFPLAB 10:57
PROVIDERS: PCP Family Medicine; Referring Provider Family Medicine; Visit Provider Family Medicine
DX: F03.90 Unspecified dementia, unspecified severity, without behavioral disturbance, psychotic disturbance, mood disturbance, and anxiety (principal); E78.5 Hyperlipidemia, unspecified; E55.9 Vitamin D deficiency, unspecified
CPT/HCPCS: 36415; 80061; 82306; 84436; 84443; 84450; 84460; 85025

== ENCOUNTER → 2024-12-06 22:30 | Outpatient (REF) | payer MEDICARE, MEDICAID, SELFPAY ==
[2024-12-07 08:34] LABS: Mucous, Urine 0 SEEN /hpf (<or=2+)
[2024-12-07 08:44] LABS: Color, Urine Yellow (Yellow); Glucose, Dipstick Normal (Normal); Ketone-Dipstick Negative (Negative); Leukocyte Esterase-Dipstick 100 /ul (Negative); Nitrite-Dipstick Negative (Negative); Occult Blood-Urine Negative /ul (Negative); Protein-Dipstick 15 mg/dl (Negative); Specific Gravity, Urine 1.010 (1.002-1.030); Urine Bilirubin Dipstick Negative (Negative)
[2024-12-07 08:57] LABS: Red Blood Cells-Urine 0-5 SEEN /hpf (0-5); Squamous Epithelial Cells - UA 0-5 SEEN /hpf (5-10)
== END ==
LOC: OLS.SWAL 22:30
PROVIDERS: PCP Family Medicine; Visit Provider Family Medicine
DX: N39.0 Urinary tract infection, site not specified (principal)
CPT/HCPCS: 81001; 87077; 87086; 87088; 87186

== ENCOUNTER → 2025-01-28 | Outpatient (CLI) | payer MEDICARE, MEDICAID, SELFPAY ==
--- OUTSIDE RECORDS SUMMARY | 2025-01-28 10:10 | XMS RPT_ITS | CCD ---
Author Organization [facility] Care Team Providers Care Safety And Security Manager Name Role Phone [employer] MECHANIC, Michelle N Unavailable [employer]ar POWERHOUSE MECHANIC, Michelle N Unavailable Priscilla Bower LPN E Unavailable Unavailable Enoc Minor Unavailable Dr. Adrienne Cruz S Primary Care Provider Dr. John Pool Attending Provider Dr. Adrienne Cruz S Primary Care Provider Dr. John Pool Attending Provider MD Andrés Acuña Emergency Provider Dr. Haven Watson Admit Provider Dr. Haven Watson Other Provider Dr. Nithin Connell Other Provider Dr. Leana Mendoza Other Provider MD Jaclyn Chin Other Provider Dr. Yuko Gerber Other Provider MD Samson Terry Other Provider Unavailable MD Marisol Fagan Other Provider Unavailable Dr. Mari Martin Other Provider Dr. Lars Purcell Other Provider Dr. Belkis Murphy Other Provider Dr. Freedom Coker Other Provider Dr. Tenzin Albarado Other Provider Dr. Nathaniel George Other Provider Dr. Ysabel Vasquez Other Provider [phone] Amanda Vergara Other Provider Dr. Mk Beebe Other Provider [phone] Yulissa Brewer Other Provider Dr. Parker Bolton Other Provider Dr. Rosibel Drake Other Provider Unavailable MD Brennon Dennis Other Provider Unavailable MD Jillian Willoughby Other Provider Kal, MS Eder Other Provider MD Kris Nobles Other Provider MD HECTOR ALVES Other Provider MD Shakir Hernandez Other Provider MD Ava Cooper Other Provider Dr. Maxime Dale Attending Provider [phone] Dr. Maxime Dale Other Provider [phone] Adrienne Cruz Primary Care Unavailable Benito Washburn Attending Unavailable Adrienne Cruz Referring Unavailable Adrienne Cruz Attending Unavailable Adrienne Cruz Primary Care Unavailable Allergies Allergy Classification Reported Allergen(s) Allergy Type Date of Onset Reaction(s) Facility (7 sources) valACYclovir Drug Allergy 05-12-2021 Rash [facility] (1 source) valACYclovir Drug Allergy 05-12-2021 [facility] Repository Medications Current Medications Medication Drug Class(es) Dates Sig (Normalized) Sig (Original) donepezil hydrochloride 10 mg oral tablet (7 sources) Start: 01-15-2021 take 1 tablet by mouth once daily Donepezil (Aricept) 10 mg tablet Active 10 MG PO DAILY January 15, 2021 12:00am doxepin hydrochloride 10 mg oral capsule (3 sources) Tricyclic Antidepressant Start: 06-01-2023 take 10 mg by mouth once daily Doxepin Active 10 MG PO DAILY June 01, 2023 1:00am levothyroxine sodium 0.05 mg oral tablet (3 sources) l-Thyroxine Start: 06-01-2023 take 50 ug by mouth once daily Levothyroxine Active 50 MCG PO DAILY June 01, 2023 1:00am PARoxetine hydrochloride 10 mg oral tablet (14 sources) Serotonin Reuptake Inhibitor Start: 01-15-2021 take 1 tablet by mouth once daily Paroxetine Hcl (Paxil) 10 mg tablet Active 10 MG PO DAILY January 15, 2021 12:00am Start: 09-28-2017 End: 01-15-2021 take 20 mg by mouth once daily Paroxetine Hcl Disconti nued 20 MG PO DAILY September 28, 2017 12:00am January 15, 2021 10:43am QUEtiapine 25 mg oral tablet (7 sources) Atypical Antipsychotic Start: 01-15-2021 take 1 tablet by mouth once daily Quetiapine (Seroquel) 25 mg tablet Active 25 MG PO DAILY January 15, 2021 12:00am rosuvastatin calcium 20 mg oral tablet (13 sources) HMG-CoA Reductase Inhibitor Start: 06-02-2023 take 20 mg by mouth at bedtime Rosuvastatin Active 20 MG PO AT BEDTIME June 02, 2023 1:00am Start: 02-17-2017 End: 06-02-2023 take 10 mg by mouth at bedtime Rosuvastatin Discontinu ed 10 MG PO AT BEDTIME February 17, 2017 1:00am June 02, 2023 1:54pm Start: 08-13-2016 CRESTOR 10 MG TABS as directed ROSUVASTATIN CALCIUM [id number] Michelle Julien LPN Completed/Discontinued Medications Medication Drug Class(es) Dates Sig (Normalized) Sig (Original) acetaminophen 325 mg / oxyCODONE hydrochloride 5 mg oral tablet (7 sources) Opioid Agonist Start: 05-12-2021 End: 06-01-2023 take 1 tablet by mouth every eight hours Oxycodone-Acetaminop hen (Percocet) 5-325 mg tablet Discontinued 1 TABLET PO Q8H 10 May 12, 2021 June 01, 2023 10:57pm cephalexin 500 mg oral capsule (7 sources) Cephalosporin Antibacterial Start: 05-12-2021 End: 06-01-2023 take 500 mg by mouth every twelve hours Cephalexin Discontinued 500 MG PO EVERY 12 HOURS 6 3 May 12, 2021 1:00am June 01, 2023 10:57pm cyclobenzaprine hydrochloride 10 mg oral tablet (2 sources) Muscle Relaxant Start: 12-02-2016 CYCLOBENZAPRINE HCL 10 MG TABS 1 tablet nightly as needed for pain CYCLOBENZAPRINE HCL [id number] Eonc NASH meclizine hydrochloride 25 mg oral tablet (7 sources) Antiemetic Start: 08-09-2019 End: 01-15-2021 take 25 mg by mouth three times daily as needed Meclizine Discontinued 25 MG PO 3 TIMES DAILY NEEDED August 09, 2019 12:32am January 15, 2021 10:43am naproxen 500 mg delayed release oral tablet (8 sources) Nonsteroidal Anti-inflammatory Drug Start: 12-02-[address] 500 MG TBEC 1 tablet twice a day NAPROXEN [id number] Enoc NASH Start: 08-13-2016 ALEVE 220 MG C APS as directed NAPROXEN SODIUM [id number] Michelle Julien LPN ondansetron 4 mg disintegrating oral tablet (7 sources) Serotonin-3 Receptor Antagonist Start: 08-09-2019 End: 01-15-2021 take 4 mg by mouth every eight hours as needed Ondansetron Discontinued 4 MG PO EVERY 8 HOURS NEEDED August 09, 2019 12:00am January 15, 2021 10:43am Problems Active Problems Problem Classification Problem Date Documented Da te Episodic/Chronic Cancer of breast (7 sources) Malignant tumor of breast ; Translations: [Malignant neoplasm of unspecified site of unspecified female breast] 08-08-2019 Chronic Conditions associated with dizziness or vertigo (13 sources) Peripheral vertigo; Translations: [Other peripheral vertigo, unspecified ear] 08-10-2019 Episodic Delirium, dementia, and amnestic and other cognitive disorders (8 sources) Dementia; Translations: [Unspecified dementia without behavioral disturbance] Onset: 05-07-2024 05-14-2021 Chronic Diseases of mouth; excluding dental (7 sources) Furred tongue; Translations: [Hypertrophy of tongue papillae] 07-07-2020 Episodic Disorders of lipid metabolism (7 sources) Hyperlipidemia; Translations: [Hyperlipidemia, unspecified] 08-08-2019 Chronic E Codes: Fall (7 sources) Fall; Translations: [Unspecified fall, initial encounter] 05-14-2021 Episodic Menopausal disorders (7 sources) Postmenopausal bleeding; Translations: [Postmenopausal bleeding] 02-26-2021 Chronic Neoplasms of unspecified nature or uncertain behavior (7 sources) Neoplasm of uncertain behavior of bladder; 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] 05-12-2021 Episodic Other connective tissue disease (3 sources) Weakness of face muscles; Translations: [Facial weakness] 06-01-2023 Episodic Other connective tissue disease (3 sources) Facial weakness; Translations: [Facial weakness] 06-01-2023 Episodic Other gastrointestinal disorders (7 sources) Dysphagia; Translations: [Dysphagia, unspecified] 09-03-2020 Episodic Prolapse of female genital organs (7 sources) Uterovaginal prolapse; Translations: [Uterovaginal prolapse, unspecified] 02-26-2021 Chronic Rehabilitation care; fitting of prostheses; and adjustment of devices (7 sources) Patient encounter status; Translations: [Encounter for fitting and adjustment of other specified devices] 02-23-2021 Chronic Transient cerebral ischemia (6 sources) Transient cerebral ischemia; Translations: [Transient cerebral ischemic attack, unspecified] 06-01-2023 Chronic Urinary tract infections (1 source) Urinary tract infection, site not specified; Translations: [Urinary tract infection, site not specified] Onset: 12-19-2024 Episodic Past or Other Problems Problem Classification Problem Date Documented Da te Episodic/Chronic Lymphadenitis (4 sources) Acute lymphadenitis; Translations: [Acute lymphadenitis, unspecified] Onset: 08-13-2016 08-13-2016 Episodic Superficial injury; contusion (4 sources) Contusion of right shoulder, initial encounter; Translations: [Contusion of right front wall of thorax, initial encounter] Onset: 12-02-2016 12-02-2016 Episodic Results Test Name Value Interpretation Reference Range Facility Urine Cultureon 12-09-2024 [facility] Escherichia coli Campbell Count >100,000 Escherichia coli: REACTION Ampicillin Islt LUIS F <=2 Ampicillin+Sulbac Islt LUIS F <=2 S Cefepime Islt LUIS F <=0.12 S cefTRIAXone Islt LUIS F <=0.25 S Ciprofloxacin Islt LUIS F <=0.06 S B-Lactamase Extended Susc Islt NEG Gentamicin Islt LUIS F <=1 S levoFLOXacin Islt LUIS F <=0.12 S Meropenem Islt LUIS F <=0.25 S Nitrofurantoin Islt LUIS F <=16 S Pip+Tazo Islt LUIS F <=4 S TMP SMX Islt LUIS F <=20 S Normal [facility] Comment on above: Performed By: #### L 400.0001, M1.0 #### [facility] [address] [place], [address] Urinalysis, Completeon 12-07 BACTERIA 3+ /hpf Normal None Seen [facility] Comment on above: Order Comment: CLEAN CATCH Performed By: #### L 400.0001, .2199 #### [facility] [address] [place], [address] EPI,SQUAMOUS 0-5 SEEN Normal 5-10 [facility] Comment on above: Order Comment: CLEAN CATCH Performed By: #### L 400.0001, #### [facility] [address] [place], [address] RBC 0-5 SEEN Normal 0-5 [facility] Comment on above: Order Comment: CLEAN CATCH Performed By: #### L 400.0001, M1.2199 #### [facility] [address] [place], [address] WBC 25-50 SEEN Normal 0-5 [facility] Comment on above: Order Comment: CLEAN CATCH Performed By: #### L 400.0001, .2199 #### [facility] [address] [place], [address] Mucus Ql (Urine sed) 0 SEEN Normal [facility] Comment on above: Order Comment: CLEAN CATCH Performed By: #### L 400.0001, M1 #### [facility] [address] [place], [address] AST(SGOT)on 04-16-2024 AST [Catalytic activity/Vol] 37 U/L Normal 15-37 [facility] Comment on above: Performed By: #### L 506.1000, L501.4100, L100.0100, L501.4405, L501.9310, L500.4100, L501.9520 #### [facility] [address] [place], [address] Alanine Aminotransferas (SGP T)on 04-16-2024 ALT [Catalytic activity/Vol] 73 U/L High 13-56 [facility] Comment on above: Performed By: #### L 506.1000, L501.4100, L100.0100, L501.4405, L501.9310, L500.4100, L501.9520 #### [facility] [address] [facility] [place], [address] CBC W/Diff, Automatedon 01-0 Absolute Lymph 2.01 X10 3/uL Normal 0.83-4.51 [facility] Comment on above: Performed By: #### L 506.1000, L501.4100, L100.0100, L501.4405, L501.9310, L500.4100, L501.9520 #### [facility] [address] [facility] [place], [address] Absolute Neut 4.8 X10 3/uL Normal 2.0-7.7 [facility] Comment on above: Performed By: #### L 506.1000, L501.4100, L100.0100, L501.4405, L501.9310, L500.4100, L501.9520 #### [facility] [address] [place], [address] Basophils/100 WBC (Bld) 0.8 % Normal 0-1 [facility] Comment on above: Performed By: #### L 506.1000, L501.4100, L100.0100, L501.4405, L501.9310, L500.4100, L501.9520 #### [facility] [address] [facility] [place], [address] Eosinophils/100 WBC (Bld) 4.0 % Normal 0-5 [facility] Comment on above: Performed By: #### L 506.1000, L501.4100, L100.0100, L501.4405, L501.9310, L500.4100, L501.9520 #### [facility] [address] [place], [address] Erythrocyte distribution width (RBC) [Ratio] 12.9 % Normal 11.6-14.6 [facility] Comment on above: Performed By: #### L 506.1000, L501.4100, L100.0100, L501.4405, L501.9310, L500.4100, L501.9520 #### [facility] [address] [place], [address] Hematocrit (Bld) [Volume fraction] 45.3 % Normal 37-47 [facility] Comment on above: Performed By: #### L 506.1000, L501.4100, L100.0100, L501.4405, L501.9310, L500.4100, L501.9520 #### [facility] [address] [place], [address] Hemoglobin (Bld) [Mass/Vol] 14.4 g/dL Normal 12.0-15.0 [facility] Comment on above: Performed By: #### L 506.1000, L501.4100, L100.0100, L501.4405, L501.9310, L500.4100, L501.9520 #### [facility] [address] [place], [address] IG% 0.500 Normal 0.0-0.9 [facility] Comment on above: Result Comment: IG% - Immature Granulocytes (promyelocytes, myelocytes and metamyelocytes) > 1% indicates that a LEFT SHIFT is Present. Performed By: #### L 506.1000, L501.4100, L100.0100, L501.4405, L501.9310, L500.4100, L501.9520 #### [facility] [address] [place], [address] Lymphocytes/100 WBC (Bld) 25.3 % Normal 19-41 [facility] Comment on above: Performed By: #### L 506.1000, L501.4100, L100.0100, L501.4405, L501.9310, L500.4100, L501.9520 #### [facility] [address] [place], [address] MCH (RBC) [Entitic mass] 29.1 pg Normal 27.0-32.0 [facility] Comment on above: Performed By: #### L 506.1000, L501.4100, L100.0100, L501.4405, L501.9310, L500.4100, L501.9520 #### [facility] [address] [place], [address] MCHC (RBC) [Mass/Vol] 31.8 g/dL Low 32-36 [facility] Comment on above: Performed By: #### L 506.1000, L501.4100, L100.0100, L501.4405, L501.9310, L500.4100, L501.9520 #### [facility] [address] [place], [address] MCV (RBC) [Entitic vol] 91.5 fL Normal 81-99 [facility] Comment on above: Performed By: #### L 506.1000, L501.4100, L100.0100, L501.4405, L501.9310, L500.4100, L501.9520 #### [facility] [address] [place], [address] Monocytes/100 WBC (Bld) 8.8 % Normal 0-10 [facility] Comment on above: Performed By: #### L 506.1000, L501.4100, L100.0100, L501.4405, L501.9310, L500.4100, L501.9520 #### [facility] [address] [place], [address] Neutrophils/100 WBC (Bld) 60.6 % Normal 47-70 [facility] Comment on above: Performed By: #### L 506.1000, L501.4100, L100.0100, L501.4405, L501.9310, L500.4100, L501.9520 #### [facility] [address] [place], [address] Nucleated RBC (Bld) [#/Vol] 0 10*3/uL Normal 0-5 [facility] Comment on above: Performed By: #### L 506.1000, L501.4100, L100.0100, L501.4405, L501.9310, L500.4100, L501.9520 #### [facility] [address] [place], [address] Platelet mean volume (Bld) [Entitic vol] 9.0 fL Normal 6.2-12.0 [facility] Comment on above: Performed By: #### L 506.1000, L501.4100, L100.0100, L501.4405, L501.9310, L500.4100, L501.9520 #### [facility] [address] [place], [address] Platelets (Bld) [#/Vol] 324 10*3/uL Normal 150-450 [facility] Comment on above: Performed By: #### L 506.1000, L501.4100, L100.0100, L501.4405, L501.9310, L500.4100, L501.9520 #### [facility] [address] [place], [address] RBC (Bld) [#/Vol] 4.95 10*6/uL Normal 4.2-5.4 [facility] Comment on above: Performed By: #### L 506.1000, L501.4100, L100.0100, L501.4405, L501.9310, L500.4100, L501.9520 #### [facility] [address] [place], [address] RDW SD 43.3 fl Normal 35.1-43.9 [facility] Comment on above: Performed By: #### L 506.1000, L501.4100, L100.0100, L501.4405, L501.9310, L500.4100, L501.9520 #### [facility] [address] [place], [address] WBC (Bld) [#/Vol] 7.9 10*3/uL Normal 4.4-11.0 [facility] Comment on above: Performed By: #### L 506.1000, L501.4100, L100.0100, L501.4405, L501.9310, L500.4100, L501.9520 #### [facility] [address] [place], [address] Lipid Profileon 04-16-2024 Cholesterol [Mass/Vol] 210 mg/dL High 200 [facility] Comment on above: Result Comment: <200 mg/dL Desirable 200-240 mg/dL Borderline >240 mg/dL High Risk Performed By: #### L 506.1000, L501.4100, L100.0100, L501.4405, L501.9310, L500.4100, L501.9520 #### [facility] [address] [place], [address] Cholesterol in HDL [Mass/Vol] 40 mg/dL Normal [facility] Comment on above: Result Comment: The drugs N-Acetylcysteine and Metamizole may falsely depress this assay. Reference Range HDL <40 mg/dL Low HDL Cholesterol HDL >or= 60 mg/dL High HDL Cholesterol Performed By: #### L 506.1000, L501.4100, L100.0100, L501.4405, L501.9310, L500.4100, L501.9520 #### [facility] [address] [place], [address] Cholesterol in LDL [Mass/Vol] 135 mg/dL High 0-130 [facility] Comment on above: Performed By: #### L 506.1000, L501.4100, L100.0100, L501.4405, L501.9310, L500.4100, L501.9520 #### [facility] [address] [place], [address] Cholesterol in VLDL [Mass/Vol] 35 mg/dL Normal 5-40 [facility] Comment on above: Performed By: #### L 506.1000, L501.4100, L100.0100, L501.4405, L501.9310, L500.4100, L501.9520 #### [facility] [address] [place], [address] Triglyceride [Mass/Vol] 177 mg/dL Normal [facility] Comment on above: Result Comment: The drugs N-Acetylcysteine and Metamizole may falsely depress this assay. Serum Triglycerides Reference Interval Normal <150 mg/dL Borderline high 150 - 199 mg/dL High 200 - 499 mg/dL Very High > or = 500 mg/dL Performed By: #### L 506.1000, L501.4100, L100.0100, L501.4405, L501.9310, L500.4100, L501.9520 #### [facility] [address] [place], [address] T4 Total, Thyroxinon 025 T4 [Mass/Vol] 10.1 ug/dL Normal 4.8-13.9 [facility] Comment on above: Performed By: #### L 506.1000, L501.4100, L100.0100, L501.4405, L501.9310, L500.4100, L501.9520 #### [facility] [address] [place], [address] Thyroid Stim Hormone (TSH)on 04-16-2024 TSH 2.220 uIU/mL Normal 0.358-3.740 [facility] Comment on above: Performed By: #### L 506.1000, L501.4100, L100.0100, L501.4405, L501.9310, L500.4100, L501.9520 #### [facility] [address] [place], [address] Vitamin D,25 Hydroxyon 04-16 Vitamin D 25-OH 80.7 ng/mL Normal [facility] Comment on above: Result Comment: Maida min D 25(OH) Status Range Deficiency <20 ng/mL (50nmol/L) Insufficiency 20 - 30 ng/mL (50 - 75 nmol/L) Sufficiency 30 - 100 ng/mL (75 - 250 nmol/L) Toxicity >100 ng/mL (>250 nmol/L) Performed By: #### L 506.1000, L501.4100, L100.0100, L501.4405, L501.9310, L500.4100, L501.9520 #### [facility] [address] [place], [address] Whole blood hemoglobin A1c/t otal hemoglobin ratio (mass fraction)Ordered By: Adrienne Cruz on 06-28-2023 HbA1c (Bld) [Mass fraction] 5.9 % 3.8-5.6 [facility] Comment on above: Normal < 5.7 % Predi abetic 5.7 - 6.4 % Diabetic >or= 6.5 % Please note range changes. Basophil percentageOrdered B y: Adrienne Cruz on 06-15-2023 Bilirubin [Mass/Vol] 1.10 mg/dL 0.20-1.00 [facility] Comment on above: For patients on eltr ombopag therapy, use of Dimension Perley TBIL is not recommended. Protein [Mass/Vol] 6.8 g/dL 6.4-8.2 [facility] Direct bilirubinOrdered By: Adrienne Cruz on 06-15-2023 Bilirubin.direct [Mass/Vol] 0.22 mg/dL 0.00-0.30 [facility] - Chemistry and C hemistry - challengeOrdered By: Adrienne Cruz on 06-15-2023 ALP [Catalytic activity/Vol] 143 U/L 45-117 [facility] ALT [Catalytic activity/Vol] 108 U/L 13-56 [facility] Globulin (S) [Mass/Vol] 3.4 g/dL 2.2-4.2 [facility] Thin prep Papanicolaou smear with manual screeningOrdered By: Adrienne Cruz on 06-15-2023 Thin prep Papanicolaou smear with manual screening 3.4 g/dL 3.2-5.0 [facility] Thin prep Papanicolaou smear with manual screening 48 U/L 15-37 [facility] Absolute lymphocyte countOrd ered By: Haven Shirley on 06-02-2023 Lymphocytes Auto (Unsp spec) [#/Vol] 1.58 10*3/uL 0.83-4.51 [facility] Automated lymphocyte count a s percentage of total leukocytesOrdered By: Haven Shirley on 06-02-2023 Lymphocytes/100 WBC Auto (Unsp spec) 17.7 % 19-41 [facility] Basophil percentageOrdered B y: on 06-02-2023 Basophils/100 WBC (Bld) 0.3 % 0-1 [facility] Bilirubin [Mass/Vol] 0.90 mg/dL 0.20-1.00 [facility] Comment on above: For patients on eltr ombopag therapy, use of Dimension Perley TBIL is not recommended. Chloride [Moles/Vol] 108 mmol/L 98-107 [facility] Cholesterol [Mass/Vol] 225 mg/dL <200 [facility] Comment on above: <200 mg/dL Desirable 200-240 mg/dL Borderline >240 mg/dL High Risk Eosinophils/100 WBC (Bld) 0.4 % 0-5 [facility] Glucose [Mass/Vol] 102 mg/dL 74-106 [facility] Comment on above: Fasting Glucose resu lt from 100 to 125 mg/dL suggests IMPAIRED HOMEOSTASIS per A.D.A. criteria. Hemoglobin (Bld) [Mass/Vol] 13.7 g/dL 12.0-15.0 [facility] Monocytes/100 WBC (Bld) 7.6 % 0-10 [facility] Neutrophils (Bld) [#/Vol] 6.6 10*3/uL 2.0-7.7 [facility] Neutrophils/100 WBC (Bld) 73.7 % 47-70 [facility] Potassium [Moles/Vol] 4.0 mmol/L 3.5-5.1 [facility] Protein [Mass/Vol] 6.4 g/dL 6.4-8.2 [facility] Sodium [Moles/Vol] 138 mmol/L 136-145 [facility] Triglyceride [Mass/Vol] 169 mg/dL <199 [facility] Comment on above: The drugs N-Acetylcy steine and Metamizole may falsely depress this assay.Serum Triglycerides Reference Interval Normal <150 mg/dL Borderline high 150 - 199 mg/dL High 200 - 499 mg/dL Very High > or = 500 mg/dL WBC (Bld) [#/Vol] 8.9 10*3/uL 4.4-11.0 [facility] Determination of erythrocyte mean corpuscular volume (MCV)Ordered By: Haven Watson on 06-02-2023 MCV (RBC) [Entitic vol] 91.9 fL 81-99 [facility] Erythrocyte distribution wid th ratioOrdered By: on 06-02-2023 Erythrocyte distribution width (RBC) [Ratio] 12.8 % 11.6-14.6 [facility] Erythrocyte distribution wid th standard deviationOrdered By: on 06-02-2023 Erythrocyte distribution width (RBC) [Entitic vol] 43.2 fL 35.1-43.9 [facility] Hematocrit Auto (Bld) [Volum e fraction]Ordered By: Haven Shirley on 06-02-2023 Hematocrit (Bld) [Volume fraction] 42.2 % 37-47 [facility] Immature granulocytes/100 WB C Auto (Bld)Ordered By: Haven Watson on 06-02-2023 Immature granulocytes/100 WBC (Bld) 0.300 % 0.0-0.9 [facility] Comment on above: IG% - Immature Granu locytes (promyelocytes, myelocytes and metamyelocytes) > 1% indicates that a LEFT SHIFT is Present. Laboratory - Chemistry and C hemistry - challengeOrdered By: Haven Watson on 06-02-2023 Albumin/Globulin [Mass ratio] 1.0 {ratio} 0.9-2.4 [facility] ALP [Catalytic activity/Vol] 158 U/L 45-117 [facility] ALT [Catalytic activity/Vol] 178 U/L 13-56 [facility] Cholesterol in HDL [Mass/Vol] 42 mg/dL >40 [facility] Comment on above: The drugs N-Acetylcy steine and Metamizole may falsely depress this assay. Reference Range HDL <40 mg/dL Low HDL Cholesterol HDL >or= 60 mg/dL High HDL Cholesterol Cholesterol in LDL [Mass/Vol] 149 mg/dL 0-130 [facility] CO2 [Moles/Vol] 27.0 mmol/L 21.0-32.0 [facility] Globulin (S) [Mass/Vol] 3.2 g/dL 2.2-4.2 [facility] Urea nitrogen/Creatinine [Mass ratio] 15.9 mg/mg 10-20 [facility] Laboratory - Hematology and Cell countsOrdered By: Haven Watson on 06-02-2023 MCH (RBC) [Entitic mass] 29.8 pg 27.0-32.0 [facility] MCHC (RBC) [Mass/Vol] 32.5 g/dL 32-36 [facility] Nucleated RBC/100 WBC (Bld) [Ratio] 0 % 0-5 [facility] Platelet mean volume (Bld) [Entitic vol] 9.0 fL 6.2-12.0 [facility] Platelets (Bld) [#/Vol] 254 10*3/uL 150-450 [facility] No Panel InformationOrdered By: Haven Watson on 06-02-2023 Estimated Creatinine Clearance Calc 57.32 ml/min [facility] Estimated GFR (MDRD) Amer 95 mL/min >60 [facility] Comment on above: GFR Calc Estimated GFR (MDRD) Non-Af Amer 79 mL/min >60 [facility] Comment on above: Non- GFR Calc VLDL Cholesterol 34 mg/dL 5-40 [facility] RBC Auto (Bld) [#/Vol]Ordere d By: Haven Watson on 06-02-2023 RBC (Bld) [#/Vol] 4.59 10*6/uL 4.2-5.4 [facility] Serum or plasma calcium ryan urement (mass/volume)Ordered By: Haven Watson on 06-02-2023 Calcium [Mass/Vol] 8.6 mg/dL 8.5-10.1 [facility] Serum or plasma creatinine m easurement (mass/volume)Ordered By: Haven Watson on 06-02-2023 Creatinine [Mass/Vol] 0.75 mg/dL 0.55-1.02 [facility] Comment on above: The validity of the calculated GFR & GFRAA in patients over 70 years has not been determined. Clinical correlation is essential. Serum or plasma thyroid stim ulating hormone (TSH) measurement (units/volume)Ordered By: Haven Watson on 06-02-2023 TSH Qn 1.20 uIU/mL 0.358-3.74 [facility] Serum or plasma urea nitroge n measurement (mass/volume)Ordered By: Haven Watson on 06-02-2023 Urea nitrogen [Mass/Vol] 12 mg/dL 7-18 [facility] Thin prep Papanicolaou smear with manual screeningOrdered By: Haven Watson on 06-02-2023 Thin prep Papanicolaou smear with manual screening 3.2 g/dL 3.2-5.0 [facility] Thin prep Papanicolaou smear with manual screening 98 U/L 15-37 [facility] Thin prep Papanicolaou smear with manual screening 3 5-15 [facility] Whole blood hemoglobin A1c/t otal hemoglobin ratio (mass fraction)Ordered By: Haven Watson on 06-02-2023 HbA1c (Bld) [Mass fraction] 6.1 % 3.8-5.6 [facility] Comment on above: Normal < 5.7 % Predi abetic 5.7 - 6.4 % Diabetic >or= 6.5 % Please note range changes. Absolute lymphocyte countOrd ered By: Andrés Domenico on 06-01-2023 Lymphocytes Auto (Unsp spec) [#/Vol] 3.79 10*3/uL 0.83-4.51 [facility] Activated partial thrombopla stin time (aPTT) in platelet poor plasma by coagulation aOrdered By: Andrés Acuña on 06-01-2023 aPTT Coag (PPP) [Time] 35.7 s 24.1-36.2 [facility] Automated lymphocyte count a s percentage of total leukocytesOrdered By: Andrés Acuña on 06-01-2023 Lymphocytes/100 WBC Auto (Unsp spec) 44.9 % 19-41 [facility] Basophil percentageOrdered B y: Andrés Acuña on 06-01-2023 Basophils/100 WBC (Bld) 0.8 % 0-1 [facility] Chloride [Moles/Vol] 106 mmol/L 98-107 [facility] Eosinophils/100 WBC (Bld) 3.7 % 0-5 [facility] Glucose [Mass/Vol] 162 mg/dL 74-106 [facility] Comment on above: Fasting Glucose resu lt greater than or equal to 126 mg/dL suggests DIABETES MELLITUS per A.D.A. criteria. Hemoglobin (Bld) [Mass/Vol] 14.3 g/dL 12.0-15.0 [facility] Monocytes/100 WBC (Bld) 9.0 % 0-10 [facility] Neutrophils (Bld) [#/Vol] 3.3 10*3/uL 2.0-7.7 [facility] Neutrophils/100 WBC (Bld) 39.5 % 47-70 [facility] Potassium [Moles/Vol] 3.6 mmol/L 3.5-5.1 [facility] Sodium [Moles/Vol] 138 mmol/L 136-145 [facility] WBC (Bld) [#/Vol] 8.4 10*3/uL 4.4-11.0 [facility] Determination of erythrocyte mean corpuscular volume (MCV)Ordered By: Andrés Acuña on 06-01-2023 MCV (RBC) [Entitic vol] 91.1 fL 81-99 [facility] Erythrocyte distribution wid th ratioOrdered By: Andrés Acuña on 06-01-2023 Erythrocyte distribution width (RBC) [Ratio] 12.9 % 11.6-14.6 [facility] Erythrocyte distribution wid th standard deviationOrdered By: Andrés Acuña on 06-01-2023 Erythrocyte distribution width (RBC) [Entitic vol] 43.1 fL 35.1-43.9 [facility] Hematocrit Auto (Bld) [Volum e fraction]Ordered By: Andrés Acuña on 06-01-2023 Hematocrit (Bld) [Volume fraction] 45.0 % 37-47 [facility] Immature granulocytes/100 WB C Auto (Bld)Ordered By: Andrés Acuña on 06-01-2023 Immature granulocytes/100 WBC (Bld) 2.100 % 0.0-0.9 [facility] Comment on above: IG% - Immature Granu locytes (promyelocytes, myelocytes and metamyelocytes) > 1% indicates that a LEFT SHIFT is Present. Laboratory - Chemistry and C hemistry - challengeOrdered By: Andrés Acuña on 06-01-2023 CO2 [Moles/Vol] 29.0 mmol/L 21.0-32.0 [facility] Urea nitrogen/Creatinine [Mass ratio] 15.8 mg/mg 10-20 [facility] Laboratory - Chemistry and C hemistry - challengeOrdered By: Haven Watson on 06-01-2023 Magnesium [Mass/Vol] 2.3 mg/dL 1.6-2.6 [facility] Laboratory - CoagulationOrde red By: Andrés Acuña on 06-01-2023 INR Coag (Bld) [Relative time] 0.9 {INR} [facility] PT Coag (PPP) [Time] 12.4 s 11.7-14.9 [facility] Laboratory - Hematology and Cell countsOrdered By: Andrés Acuña on 06-01-2023 MCH (RBC) [Entitic mass] 28.9 pg 27.0-32.0 [facility] MCHC (RBC) [Mass/Vol] 31.8 g/dL 32-36 [facility] Nucleated RBC/100 WBC (Bld) [Ratio] 0 % 0-5 [facility] Platelet mean volume (Bld) [Entitic vol] 8.7 fL 6.2-12.0 [facility] Platelets (Bld) [#/Vol] 238 10*3/uL 150-450 [facility] No Panel InformationOrdered By: Andrés Acuña on 06-01-2023 Estimated Creatinine Clearance Calc 54.74 ml/min [facility] Estimated GFR (MDRD) Amer 86 mL/min >60 [facility] Comment on above: GFR Calc Estimated GFR (MDRD) Non-Af Amer 71 mL/min >60 [facility] Comment on above: Non- GFR Calc Troponin I High Sensitivity 6 pg/mL 3.0-54.0 [facility] Comment on above: Please Note: New Jaz t Units and Gender Specific Reference Ranges. For more information see Policy Stat Procedure [place] High Sensitivity Troponin (TNIH) and attachments. RBC Auto (Bld) [#/Vol]Ordere d By: Andrés Acuña on 06-01-2023 RBC (Bld) [#/Vol] 4.94 10*6/uL 4.2-5.4 [facility] Serum or plasma calcium ryan urement (mass/volume)Ordered By: Andrés Acuña on 06-01-2023 Calcium [Mass/Vol] 9.6 mg/dL 8.5-10.1 [facility] Serum or plasma creatinine m easurement (mass/volume)Ordered By: Andrés Acuña on 06-01-2023 Creatinine [Mass/Vol] 0.82 mg/dL 0.55-1.02 [facility] Comment on above: The validity of the calculated GFR & GFRAA in patients over 70 years has not been determined. Clinical correlation is essential. Serum or plasma urea nitroge n measurement (mass/volume)Ordered By: Andrés Acuña on 06-01-2023 Urea nitrogen [Mass/Vol] 13 mg/dL 7-18 [facility] Thin prep Papanicolaou smear with manual screeningOrdered By: Andrés Acuña on 06-01-2023 Thin prep Papanicolaou smear with manual screening 3 5-15 [facility] Rosalina-Martel virus (EBV) vir al capsid antigen (VCA) IgG antibody assayOrdered By: Adrienne Cruz on 05-02-2023 EBV capsid IgG IA Ql (S donor) 484.0 U/mL 0.0-17.9 [facility] Comment on above: Negative <18.0 Equiv ocal 18.0 - 21.9 Positive >21.9 Serum Rosalina Martel virus cap sonia IgM antibody assay (units/volume)Ordered By: Adrienne Cruz on 05-02-2023 EBV capsid IgM Qn (S) [arb'U]/mL 0.0-35.9 [facility] Comment on above: Negative <36.0 Equiv ocal 36.0 - 43.9 Positive >43.9 Serum Rosalina Martel virus nuc lear IgG antibody assay (units/volume)Ordered By: Adrienne Cruz on 05-02-2023 EBV nuclear IgG Qn (S) < 18.0 U/mL 0.0-17.9 [facility] Comment on above: Negative <18.0 Equiv ocal 18.0 - 21.9 Positive >21.9 Thin prep Papanicolaou smear with manual screeningOrdered By: Adrienne Cruz on 05-02-2023 Thin prep Papanicolaou smear with manual screening Comment . [facility] Comment on above: EBV Interpretation C bathKey: Antibody Present + Antibody Absent -Interpretation VCA-IgM VCA-IgG EBNA-IgGNo previous infection/ - - -SusceptiblePrimary infection (new + + -or recent)Past Infection +or- + +See comment below* + - -*Results indicate infection with EBV at some time however cannot predict the timing of the infection since antibodies to EBNA usually develop after primary infection or, alternatively, approximately 5-10% of patients with EBV never develop antibodies to EBNA.Performed at: [address] [id number] Director: Maxi Jenkins PhD, Phone: [phone] Laboratory - Chemistry and C hemistry - challengeOrdered By: Adrienne Cruz on 04-28-2023 ALT [Catalytic activity/Vol] 143 U/L 13-56 [facility] Thin prep Papanicolaou smear with manual screeningOrdered By: Adrienne Cruz on 04-28-2023 Thin prep Papanicolaou smear with manual screening 75 U/L 15-37 [facility] Basophil percentageOrdered B y: Adrienne Cruz on 03-28-2023 Cholesterol [Mass/Vol] 146 mg/dL <200 [facility] Comment on above: <200 mg/dL Desirable 200-240 mg/dL Borderline >240 mg/dL High Risk Triglyceride [Mass/Vol] 197 mg/dL <199 [facility] Comment on above: The drugs N-Acetylcy steine and Metamizole may falsely depress this assay.Serum Triglycerides Reference Interval Normal <150 mg/dL Borderline high 150 - 199 mg/dL High 200 - 499 mg/dL Very High > or = 500 mg/dL Laboratory - Chemistry and C hemistry - challengeOrdered By: Adrienne Cruz on 03-28-2023 ALT [Catalytic activity/Vol] 132 U/L 13-56 [facility] T4 [Mass/Vol] 9.3 ug/dL 4.8-13.9 [facility] No Panel InformationOrdered By: Adrienne Cruz on 03-28-2023 Thyroid Stimulating Hormone (TSH) 1.79 uIU/mL 0.358-3.74 [facility] Serum or plasma cholesterol in HDL measurement (mass/volume)Ordered By: Adrienne Cruz on 03-28-2023 Cholesterol in HDL [Mass/Vol] 39 mg/dL >40 [facility] Comment on above: The drugs N-Acetylcy steine and Metamizole may falsely depress this assay. Reference Range HDL <40 mg/dL Low HDL Cholesterol HDL >or= 60 mg/dL High HDL Cholesterol Serum or plasma cholesterol in VLDL measurement (mass/volume)Ordered By: Adrienne Cruz on 03-28-2023 Cholesterol in VLDL [Mass/Vol] 39 mg/dL 5-40 [facility] Serum or plasma low density lipoprotein (LDL) cholesterol measurement (mass/volume)Ordered By: Adrienne Cruz on 03-28-2023 Cholesterol in LDL [Mass/Vol] 68 mg/dL 0-130 [facility] Thin prep Papanicolaou smear with manual screeningOrdered By: Adrienne Cruz on 03-28-2023 Thin prep Papanicolaou smear with manual screening 78 U/L 15 [facility] Absolute lymphocyte counton 03-15-2022 Lymphocytes Auto (Unsp spec) [#/Vol] 1.76 10*3/uL 0.83-4.51 [facility] Work Phone: Basophil percentageon 2021 Basophils/100 WBC (Bld) 0.7 % 0-1 [facility] Work Phone: Bilirubin [Mass/Vol] 1.30 mg/dL 0.20-1.00 [facility] Work Phone: Comment on above: For patients on eltr ombopag therapy, use of Dimension [place] TBIL is not recommended. Chloride [Moles/Vol] 104 mmol/L 98-107 [facility] Work Phone: Cholesterol [Mass/Vol] 167 mg/dL <200 [facility] Work Phone: Comment on above: <200 mg/dL Desirable 200-240 mg/dL Borderline >240 mg/dL High Risk Eosinophils/100 WBC (Bld) 3.5 % 0-5 [facility] Work Phone: Glucose [Mass/Vol] 91 mg/dL 74-106 [facility] Work Phone: Neutrophils (Bld) [#/Vol] 4.3 10*3/uL 2.0-7.7 [facility] Work Phone: Neutrophils/100 WBC (Bld) 61.0 % 47-70 [facility] Work Phone: Potassium [Moles/Vol] 4.2 mmol/L 3.5-5.1 [facility] Work Phone: Protein [Mass/Vol] 6.3 g/dL 6.4-8.2 [facility] Work Phone: Sodium [Moles/Vol] 138 mmol/L 136-145 [facility] Work Phone: Triglyceride [Mass/Vol] 226 mg/dL <199 [facility] Work Phone: Comment on above: The drugs N-Acetylcy steine and Metamizole may falsely depress this assay.Serum Triglycerides Reference Interval Normal <150 mg/dL Borderline high 150 - 199 mg/dL High 200 - 499 mg/dL Very High > or = 500 mg/dL WBC (Bld) [#/Vol] 7.1 10*3/uL 4.4-11.0 [facility] Work Phone: Blood erythrocytes count (nu mber/volume)on 03-15-2022 RBC (Bld) [#/Vol] 4.67 10*6/uL 4.2-5.4 [facility]: Blood hemoglobin measurement (mass/volume)on 03-15-2022 Hemoglobin (Bld) [Mass/Vol] 13.8 g/dL 12.0-15.0 [facility] Work Phone: Blood lymphocytes/100 leukoc yteson 03-15-2022 Lymphocytes/100 WBC (Bld) 24.9 % 19-41 [facility] Work Phone: Blood monocytes/100 leukocyt eson 03-15-2022 Monocytes/100 WBC (Bld) 9.6 % 0-10 [facility] Work Phone: Blood platelet mean volumeon 03-15-2022 Platelet mean volume (Bld) [Entitic vol] 9.1 fL 6.2-12.0 [facility] Work Phone: Determination of erythrocyte mean corpuscular volume (MCV)on 03-15-2022 MCV (RBC) [Entitic vol] 90.4 fL 81-99 [facility] Work Phone: Hematocrit Auto (Bld) [Volum e fraction]on 03-15-2022 Hematocrit (Bld) [Volume fraction] 42.2 % 37-47 [facility] Work Phone: Laboratory - Chemistry and C hemistry - challengeon 03-15-2022 ALP [Catalytic activity/Vol] 106 U/L 45-117 [facility] Work Phone: ALT [Catalytic activity/Vol] 51 U/L 13-56 [facility] Work Phone: CO2 [Moles/Vol] 28.0 mmol/L 21.0-32.0 [facility] Work Phone: Globulin (S) [Mass/Vol] 2.8 g/dL 2.2-4.2 [facility] Work Phone: Urea nitrogen/Creatinine [Mass ratio] 23.7 mg/mg 10-20 [facility] Work Phone: Laboratory - Hematology and Cell countson 03-15-2022 Erythrocyte distribution width (RBC) [Entitic vol] 44.7 fL 35.1-43.9 [facility] Work Phone: Erythrocyte distribution width (RBC) [Ratio] 13.5 % 11.6-14.6 [facility] Work Phone: Immature granulocytes/100 WBC (Bld) 0.300 % 0.0-0.9 [facility] Work Phone: Comment on above: IG% - Immature Granu locytes (promyelocytes, myelocytes and metamyelocytes) > 1% indicates that a LEFT SHIFT is Present. MCH (RBC) [Entitic mass] 29.6 pg 27.0-32.0 [facility] Work Phone: Nucleated RBC/100 WBC (Bld) [Ratio] 0 % 0-5 [facility] Work Phone: MCHC Auto (RBC) [Mass/Vol]on 03-15-2022 MCHC (RBC) [Mass/Vol] 32.7 g/dL 32-36 [facility] Work Phone: No Panel Informationon 03-15 Estimated GFR (MDRD) Amer 117 mL/min >60 [facility] Work Phone: Comment on above: GFR Calc Estimated GFR (MDRD) Non-Af Amer 96 mL/min >60 [facility] Work Phone: Comment on above: Non- GFR Calc Thyroid Stimulating Hormone (TSH) 1.02 uIU/mL 0.358-3.74 [facility] Work Phone: Vitamin D 25-Hydroxy 28.9 ng/mL [facility] Work Phone: Comment on above: Vitamin D 25(OH) Sta tus Range Deficiency <20 ng/mL (50nmol/L) Insufficiency 20 - 30 ng/mL (50 - 75 nmol/L) Sufficiency 30 - 100 ng/mL (75 - 250 nmol/L) Toxicity >100 ng/mL (>250 nmol/L) Platelets bldon 03-15-2022 Platelets (Bld) [#/Vol] 262 10*3/uL 150-450 [facility] Work Phone: Serum or plasma albumin ryan urement (mass/volume)on 03-15-2022 Albumin [Mass/Vol] 3.5 g/dL 3.2-5.0 [facility] Work Phone: Serum or plasma albumin/glob ulin mass ratioon 03-15-2022 Albumin/Globulin [Mass ratio] 1.2 {ratio} 0.9-2.4 [facility] Work Phone: Serum or plasma calcium ryan urement (mass/volume)on 03-15-2022 Calcium [Mass/Vol] 9.0 mg/dL 8.5-10.1 [facility] Work Phone: Serum or plasma cholesterol in HDL measurement (mass/volume)on 03-15-2022 Cholesterol in HDL [Mass/Vol] 43 mg/dL >40 [facility] Work Phone: Comment on above: The drugs N-Acetylcy steine and Metamizole may falsely depress this assay. Reference Range HDL <40 mg/dL Low HDL Cholesterol HDL >or= 60 mg/dL High HDL Cholesterol Serum or plasma cholesterol in VLDL measurement (mass/volume)on 03-15-2022 Cholesterol in VLDL [Mass/Vol] 45 mg/dL 5-40 [facility] Work Phone: Serum or plasma creatinine m easurement (mass/volume)on 03-15-2022 Creatinine [Mass/Vol] 0.63 mg/dL 0.55-1.02 [facility] Work Phone: Comment on above: The validity of the calculated GFR & GFRAA in patients over 70 years has not been determined. Clinical correlation is essential. Serum or plasma low density lipoprotein (LDL) cholesterol measurement (mass/volume)on 03-15-2022 Cholesterol in LDL [Mass/Vol] 79 mg/dL 0-130 [facility] Work Phone: Serum or plasma urea nitroge n measurement (mass/volume)on 03-15-2022 Urea nitrogen [Mass/Vol] 15 mg/dL 7-18 [facility] Work Phone: Thin prep Papanicolaou smear with manual screeningon 03-15-2022 Thin prep Papanicolaou smear with manual screening 28 U/L 15-37 [facility] Work Phone: Thin prep Papanicolaou smear with manual screening 6 5-15 [facility] Work Phone: Absolute lymphocyte counton 11-16-2021 Lymphocytes Auto (Unsp spec) [#/Vol] 1.88 10*3/uL 0.83-4.51 [facility] Work Phone: Basophil percentageon 2021 Basophils/100 WBC (Bld) 0.6 % 0-1 [facility] Work Phone: Chloride [Moles/Vol] 106 mmol/L 98-107 [facility] Work Phone: Cholesterol [Mass/Vol] 145 mg/dL <200 [facility] Work Phone: Comment on above: <200 mg/dL Desirable 200-240 mg/dL Borderline >240 mg/dL High Risk Eosinophils/100 WBC (Bld) 3.7 % 0-5 [facility] Work Phone: Glucose [Mass/Vol] 71 mg/dL 74-106 [facility] Work Phone: Neutrophils (Bld) [#/Vol] 3.7 10*3/uL 2.0-7.7 [facility] Work Phone: Neutrophils/100 WBC (Bld) 57.5 % 47-70 [facility] Work Phone: Potassium [Moles/Vol] 3.9 mmol/L 3.5-5.1 [facility] Work Phone: Sodium [Moles/Vol] 139 mmol/L 136-145 [facility] Work Phone: Triglyceride [Mass/Vol] 130 mg/dL <199 [facility] Work Phone: Comment on above: The drugs N-Acetylcy steine and Metamizole may falsely depress this assay.Serum Triglycerides Reference Interval Normal <150 mg/dL Borderline high 150 - 199 mg/dL High 200 - 499 mg/dL Very High > or = 500 mg/dL WBC (Bld) [#/Vol] 6.4 10*3/uL 4.4-11.0 [facility] Work Phone: Blood erythrocytes count (nu mber/volume)on 11-16-2021 RBC (Bld) [#/Vol] 4.93 10*6/uL 4.2-5.4 [facility] Work Phone: Blood hemoglobin measurement (mass/volume)on 11-16-2021 Hemoglobin (Bld) [Mass/Vol] 14.1 g/dL 12.0-15.0 [facility] Work Phone: Blood lymphocytes/100 leukoc yteson 11-16-2021 Lymphocytes/100 WBC (Bld) 29.2 % 19-41 [facility] Work Phone: Blood monocytes/100 leukocyt eson 11-16-2021 Monocytes/100 WBC (Bld) 8.5 % 0-10 [facility] Work Phone: Blood platelet mean volumeon 11-16-2021 Platelet mean volume (Bld) [Entitic vol] 9.6 fL 6.2-12.0 [facility] Work Phone: Determination of erythrocyte mean corpuscular volume (MCV)on 08-08-2022 MCV (RBC) [Entitic vol] 90.9 fL 81-99 [facility] Work Phone: Hematocrit Auto (Bld) [Volum e fraction]on 11-16-2021 Hematocrit (Bld) [Volume fraction] 44.8 % 37-47 [facility] Work Phone: Laboratory - Chemistry and C hemistry - challengeon 11-16-2021 ALT [Catalytic activity/Vol] 28 U/L 13-56 [facility] Work Phone: CO2 [Moles/Vol] 29.0 mmol/L 21.0-32.0 [facility] Work Phone: Urea nitrogen/Creatinine [Mass ratio] 20.7 mg/mg 10-20 [facility] Work Phone: Laboratory - Hematology and Cell countson 11-16-2021 Erythrocyte distribution width (RBC) [Entitic vol] 41.5 fL 35.1-43.9 [facility] Work Phone: Erythrocyte distribution width (RBC) [Ratio] 12.6 % 11.6-14.6 [facility] Work Phone: Immature granulocytes/100 WBC (Bld) 0.500 % 0.0-0.9 [facility] Work Phone: Comment on above: IG% - Immature Granu locytes (promyelocytes, myelocytes and metamyelocytes) > 1% indicates that a LEFT SHIFT is Present. MCH (RBC) [Entitic mass] 28.6 pg 27.0-32.0 [facility] Work Phone: Nucleated RBC/100 WBC (Bld) [Ratio] 0 % 0-5 [facility] Work Phone: MCHC Auto (RBC) [Mass/Vol]on 11-16-2021 MCHC (RBC) [Mass/Vol] 31.5 g/dL 32-[address] [facility] Work Phone: No Panel Informationon 11-16 Estimated GFR (MDRD) Amer 100 mL/min >60 [facility] Work Phone: Comment on above: GFR Calc Estimated GFR (MDRD) Non-Af Amer 83 mL/min >60 [facility] Work Phone: Comment on above: Non- GFR Calc Thyroid Stimulating Hormone (TSH) 3.78 uIU/mL 0.358-3.74 [facility] Work Phone: Vitamin D 25-Hydroxy 28.8 ng/mL [facility] Work Phone: Comment on above: Vitamin D 25(OH) Sta tus Range Deficiency <20 ng/mL (50nmol/L) Insufficiency 20 - 30 ng/mL (50 - 75 nmol/L) Sufficiency 30 - 100 ng/mL (75 - 250 nmol/L) Toxicity >100 ng/mL (>250 nmol/L) Platelets bldon 11-16-2021 Platelets (Bld) [#/Vol] 271 10*3/uL 150-450 [facility] Work Phone: Serum or plasma calcium ryan urement (mass/volume)on 11-16-2021 Calcium [Mass/Vol] 9.0 mg/dL 8.5-10.1 [facility] Work Phone: Serum or plasma cholesterol in HDL measurement (mass/volume)on 11-16-2021 Cholesterol in HDL [Mass/Vol] 48 mg/dL >40 [facility] Work Phone: Comment on above: The drugs N-Acetylcy steine and Metamizole may falsely depress this assay. Reference Range HDL <40 mg/dL Low HDL Cholesterol HDL >or= 60 mg/dL High HDL Cholesterol Serum or plasma cholesterol in VLDL measurement (mass/volume)on 11-16-2021 Cholesterol in VLDL [Mass/Vol] 26 mg/dL 5-40 [facility] Work Phone: Serum or plasma creatinine m easurement (mass/volume)on 11-16-2021 Creatinine [Mass/Vol] 0.72 mg/dL 0.55-1.02 [facility] Work Phone: Comment on above: The validity of the calculated GFR & GFRAA in patients over 70 years has not been determined. Clinical correlation is essential. Serum or plasma low density lipoprotein (LDL) cholesterol measurement (mass/volume)on 11-16-2021 Cholesterol in LDL [Mass/Vol] 71 mg/dL 0-130 [facility] Work Phone: Serum or plasma urea nitroge n measurement (mass/volume)on 11-16-2021 Urea nitrogen [Mass/Vol] 15 mg/dL 7-18 [facility] Work Phone: Thin prep Papanicolaou smear with manual screeningon 11-16-2021 Thin prep Papanicolaou smear with manual screening 23 U/L 15-37 [facility] Work Phone: Thin prep Papanicolaou smear with manual screening 4 5-15 [facility] Work Phone: .Auto Diffon 08-21-2020 Basophil, Absolute 0.10 10 3/mcL Normal 0.00-0.19 [facility] ([place]) Comment on above: Performed By: #### C BC, ADIFF, ANEU, BMP, MG, TSH #### [place] [address] #### GFR #### [address] [address] Basophils/100 WBC (Bld) 0.6 % Normal 0.0-2.5 [facility] ([place]) Comment on above: Performed By: #### C BC, ADIFF, ANEU, BMP, MG, TSH #### [address] [address] #### GFR #### [address] [address] Eosinophil, Absolute 0.10 10 3/mcL Normal 0.00-0.40 [facility] ([place]) Comment on above: Performed By: #### C BC, ADIFF, ANEU, BMP, MG, TSH #### [place] [address] #### GFR #### [address] [address] Eosinophils/100 WBC (Bld) 0.8 % Normal 0.0-7.0 [facility] ([place] Comment on above: Performed By: #### C BC, ADIFF, ANEU, BMP, MG, TSH #### [address] [address] #### GFR #### [address] [address] Lymphocyte, Absolute 1.50 10 3/mcL Normal 0.77-3.85 [facility] ([place]) Comment on above: Performed By: #### C BC, ADIFF, ANEU, BMP, MG, TSH #### [place] [address] #### GFR #### [address] [address] Lymphocytes/100 WBC (Bld) 15.6 % Normal 10.0-50.0 [facility] ([place] Comment on above: Performed By: #### C BC, ADIFF, ANEU, BMP, MG, TSH #### [place] [address] #### GFR #### [address] [address] Monocyte, Absolute 0.70 10 3/mcL Normal 0.15-1.00 [facility] ([place] Comment on above: Performed By: #### C BC, ADIFF, ANEU, BMP, MG, TSH #### [place] [address] #### GFR #### [address] [address] Monocytes/100 WBC (Bld) 7.3 % Normal 1.7-13.0 [facility] ([place] Comment on above: Performed By: #### C BC, ADIFF, ANEU, BMP, MG, TSH #### [place] [address] #### GFR #### [address] [address] Neutrophils/100 WBC (Bld) 75.7 % Normal 37.0-80.0 [facility] ([place] Comment on above: Performed By: #### C BC, ADIFF, ANEU, BMP, MG, TSH #### Gurvinder [address] [address] #### GFR #### [address] [address] .GFRon 08-21-2020 GFR 102 ml/min/1.73sqm Normal [facility] ([place]) Comment on above: Result Comment: GFR Population mean for , Non- Americans Ages 20-29 = 116 mL/min/1.73 sq.m. Ages 30-39 = 107 mL/min/1.73 sq.m. Ages 40-49 = 99 mL/min/1.73 sq.m. Ages 50-59 = 93 mL/min/1.73 sq.m. Ages 60-69 = 85 mL/min/1.73 sq.m. Ages 70+ = 75 mL/min/1.73 sq.m. Chronic Kidney Disease: Less than 60 mL/min/1.73 square meters End Stage Renal Disease: Less than 15 mL/min/1.73 square meters Performed By: #### C BC, ADIFF, ANEU, BMP, MG, TSH #### Gurvinder [address] [address] #### GFR #### [address] [address] GFR Non- 84 ml/min/1.73sqm Normal [facility] ([place] Comment on above: Result Comment: GFR Population mean for , Non- Americans Ages 20-29 = 116 mL/min/1.73 sq.m. Ages 30-39 = 107 mL/min/1.73 sq.m. Ages 40-49 = 99 mL/min/1.73 sq.m. Ages 50-59 = 93 mL/min/1.73 sq.m. Ages 60-69 = 85 mL/min/1.73 sq.m. Ages 70+ = 75 mL/min/1.73 sq.m. Chronic Kidney Disease: Less than 60 mL/min/1.73 square meters End Stage Renal Disease: Less than 15 mL/min/1.73 square meters Performed By: #### C BC, ADIFF, ANEU, BMP, MG, TSH #### [place] [address] #### GFR #### [place] [address] .NEUABSon 08-21-2020 Neutrophil, Absolute 7.40 10 3/mcL High 2.85-6.16 [facility] ([place] Comment on above: Performed By: #### C BC, ADIFF, ANEU, BMP, MG, TSH #### [place] [address] #### GFR #### [place] [address] .Urinalysis Microscopic (AO) on 08-21-2020 UA Glitter cells LOADED Abnormal [facility] ([place]) Comment on above: Performed By: #### U AMICAO, UA #### [place] [address] UA RBC 0-5 Abnormal None Seen [facility] ([place] Comment on above: Performed By: #### U AMICAO, UA #### [address] [address] UA Squam Epithelial 0-5 Abnormal None Seen [facility] ([place]) Comment on above: Performed By: #### U AMICAO, UA #### [place] [address] UA Transitional Epithelial 0-5 Abnormal [facility] ([place] Comment on above: Performed By: #### U AMICAO, UA #### [place] [address] UA WBC 10-15 Abnormal None Seen [facility] ([place] Comment on above: Performed By: #### U AMICAO, UA #### [address] [address] BMPon 08-21-2020 BUN/Creatinine Ratio 25 ratio Normal 7-27 [facility] ([place]) Comment on above: Performed By: #### C BC, ADIFF, ANEU, BMP, MG, TSH #### [address] [address] #### GFR #### [address] [address] Calcium [Mass/Vol] 9.1 mg/dL Normal 8.4-10.2 [facility] ([place]) Comment on above: Performed By: #### C BC, ADIFF, ANEU, BMP, MG, TSH #### [address] [address] #### GFR #### [address] [address] Chloride [Moles/Vol] 98 mmol/L Normal 98-107 [facility] ([place]) Comment on above: Performed By: #### C BC, ADIFF, ANEU, BMP, MG, TSH #### [place] [address] #### GFR #### [address] [address] CO2 [Moles/Vol] 29 mmol/L Normal 23-31 [facility] ([place] Comment on above: Performed By: #### C BC, ADIFF, ANEU, BMP, MG, TSH #### [address] [address] #### GFR #### [place] [address] Creatinine [Mass/Vol] 0.68 mg/dL Normal 0.55-1.02 [facility] ([place] Comment on above: Performed By: #### C BC, ADIFF, ANEU, BMP, MG, TSH #### [address] [address] #### GFR #### [address] [address] Electrolyte Balance 7.0 mEq/L Normal [facility] ([place]) Comment on above: Performed By: #### C BC, ADIFF, ANEU, BMP, MG, TSH #### [address] [address] #### GFR #### [address] [address] Glucose [Mass/Vol] 97 mg/dL Normal 83-110 [facility] ([place]) Comment on above: Performed By: #### C BC, ADIFF, ANEU, BMP, MG, TSH #### [address] [address] #### GFR #### [address] [address] Potassium [Moles/Vol] 4.7 mmol/L Normal 3.5-5.1 [facility] ([place]) Comment on above: Performed By: #### C BC, ADIFF, ANEU, BMP, MG, TSH #### [place] [address] #### GFR #### [address] [address] Sodium [Moles/Vol] 134 mmol/L Low 136-145 [facility] ([place]) Comment on above: Performed By: #### C BC, ADIFF, ANEU, BMP, MG, TSH #### [place] [address] #### GFR #### [address] [address] Urea nitrogen [Mass/Vol] 17 mg/dL Normal 7-18 [facility] ([place] Comment on above: Performed By: #### C BC, ADIFF, ANEU, BMP, MG, TSH #### [place] [address] #### GFR #### [address] [address] CBCon 08-21-2020 Erythrocyte distribution width (RBC) [Ratio] 13.0 % Normal 11.5-14.5 [facility] ([place] Comment on above: Performed By: #### C BC, ADIFF, ANEU, BMP, MG, TSH #### [place] [address] #### GFR #### [place] [address] Hematocrit (Bld) [Volume fraction] 43.2 % Normal 37.0-47.0 [facility] ([place] Comment on above: Performed By: #### C BC, ADIFF, ANEU, BMP, MG, TSH #### [address] [address] #### GFR #### [place] [address] Hgb 14.5 G/dL Normal 12.0-16.0 [facility] ([place] Comment on above: Performed By: #### C BC, ADIFF, ANEU, BMP, MG, TSH #### [place] [address] #### GFR #### [place] [address] MCH (RBC) [Entitic mass] 30.0 pg Normal 27.0-31.2 [facility] ([place] Comment on above: Performed By: #### C BC, ADIFF, ANEU, BMP, MG, TSH #### [place] [address] #### GFR #### [place] [address] MCHC 33.6 G/dL Normal 33.0-37.0 [facility] ([place] Comment on above: Performed By: #### C BC, ADIFF, ANEU, BMP, MG, TSH #### [place] [address] #### GFR #### [place] [address] MCV (RBC) [Entitic vol] 89.5 fL Normal 80.0-94.0 [facility] ([place] Comment on above: Performed By: #### C BC, ADIFF, ANEU, BMP, MG, TSH #### [place] [address] #### GFR #### [place] [address] Platelet 322 10 3/mcL Normal 130-400 [facility] ([place] Comment on above: Performed By: #### C BC, ADIFF, ANEU, BMP, MG, TSH #### [place] [address] #### GFR #### [place] [address] Platelet mean volume (Bld) [Entitic vol] 6.8 fL Low 7.4-10.4 [facility] ([place] Comment on above: Performed By: #### C BC, ADIFF, ANEU, BMP, MG, TSH #### [place] [address] #### GFR #### [place] [address] RBC 4.83 10 6/mcL Normal 4.20-5.40 [facility] ([place] Comment on above: Performed By: #### C BC, ADIFF, ANEU, BMP, MG, TSH #### [place] [address] #### GFR #### [place] [address] WBC 9.80 10 3/mcL Normal 4.60-10.80 [facility] ([place] Comment on above: Performed By: #### C BC, ADIFF, ANEU, BMP, MG, TSH #### [place] [address] #### GFR #### [place] [address] MGon 08-21-2020 Magnesium [Mass/Vol] 2.1 mg/dL Normal 1.8-2.4 [facility] ([place]) Comment on above: Performed By: #### C BC, ADIFF, ANEU, BMP, MG, TSH #### [place] [address] #### GFR #### [place] [address] TSHon 08-21-2020 TSH Qn 3.00 m[IU]/L Normal 0.36-3.74 [facility] ([place] Comment on above: Performed By: #### C BC, ADIFF, ANEU, BMP, MG, TSH #### [place] [address] #### GFR #### [facility] [address] [place] [address] UAon 08-21-2020 Color (U) Yellow Normal [facility] ([place] Comment on above: Performed By: #### U AMICAO, UA #### [place] [address] Glucose (U) [Mass/Vol] Negative Normal Negative [facility] ([place]) Comment on above: Performed By: #### U AMICAO, UA #### [place] [address] Ketones Ql (U) Negative Normal Negative [facility] ([place] Comment on above: Performed By: #### U AMICAO, UA #### [place] [address] UA Appear Cloudy Abnormal Clear [facility] ([place] Comment on above: Performed By: #### U AMICAO, UA #### [place] [address] UA Blood Trace Abnormal Negative [facility] ([place] Comment on above: Performed By: #### U AMICAO, UA #### [place] [address] UA Leuk Est Small Abnormal Negative [facility] ([place] Comment on above: Performed By: #### U AMICAO, UA #### [place] [address] UA Nitrite Negative Normal Negative [facility] ([place] Comment on above: Performed By: #### U AMICAO, UA #### Gurvinder [place] [id number] UA pH 7.0 Normal 5.0 - 8.0 [facility] ([place] Comment on above: Performed By: #### U AMICAO, UA #### Gurvinder [address] [address] UA Protein Negative Normal Negative [facility] ([place] Comment on above: Performed By: #### Evan PATEL UA #### Gurvinder [place] [id number] [place], [place] [address] UA Spec Grav 1.020 Normal 1.015-1.025 [facility] ([place] Comment on above: Performed By: #### Evan PATEL UA #### Gurvinder [address] [address] UA Specimen Type Clean Catch Normal [facility] ([place] Comment on above: Performed By: #### Evan PATEL UA #### Gurvinder [address] [address] UA Urobilinogen 0.2 E.U./dL Normal 0.2-1.0 [facility] ([place] Comment on above: Performed By: #### Evan PATEL UA #### Gurvinder [address] [address] Urobilinogen (U) [Mass/Vol] Negative Normal Negative [facility] ([place] Comment on above: Performed By: #### Evan PATEL UA #### Gurvinder [address] [address] CERV OTHER 4V AP/LAT/OBLon 1 CERV OTHER 4V AP/LAT/OBL Performed at [facility] APPROVED BY: Raghu Ramos MD EXAM TITLE: CERVICAL SPINE 5 VIEWS DATE: 02/08/2017 11:30 COMPARISON: None. CLINICAL INDICATION/HISTORY: Neck pain. TECHNIQUE: AP, lateral, odontoid, and bilateral oblique views were obtained of the cervical spine. FINDINGS: No evidence of acute cervical spine fracture or destructive osseous lesion.No definite prevertebral soft tissue swelling.Multilevel cervical degenerative disc disease.Multilevel bilateral facet joint and/or cuboid joint hypertrophy.C4-C5 minimal spondylolisthesis with mild to moderate disc space narrowing and endplate osteophyte formation. Bilateral neural foraminal narrowing.C5-C6 minimal retrolisthesis with moderate to severe disc space narrowing and endplate osteophyte formation. Bilateral neural foraminal narrowing.C6-C7 mild to moderate disc space narrowing. Right neural foraminal narrowing. IMPRESSION: Multilevel cervical degenerative disc disease and degenerative neural foraminal narrowing as described above. Normal [facility] Office Visit: UC: Right Shou lder/ Chest Wall contusionon 12-02-2016 Tobacco smoking status Never Invalid Interpretation Code [facility] Work Phone: Tobacco use status [facility] Never smoker Invalid Interpretation Code [facility] Work Phone: Office Visit: UC: L lymph sw ellingon 08-13-2016 Tobacco smoking status Never Invalid Interpretation Code [facility] Work Phone: Tobacco use status [facility] Never smoker Invalid Interpretation Code [facility] Work Phone: Vital Signs Date Time Vital Sign Value Performing Clinician Faci lity 06-02-2023 14:36-0500 Body mass index (BMI) [Ratio] 30.2 kg/m2 Dr. Adrienne Cruz Work Phone: [facility] 06-02-2023 13:30-0500 Body temperature 98 [degF] Dr. Adrienne Cruz Work Phone: [facility] 06-02-2023 13:30-0500 Diastolic blood pressure 83 mm[Hg] Dr. Adrienne Cruz Work Phone: [facility] 06-02-2023 13:30-0500 Heart rate 73 /min Dr. Adrienne Cruz Work Phone: [facility] 06-02-2023 13:30-0500 Respiratory rate 17 /min Dr. Adrienne Cruz Work Phone: [facility] 06-02-2023 13:30-0500 SaO2% (BldA) [Mass fraction] 94 % Dr. Adrienne Cruz Work Phone: [facility] 06-02-2023 13:30-0500 Systolic blood pressure 133 mm[Hg] Dr. Adrienne Cruz Work Phone: [facility] 06-02-2023 11:31-0500 Body height 162.[address] Adrienne Cruz Work Phone: [facility] 06-02-2023 11:31-0500 Body weight 79.[address] Adrienne Cruz Work Phone: [facility] 06-01-2023 20:54-0500 Diastolic blood pressure 70 mm[Hg] [facility] 06-01-2023 20:54-0500 Heart rate 62 /min [facility] 06-01-2023 20:54-0500 Inhaled oxygen flow rate 2 L/min [facility] 06-01-2023 20:54-0500 Respiratory rate 16 /min [facility] 06-01-2023 20:54-0500 SaO2% (BldA) [Mass fraction] 99 % [facility] 06-01-2023 20:54-0500 Systolic blood pressure 122 mm[Hg] [facility] 06-01-2023 19:46-0500 Body height 160.02 cm [facility] 06-01-2023 19:46-0500 Body mass index (BMI) [Ratio] 31.1 kg/m2 [facility] 06-01-2023 19:46-0500 Body weight 79.83 kg [facility] 06-01-2023 19:24-0500 Body temperature 95.6 [degF] [facility] 12-02-2016 13:01-0400 Body height 162.56 cm Priscilla Bower [facility] Work Phone: 12-02-2016 13:01-0400 Body mass index (BMI) [Ratio] 24.2 kg/m2 Priscilla Bower LPN [facility] Work Phone: 12-02-2016 13:01-0400 Body temperature 98.2 [degF] Priscilla Bower LPN [facility] Work Phone: 12-02-2016 13:01-0400 Body weight 63.96 kg Priscilla Bower LPN [facility] Work Phone: 12-02-2016 13:01-0400 Diastolic blood pressure 74 mm[Hg] Priscilla Bower LPN [facility] Work Phone: 12-02-2016 13:01-0400 Heart rate 72 /min Priscilla Bower LPN [facility] Work Phone: 12-02-2016 13:01-0400 Respiratory rate 12 /min Priscilla Bower LPN [facility] Work Phone: 12-02-2016 13:01-0400 Systolic blood pressure 154 mm[Hg] Priscilla Bower LPN [facility] Work Phone: 08-13-2016 14:52-0400 Body height 162.56 cm Michelle Julien [employer] Work Phone: [facility] Work Phone: 08-13-2016 14:52-0400 Body mass index (BMI) [Ratio] 25.06 kg/m2 Michelle Boltonar [employer] Work Phone: [facility] Work Phone: 08-13-2016 14:52-0400 Body temperature 98.9 [degF] Michelle Boltonar [employer] Work Phone: [facility] Work Phone: 08-13-2016 14:52-0400 Body weight 66.23 kg Michelle Boltonar [employer] Work Phone: [facility] Work Phone: 08-13-2016 14:52-0400 Diastolic blood pressure 90 mm[Hg] Michelle Cogar [employer] Work Phone: [facility] Work Phone: 08-13-2016 14:52-0400 Heart rate 83 /min Michelle Cogar [employer] Work Phone: [facility] Work Phone: 08-13-2016 14:52-0400 Respiratory rate 16 /min Michelle Cogar [employer] Work Phone: [facility] Work Phone: 08-13-2016 14:52-0400 SaO2% (BldA) [Mass fraction] 97 % Michelle Wily CONTRERAS Work Phone: [facility] Work Phone: 08-13-2016 14:52-0400 Systolic blood pressure 142 mm[Hg] Michelle Julien LPN Work Phone: [facility] Work Phone: Encounters Encounter Date Encounter Type Care Provider Facility Start: 12-06-2024 ambulatory Adrienne Cruz Facility: [facility] Start: 04-16-2024 End: 04-16-2024 ambulatory Adrienne Cruz Facility:[facility] Start: 06-28-2023 End: 06-28-[address] Adrienne Cruz Work Phone: [facility] Work Phone: Start: 06-28-2023 End: 06-28-[address] Adrienne Cruz Work Phone: [facility] Work Phone: Start: 06-15-2023 End: 06-15-[address] Adrienne Cruz Work Phone: [facility] Work Phone: Start: 06-02-2023 Non-patient / Non-visit Dr. Hugo Cruz Work Phone: [facility] Work Phone: Start: 06-02-2023 Non-patient / Non-visit Dr. Hugo Cruz Work Phone: [facility] Start: 06-01-2023 End: 06-02-2023 Evaluation and management of inpatient [facility] Work Phone: Start: 06-01-2023 End: 06-02-[address] Adrienne Cruz Work Phone: [facility] Work Phone: Start: 05-16-2023 End: 05-16-2023 Patient encounter procedure [facility] Work Phone: Start: 05-02-2023 End: 05-02-2023 ambulatory [facility] Work Phone: Start: 05-02-2023 End: 05-02-2023 Departed Referred [facility] Work Phone: Start: 05-02-2023 Registered Referred [facility] Work Phone: Start: 04-28-2023 End: 04-28-2023 ambulatory [facility] Work Phone: Start: 04-28-2023 End: 04-28-2023 Departed Referred [facility] Work Phone: Start: 03-28-2023 End: 03-28-2023 Patient encounter procedure [facility] Start: 03-15-2022 End: 03-15-2022 ambulatory [facility] Work Phone: Start: 03-15-2022 End: 03-15-2022 Patient encounter procedure [facility] Start: 11-16-2021 End: 11-16-2021 Patient encounter procedure [facility] Procedures Date Procedure Procedure Detail Performing Clinician Start: 06-02-2023 MRI of brain without contrast Dr. Adrienne Cruz Work Phone: Start: 06-02-2023 Plain chest X-ray Dr. Richard Cruz Work Phone: Start: 06-01-2023 Plain chest X-ray Start: 06-01-2023 CT angiography of he ad and neck Start: 06-01-2023 CT of head without contrast Start: 05-16-2023 Ultrasonography of abdomen Start: 12-02-2016 End: 12-02-2016 Documentation of current medications Priscilla Bower LPN Start: 08-13-2016 End: 08-13-2016 Documentation of current medications Michelle Wily CONTRERAS Work Phone: Plan of Treatment Date Care Activity Detail Author Start: 06-02-2023 Patient discharge [facility] Start: 06-02-2023 Plain chest X-ray Chest PA and Lateral [facility] Start: 06-02-2023 XR Chest PA and Lateral [facility] Start: 06-01-2023 Following clinical pathway protocol [facility] Start: 06-01-2023 Aspiration precautions [facility] Start: 06-01-2023 Assessment of risk of venous thromboembolism [facility] Start: 06-01-2023 Cardiac monitoring [facility] Start: 06-01-2023 Catheterization of vein [facility] Start: 06-01-2023 Continuous pulse oximetry [facility] Start: 06-01-2023 Elevation of head of bed [facility] Start: 06-01-2023 Exercises [facility] Start: 06-01-2023 Fall prevention [facility] Start: 06-01-2023 Implementation of planned interventions [facility] Start: 06-01-2023 Inhalation therapy procedure [facility] Start: 06-01-2023 Insertion of catheter into peripheral vein [facility] Start: 06-01-2023 Introduction of urinary catheter [facility] Start: 06-01-2023 Measuring intake and output [facility] Start: 06-01-2023 Notification of physician [facility] Start: 06-01-2023 Oxygen therapy [facility] Start: 06-01-2023 Patient referral to dietitian [facility] Start: 06-01-2023 Providing care according to standard [facility] Start: 06-01-2023 Provision of activity privileges [facility] Start: 06-01-2023 Referral to occupational therapist [facility] Start: 06-01-2023 Referral to service [facility] Start: 06-01-2023 Speech therapy assessment [facility] Start: 06-01-2023 Telemedicine consultation with patient [facility] Start: 06-01-2023 Tobacco use cessation education [facility] Start: 06-01-2023 [facility] Start: 02-21-2024 Hospital admission, emergency, from emergency room, medical nature [facility] Start: 06-01-2023 Verification routine [facility] Start: 06-01-2023 Admission procedure [facility] Start: 06-01-2023 Oxygen therapy [facility] Start: 06-01-2023 [facility] Start: 12-02-2016 End: 12-02-2016 Patient encounter procedure Appointment [facility] Work Phone: Start: 12-02-2016 End: 12-02-2016 Chest x-ray X-Ray, Chest, PA & Lateral [facility] Work Phone: Start: 12-02-2016 End: 12-02-2016 Radex ribs unilateral 2 views X-Ray, Rib, Unilateral [facility] Work Phone: Start: 08-13-2016 End: 08-13-2016 Patient encounter procedure Appointment [facility] Work Phone: Rosalina Martel virus c apsid IgG Ab [Units/volume] in Serum [facility] Rosalina Martel virus c apsid IgM Ab [Units/volume] in Serum [facility] Rosalina Martel virus n uclear IgG Ab [Units/volume] in Cerebral spinal fluid [facility] Rosalina-Martel virus serologic test [facility] Hemoglobin A1c/Hemoglobin.total in Blood [facility] Magnesium [Mass/volu me] in Serum or Plasma [facility] Patient referral [facility] Work Phone: [facility] Work Phone: Payers Date Payer Category Payer Medicaid [id number] 2024 Self-pay [id number] 2016 Unknown [id number] 2007 Medicare [id number] Unknown [id number] Unknown [id number] Social History Date Type Detail Facility Start: 05-07-2021 End: 06-02-2023 Tobacco smoking status NHIS Unknown if ever smoked [facility] Start: 08-08-2019 None [facility] Start: 02-17-2017 Spouse/ Signif icant Other [facility] Start: 02-17-2017 Non-smoker [facility] Start: 1940 Sex Assigned At Female [facility] Functional Status Date Assessment Result Facility 06-02-2023 Functional status Chair [facility] Work Phone: Mental Status Date Assessment Result Facility 06-01-2023 Cognitive function Voice/Name [facility] Work Phone: Discharge summary 06-02-2023 Note Date & Type Note Facility 06-02-2023 Discharge summary Note Date/Time June 02, 2023 12:54pm [facility] Medical Records Department [address] [place] [address] Instructions for Home/Discharge Instructions 06/02/23 1203 MR#: [id number] Acct: [id number] Name: MIKAEL SON Rep #:[id number] : 1940 82 From: Maxime Thomason PCP: Dr. Adrienne Cruz MD Status:ADM AAMIR Discharge Instructions Diet Discharge Diet: 2000 mg Sodium Diet Activity Discharge Activity: Return to Normal Activity Weight Bearing Status: Weight bearing as tolerated Dressing / Incision Call your doctor if you observe: Fever of 101 or Higher, Coldness, Increased Pain, Numbness or Tingling, Change in Color, Inability to urinate, Inability to have a bowel movement, Using more than 1 pad per hour, Shortness of breath, Dizziness, Fainting spells, Swelling in the ankles, Chest pain, Prolonged hiccupping, Increased palpitations (irregular heartbeat) and Calf discomfort Follow Up Care When: IN 2 WEEKS Test Results: Test results from this visit will be discussed in further detail at your follow-up appointment, if applicable. Discharge Plan Admission Admit Date/Time: 06/01/23 20:56 Primary Reason for Your Visit: Syncope/TIA Attending Provider: Maxime Dale Primary Care Provider: Adrienne Cruz Consulting Providers: Nithin Connell; Leana Mendoza; Jaclyn Chin; Yuko Gerber; Samson Terry; Marisol Fagan; Mari Martin; Lars Purcell; Belkis Murphy; Freedom Coker; Tenzin Albarado; Nathaniel George; Ysabel Vasquez; Amanda Vergara; Mk Beebe; Yulissa Brewer; Parker Bolton; Rosibel Drake; Brennon Dennis; Jillian Willoughby; Eder Bowden; Kris Nobles; HECTOR ALVES; Shakir Hernandez; Ava Cooper; Haven Watson Discharge Orders/Prescriptions Prescriptions: New rosuvastatin 20 mg tablet 20 mg PO QHS Qty: 30 3RF Continued quetiapine [Seroquel] 25 mg tablet 25 mg PO DAILY paroxetine HCl [Paxil] 10 mg tablet 10 mg PO DAILY donepezil [Aricept] 10 mg tablet 10 mg PO DAILY levothyroxine 50 mcg tablet 50 mcg PO DAILY doxepin 10 mg capsule 10 mg PO DAILY PRN (Reason: anxiety) Discontinued rosuvastatin 10 MG tablet 10 mg PO QHS Referrals / Follow Up: Adrienne Cruz MD [Primary Care Provider] - Within 2 Weeks Andrei Berkowitz MD [Non-Staff -Ordering Privileges] - Within 1 Month (For suspicion of possible syncope/TIA/seizure) Disposition Disposition (needs filled in before D/C Order can be placed): NonSkilled IA/Intermed Care 06/02/23 1258<Electronically signed by Maxime Dale MD>Maxime Dale MD CC: Mari Martin; Yuko Gerber; Mk Davidson; Leana Mendoza MD; Marisol Fagan MD; Samson Terry MD; Jillian Willoughby MD; Dr. Za Alves MD; Dr. Nithin Connell MD; Dr. Adrienne Cruz MD; Dr. Haven Watson MD; Dr. Lars Purcell MD; Dr. Belkis Murphy MD; Dr. Tenzin Albarado MD; Dr. Freedom Coker MD; Dr. Nathaniel George DO; Dr. Amanda Vergara MD; Dr. Ysabel Vasquez MD; Dr. Yulissa Brewer MD; Dr. Parker Bolton MD; Dr. Rosibel Drake MD; Kris Nobles MD; Eder Bowden MD; Jaclyn Chin DO; Shakir Hernandez MD; Ava Cooper DO; Brennon Dennis MD ~ Signed [facility] Work Phone: History and physical note 06-01-2023 Note Date & Type Note Facility 06-01-2023 History and physi louisa note Note Date/Time June 01, 2023 8:58pm [facility] Medical Records Department [address] [place] [address] H&P Exam - Hospitalist 06/01/232055 MR#: [id number] Acct: [id number] Name: MIKAEL SON Rep #:[id number] : 1940 82 From: Haven Watson MD PCP: Dr. Adrienne Cruz MD Status:REG ER Location: ED HPI - General General Date of Admission: 06/01/23 Date of Service: 06/01/23 Chief Complaint: L facial droop, dysarthria, ? syncopal event. HPI Narrative The patient is an 82 y/o F residing in assisted living at [facility] w/ PMHx: Hypothyroidism, Anxiety and Depression, Obesity, Hx VTE (DVT), Hx L Breast Ductal CA, Hx bladder neoplasm of unclear specific significance, HLD, Dementia unclear type with unclear behavioral disturbance history who presents to the [facility] on 06/01/23 with history of onset slurred speech and dizziness which began after she sat down for dinner with symptoms starting at approximately 6:30 PM with upon EMS arrival noted left facial droop however on route her symptoms drastically improved. Stroke alert was initiated and per stroke team patient family had reported increased confusion above her baseline dementia with onset suddenly at dinner of dizziness with left-sided facial droop and altered speech with diaphoresis and initially noted become very stiff before she then slumped over to the right. In the ED initial NIH stroke scale noted to be 1 for mild tomoderate dysarthria. No mention from facility regarding loss of bowel or bladder. Workup in the ED included T98, heart rate 60, BP 132/71 with most recent repeat 145/73, respiratory rate 18, initially 90% on room air and eventually placed on 2 L nasal cannula ranging 95 to 99%, CBC with WBC 8.4, hemoglobin 14.3, platelets 238 with increased immature granulocytes, unremarkable coags, BMP with glucose 162 otherwise not marked appearing, troponin 6, CT of the brain with mild periventricular right matter ischemic changes with no acute intracranial findings, CTA head and neck with mild atherosclerotic changes of the head and neck with no evidence for hemodynamically significant stenosis or major vessel occlusion, EKG SR with no acute evidence of ischemia. Telestroke recommendation for further evaluation ofsyncope versus seizure versus TIA with continuation of baby aspirin, recommendation for urinalysis, orthostatics to be obtained, stroke lab workup, MRI of the brain as well as echocardiogram. [facility] Medical History Bladder neoplasm of uncertain malignant potential Dementia DVT (deep venous thrombosis) High cholesterol History of basal cell cancer History of ductal carcinoma in situ of breast Hypercholesteremia Non-smoker Post-menopausal Skin cancer Wears dentures Wears glasses Home Medications rosuvastatin 10 mg tablet 10 mg PO QHS cholesterol lowering 02/17/17 [History Last Taken 02/16/17] donepezil 10 mg tablet (Aricept) 10 mg PO DAILY 01/15/21 [History Last Taken Unknown] paroxetine HCl 10 mg tablet (Paxil) 10 mg PO DAILY 01/15/21 [History Last Taken Unknown] quetiapine 25 mg tablet (Seroquel) 25 mg PO DAILY 01/15/21 [History Last Taken Unknown] cephalexin 500 mg capsule 500 mg PO Q12 post-operative 3 days #6 CAPSULES 05/12/21 [Rx Last Taken Unknown] oxycodone-acetaminophen 5 mg-325 mg tablet (Percocet) 1 tab PO Q8H PRN pain 3 days #10 tabs 05/12/21 [Rx Last Taken Unknown] doxepin 10 mg capsule 10 mg PO DAILY PRN anxiety 06/01/23 [History Last Taken Unknown] levothyroxine 50 mcg tablet 50 mcg PO DAILY 06/01/23 [History Last Taken Unknown] Allergy/AdvReac Type Severity Reaction Status Date / Time valacyclovir [From Valtrex] Allergy Intermediate Rash Verified 05/12/21 09:17 Family History Mother Breast cancer Sister Colon cancer Breast cancer Father Parkinsons Heart disease Myocardial infarction Other Bladder cancer Brain cancer Surgical History History of bladder surgery History of lumpectomy of left breast Hx of vein stripping Social History household members: none current occupational status: retired Smoking Status: Never smoker alcohol intake: never substance use type: does not use what type of physical activity do you participate in: walking frequency: 3-4 times per week seatbelt use: always do you feel safe at home: Yes additional social history: ROS Review of Systems ROS Unobtainable: due to mental condition Vital Signs Vital Signs Vital Signs: 06/01/23 19:16 06/01/23 19:24 06/01/23 19:24 Temperature 98 F 95.6 F L Temperature Source Temporal Temporal Pulse Rate 60 Respiratory Rate 18 Blood Pressure 132/71 H Blood Pressure Mean 91 Pulse Ox 90 95 Oxygen Delivery Method Room Air Nasal Cannula Oxygen Flow Rate (L/min) 2 06/01/23 19:42 06/01/23 19:54 06/01/23 20:24 Temperature Temperature Source Pulse Rate 60 58 L Respiratory Rate 18 17 Blood Pressure 145/73 H 124/83 H Blood Pressure Mean 97 96 Pulse Ox 99 99 99 Oxygen Delivery Method Nasal Cannula Nasal Cannula Nasal Cannula Oxygen Flow Rate (L/min) 2 2 2 Weight Weight: 176 lb Body Mass Index (BMI) 31.1 Physical Exam Narrative Physical Examination: General: Awake, alert, oriented to self but does have underlying significant dementia, can have some discussion but chronically has disorientation per discussion with family but is been worse over the last month, seated upright in the bed, no acute distress. Skin: Normal color, normal turgor, no icterus, no cyanosis except occasional staged ecchymoses, abrasion. HEENT: AT/NC, EOMI, PERRLA, mildly dry MM, no carotid bruits or JVD noted. Lungs: Mildly diminished, greater bases, appropriate effort, no rales, ronchi orwheezing. Heart: Regular rate and rhythm; no gallop, rub audible. Abdomen: Soft, obese, NTTP, ND, mildly hyperactive BS, no obvious evidence of HSM. Extremities: No cyanosis, clubbing, or edema. Neurological: Patient awake, alert, oriented x as noted, cognitive function decreased baseline secondary to underlying dementia but has been worse over the last month per discussion with family present; pupils equally reactive to light and accommodation, cranial nerves grossly normal but does have mild flattening of the nasolabial fold on the left side however with smiling this corrects, moving all 4 extremities, finger-nose and [id number] appropriate, equivocal Babinski, sensation intact, strength moderately to severely globally decreased secondary to underlying comorbidities but no focal deficit. Psychiatric: Affect appears flat, fatigued, no acute evidence of depressive or anxiety feelings. Results Lab / Micro Data 06/01/23 19:07 06/01/23 19:07 Labs: Laboratory Results - last 24 hr 06/01/23 19:07: WBC 8.4, RBC 4.94, Hgb 14.3, Hct 45.0, MCV 91.1, MCH 28.9, MCHC 31.8 L, RDW Std Deviation 43.1, RDW Coeff of Daria 12.9, Plt Count 238, MPV 8.7, Immature Gran % (Auto) 2.100 H, Neut % (Auto) 39.5 L, Lymph % (Auto) 44.9 H, [place] % (Auto) 9.0, Eos % (Auto) 3.7, Baso % (Auto) 0.8, Absolute Neuts (auto) 3.3, Absolute Lymphs (auto) 3.79, Nucleated RBC % 0, PT 12.4, INR 0.9, APTT 35.7, Sodium 138, Potassium 3.6, Chloride 106, Carbon Dioxide 29.0, Anion Gap 3 L, BUN 13, Creatinine 0.82, Estim Creat Clear Calc 54.74, Est GFR (MDRD) Af Amer86, Est GFR (MDRD) Non-Af 71, BUN/Creatinine Ratio 15.8, Glucose 162 H, Calcium 9.6, Troponin I High Sens 6 Imaging Radiology Impression Brain CT 06/01/23 19:08 IMPRESSION: Mild periventricular white matter ischemic changes. No mass or acute bleed.. If concern for acute infarct MRI recommended Electronically Signed: Morales Topete MD at 19:28 EST , ADDENDUM: 06/01/23 1936 IMPRESSION: Mild periventricular white matter ischemic changes. No mass or acute bleed.. If concern for acute infarct MRI recommended N.B. : The above Results were Read Back by Morales Topete MD to Andrés Acuña MD, and understanding confirmed on 06/01/2023 19:29:49 (ET). Electronically Signed: Morales Topete MD at 19:28 EST Reading Location ID and State: [facility] / [place] Tel [phone], Service support , ADDENDUM: 06/01/23 1945 IMPRESSION: Mild periventricular white matter ischemic changes. No mass or acute bleed.. If concern for acute infarct MRI recommended N.B. : The above Results were Read Back by Morales Topete MD to Andrés Acuña MD, and understanding confirmed on 06/01/2023 19:38:11 (ET). Electronically Signed: Morales Topete MD at 19:28 EST , Head/Neck CTA 06/01/23 19:15 IMPRESSION: Mild atherosclerotic changes of the head and neck. No evidence for hemodynamically significant stenosis or major vessel occlusion Electronically Signed: Morales Topete MD at 19:45 EST , ADDENDUM: 06/01/23 195 IMPRESSION: Mild atherosclerotic changes of the head and neck. No evidence for hemodynamically significant stenosis or major vessel occlusion N.B. : The above Results were Read Back by Morales Topete MD to Andrés Acuña MD, and understanding confirmed on 06/01/2023 19:46:01 (ET). Electronically Signed: Morales Topete MD at 19:45 EST , Chest X-Ray 06/01/23 20:18 IMPRESSION: No acute cardiopulmonary pathology Electronically Signed: Morales Topete MD at 20:48 EST , Assessment & Plan Assessment/Plan (1) TIA (transient ischemic attack): PLAN: Plan The patient is an 82 y/o F residing in assisted living at [facility] w/ PMHx: Hypothyroidism, Anxiety and Depression, Obesity, Hx VTE (DVT), Hx L Breast Ductal CA, Hx bladder neoplasm of unclear specific significance, HLD, Dementia unclear type with unclear behavioral disturbance history who presents to the [facility] on 06/01/23 with history of onset slurred speech and dizziness which began after she sat down for dinner with symptoms starting at approximately 6:30 PM with upon EMS arrival noted left facial droop however on route her symptoms drastically improved. #1. Questionable syncope versus TIA/CVA versus possible seizure activity with transient dysarthria, facial droop, increased confusion however some concern forstiffening with syncopal event following: Will admit to PCU, will obtain MRI Brain, ECHO, will obtain EEG to be cautious given neurology concerns, PT/OT/Speech/Nutrition evaluation per protocol. Will allow permissive HTN, maintain on asa, statin w/ AM FLP, fall precautions. Mag, TSH, FLP, HgbA1c requested. Maintain on fall and aspiration precautions. Will continue ED initiated Neurology consultation. #2. Acute Hypoxia, mild, unclear etiology: CXR without acute findings, family notes intermittent wheezing through the past year, will add ATC budesonide, PRN albuterol and obtain PA and Lateral in the AM to be cautious. #3. Elevated BP without hypertensive diagnosis: Will continue permissive hypertension per stroke protocol with as needed agents per stroke protocol. #4. Hyperglycemia: Admission glucose 162, A1c pending per stroke protocol as noted. If consistent with diabetes will transition to ADA diet with Accu-Cheks with insulin sliding scale. Nutrition consulted also per stroke protocol. #5. Dementia unclear type with unclear behavioral disturbance history, potentially progressing: Complicates presentation, continue patient home donepezil home regimen, maintain on fall and aspiration precautions, therapies as well as case management consulted as noted. #6. Anxiety and depression: We will continue patient home doxepin, low-dose Seroquel, paroxetine. #7. 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 Patient does have chronic LUE paresthesias and some weakness followingher surgery and interventions of note. #8. History bladder neoplasm of unclear significance: Noted in chart history, uncertain exact significance of the bladder neoplasm, s/p 05/12/21 cystoscopy withbladder biopsy and fulguration, encourage continued outpatient follow-up with urology as previously arranged. #9. Hypothyroidism: Continue home levothyroxine regimen, TSH pending. #10. Hyperlipidemia: Continue home statin regimen. AM FLP. #11. Obesity: Weight loss and lifestyle changes encouraged. #12. History VTE: Chart reported history of previous DVT, will continue chemoprophylaxis as noted. #13. DVT prophylaxis: Lovenox. #14. CODE status: Patient DEREK is her daughter who is present and living will is currently in place. Discussed CODE status at length including difference between FULL code, DNR-CCA and DNR-CC status. Following discussions about the differences in these status, requested DNR-CCA, no intubation status. Advanced Care Planning Face to Face Time: 16 minutes. Charges/Coding Visit Charges Inpatient E&M: 72588 Init Hosp L3 Procedures Hospitalists Procedures: 65438 Advncd Care Plan 30 Min 06/01/23 3238 <Electronically signed by Haven Watson MD> Cosigner Signature (if applicable): CC: Dr. Adrienne Cruz MD; Dr. Haven Watson MD~ Signed [facility] Work Phone: Discharge summary 06-01-2023 Note Date & Type Note Facility 06-01-2023 Discharge summary Note Date/Time June 01, 2023 7:59pm [facility] Medical Records Department [address] [place] [address] Emergency Department Summary 06/01/23 MR#: [id number] Acct: [id number] Name: MIKAEL SON Rep #:[id number] : 1940 82 From: Andrés Acuña MD PCP: Dr. Adrienne Cruz MD Status:REG ER Location: ED HPI History of Present Illness Chief Complaint: Stroke Alert Narrative Narrative: 82-year-old female presents with symptoms of slurred speech and dizziness which began after she sat down at the dinner table. Per EMS, her symptoms began at 630, less than an hour prior to arrival. She states she became very dizzy and then had problems with speech. They noticed left facial droop upon arrival. However, they states that in route her symptoms have drastically improved. Patient denies any headache. No chest pain or other symptoms. [facility] Medical History (Updated 06/01/23 @ 20:54 by Andrés Acuña MD) Bladder neoplasm of uncertain malignant potential Dementia DVT (deep venous thrombosis) High cholesterol History of basal cell cancer History of ductal carcinoma in situ of breast Hypercholesteremia Non-smoker Post-menopausal Skin cancer Wears dentures Wears glasses Home Medications rosuvastatin 10 mg tablet 10 mg PO QHS cholesterol lowering 02/17/17 [History Last Taken 02/16/17] donepezil 10 mg tablet (Aricept) 10 mg PO DAILY 01/15/21 [History Last Taken Unknown] paroxetine HCl 10 mg tablet (Paxil) 10 mg PO DAILY 01/15/21 [History Last Taken Unknown] quetiapine 25 mg tablet (Seroquel) 25 mg PO DAILY 01/15/21 [History Last Taken Unknown] cephalexin 500 mg capsule 500 mg PO Q12 post-operative 3 days #6 CAPSULES 05/12/21 [Rx Last Taken Unknown] oxycodone-acetaminophen 5 mg-325 mg tablet (Percocet) 1 tab PO Q8H PRN pain 3 days #10 tabs 05/12/21 [Rx Last Taken Unknown] doxepin 10 mg capsule 10 mg PO DAILY PRN anxiety 06/01/23 [History Last Taken Unknown] levothyroxine 50 mcg tablet 50 mcg PO DAILY 06/01/23 [History Last Taken Unknown] Allergy/AdvReac Type Severity Reaction Status Date / Time valacyclovir [From Valtrex] Allergy Intermediate Rash Verified 05/12/21 09:17 Family History (Updated 06/01/23 @ 20:[address] Haven Watson MD) Mother Breast cancer Sister Colon cancer Breast cancer Father Parkinsons Heart disease Myocardial infarction Other Bladder cancer Brain cancer Surgical History (Updated 06/01/23 @ 20:[address] Haven Watson MD) History of bladder surgery History of lumpectomy of left breast Hx of vein stripping Social History household members: none current occupational status: retired Smoking Status: Never smoker alcohol intake: never substance use type: does not use what type of physical activity do you participate in: walking frequency: 3-4 times per week seatbelt use: always do you feel safe at home: Yes additional social history: ROS ROS ED ROS Narrative Constitutional: No fever, no chills. HEENT: No sore throat. No neck pain. No loss of vision. No rhinorrhea. Reported left-sided facial droop initially. Cardiovascular: No chest pain. No palpitations. No pedal edema. Respiratory: No cough, no shortness of breath. Abdominal: No abdominal pain. No nausea. No vomiting. Genitourinary: No dysuria. No hematuria. Musculoskeletal: No myalgias. No arthralgias. Neurologic: No headaches. Positive dizziness. No lightheadedness. Skin: No rash. No change in color. Psychiatric: No depression. No anxiety. EXAM Physical Exam Narrative Exam Narrative: Afebrile. Vital signs noted. HEENT: Normocephalic. Atraumatic. PERRL, EOMI. Neck soft and supple. No pointtenderness or step off. Cardiovascular: Regular rate and rhythm. No murmurs, rubs, or gallops appreciated. Respiratory: No tachypnea. Lungs clear to auscultation bilaterally. Gastrointestinal: Abdomen soft, nontender, with normoactive bowel sounds. No rebound or guarding. Neurological: Awake. Alert. Nonfocal, nonlateralizing. Skin: No rash. Normal color. No pallor. Musculoskeletal: No pedal edema. Full range of motion extremities. Const Vital Signs: 06/01/23 19:16 06/01/23 19:24 06/01/23 19:24 Temperature 98 F 95.6 F L Temperature Source Temporal Temporal Pulse Rate 60 Respiratory Rate 18 Blood Pressure 132/71 H Blood Pressure Mean 91 Pulse Ox 90 95 Oxygen Delivery Method Room Air Nasal Cannula Oxygen Flow Rate (L/min) 2 06/01/23 19:42 06/01/23 19:54 06/01/23 20:24 Temperature Temperature Source Pulse Rate 60 58 L Respiratory Rate 18 17 Blood Pressure 145/73 H 124/83 H Blood Pressure Mean 97 96 Pulse Ox 99 99 99 Oxygen Delivery Method Nasal Cannula Nasal Cannula Nasal Cannula Oxygen Flow Rate (L/min) 2 2 2 NIHSS NIHSS Initial: 1a Level of Consciousness: 0 1b LOC Questions (Score 2 if aphasic/stupor): 0 1c LOC Commands (Only score 1st attempt): 0 2 Best Gaze (If aphasic, use reflexive mvmts.): 0 3 Visual: 0 4 Facial Palsy: 0 5 Motor Arm Right (UN = amputation/fusion): 0 5 Motor Arm Left: 0 6 Motor Leg Right: 0 6 Motor Leg Left: 0 7 Limb ataxia (Only + if out of proportion): 0 8 Sensory (Aphasia/stupor=0 or 1, coma=2): 0 10 Dysarthria (mute, coma=2, intubated=UN): 0 11 Extinction and Inattention (only scored if +): 0 Total Score: 0 MDM MDM MDM Narrative Medical decision making narrative: Concern is for TIA versus stroke. There is no evidence of facial droop currently. Prehospital stroke team was called and protocol followed. EKG was obtained and interpreted by myself independently as sinus bradycardia at 58 bpm without ectopy or acute ST changes. No STEMI. No significant change from EKG dated August 07, 2020 reviewed. I reviewed her laboratory work and she has a normal white count of 8.4, hemoglobin 14.3, hematocrit 45.0, platelet count normal at 238. INR is normal at 0.9 with a PTT 35.7. Electrolyte panel is grossly unremarkable save for anion gap low at 3. Glucose is appropriately elevated at 162. I have no concern for diabetic ketoacidosis. High-sensitivitytroponin is 6. I received a call from the radiologist twice [address] of the brain which I discussed with him which shows no acute process. The otherwas for the CTA of the head and neck which showed no evidence of large vessel occlusion but perhaps atherosclerotic disease of the carotids. Chest x-ray interpreted by myself and 1 view independently shows no evidence of a pneumonia or pneumothorax. I reviewed the radiology report which confirms my independent interpretation. However, patient was borderline hypoxic at 90% on room air was placed on nasal cannula oxygen by the RN. At this point in time, her symptoms have essentially resolved, she states that she does not feel as dizzy. The patient was seen and evaluated by the stroke neurologist via telemedicine who did not recommend TNK as she has a negative NIH stroke scale and recommended nothing stronger than aspirin. I then discussed patient with Dr. Haven Watson for observation in PCU. Patient is in stable condition. History & Record Review Discussion w/independent historian: EMS personnel and Patient Additional record(s) reviewed:: Prior ED visit Lab Data Attestation: I reviewed the patient's lab results. Labs: Laboratory Results - last 24 hr 06/01/23 19:07 WBC 8.4 RBC 4.94 Hgb 14.3 Hct 45.0 MCV 91.1 MCH 28.9 MCHC 31.8 L RDW Std Deviation 43.1 RDW Coeff of Daria 12.9 Plt Count 238 MPV 8.7 Immature Gran % (Auto) 2.100 H Neut % (Auto) 39.5 L Lymph % (Auto) 44.9 H [place] % (Auto) 9.0 Eos % (Auto) 3.7 Baso % (Auto) 0.8 Absolute Neuts (auto) 3.3 Absolute Lymphs (auto) 3.79 Nucleated RBC % 0 PT 12.4 INR 0.9 APTT 35.7 Sodium 138 Potassium 3.6 Chloride 106 Carbon Dioxide 29.0 Anion Gap 3 L BUN 13 Creatinine 0.82 Estim Creat Clear Calc 54.74 Est GFR (MDRD) Af Amer 86 Est GFR (MDRD) Non-Af 71 BUN/Creatinine Ratio 15.8 Glucose 162 H Calcium 9.6 Troponin I High Sens 6 Radiography Diagnostic Testing: Clinical Impression(s) from Imaging Studies Brain CT 06/01/23 19:08 IMPRESSION: Mild periventricular white matter ischemic changes. No mass or acute bleed.. If concern for acute infarct MRI recommended Electronically Signed: Morales Topete MD at 19:28 EST , ADDENDUM: 06/01/23 1936 IMPRESSION: Mild periventricular white matter ischemic changes. No mass or acute bleed.. If concern for acute infarct MRI recommended N.B. : The above Results were Read Back by Morales Topete MD to Andrés Acuña MD, and understanding confirmed on 06/01/2023 19:29:49 (ET). Electronically Signed: Morales Topete MD at 19:28 EST Reading Location ID and State: [address] [place] [address] Tel [phone], Service support , ADDENDUM: 06/01/23 1945 IMPRESSION: Mild periventricular white matter ischemic changes. No mass or acute bleed.. If concern for acute infarct MRI recommended N.B. : The above Results were Read Back by Morales Topete MD to Andrés Acuña MD, and understanding confirmed on 06/01/2023 19:38:11 (ET). Electronically Signed: Morales Topete MD at 19:28 EST , Head/Neck CTA 06/01/23 19:15 IMPRESSION: Mild atherosclerotic changes of the head and neck. No evidence for hemodynamically significant stenosis or major vessel occlusion Electronically Signed: Morales Topete MD at 19:45 EST , ADDENDUM: 06/01/23 195 IMPRESSION: Mild atherosclerotic changes of the head and neck. No evidence for hemodynamically significant stenosis or major vessel occlusion N.B. : The above Results were Read Back by Morales Topete MD to Andrés Acuña MD, and understanding confirmed on 06/01/2023 19:46:01 (ET). Electronically Signed: Morales Topete MD at 19:45 EST , Chest X-Ray 06/01/23 20:18 IMPRESSION: No acute cardiopulmonary pathology Electronically Signed: Morales Topete MD at 20:48 EST , Discharge Plan Dx/Rx/DC Orders Clinical Impression: Dizziness, TIA (transient ischemic attack), Facial droop Disposition Disposition: Acute Care Hospital [facility] What to do if you have Problems For any increased pain, shortness of breath, bleeding, nausea or vomiting, chestpain, or any unexpected problems, contact your Primary Care Provider. Call [facility] ([phone]) or report to the closest Emergency Room. Call 911 if necessary. 06/01/232057 <Electronically signed by Andrés Acuña MD> Cosigner Signature (if applicable): CC: Dr. Adrienne Cruz MD ~ Signed [facility] Work Phone: Discharge summary 06-01-2023 Note Date & Type Note Facility 06-01-2023 Discharge summary Note Date/Time June 01, 2023 7:59pm [facility] Medical Records Department [address] [place] [address] Emergency Department Summary 06/01/23 MR#: [id number] Acct: [id number] Name: MIKAEL SON Rep #:[id number] : 1940 82 From: Andrés Acuña MD PCP: Dr. Adrienne Cruz MD Status:REG ER Location: ED HPI History of Present Illness Chief Complaint: Stroke Alert Narrative Narrative: 82-year-old female presents with symptoms of slurred speech and dizziness which began after she sat down at the dinner table. Per EMS, her symptoms began at 630, less than an hour prior to arrival. She states she became very dizzy and then had problems with speech. They noticed left facial droop upon arrival. However, they states that in route her symptoms have drastically improved. Patient denies any headache. No chest pain or other symptoms. [facility] Medical History (Updated 06/01/23 @ 20:54 by Andrés Acuña MD) Bladder neoplasm of uncertain malignant potential Dementia DVT (deep venous thrombosis) High cholesterol History of basal cell cancer History of ductal carcinoma in situ of breast Hypercholesteremia Non-smoker Post-menopausal Skin cancer Wears dentures Wears glasses Home Medications rosuvastatin 10 mg tablet 10 mg PO QHS cholesterol lowering 02/17/17 [History Last Taken 02/16/17] donepezil 10 mg tablet (Aricept) 10 mg PO DAILY 01/15/21 [History Last Taken Unknown] paroxetine HCl 10 mg tablet (Paxil) 10 mg PO DAILY 01/15/21 [History Last Taken Unknown] quetiapine 25 mg tablet (Seroquel) 25 mg PO DAILY 01/15/21 [History Last Taken Unknown] cephalexin 500 mg capsule 500 mg PO Q12 post-operative 3 days #6 CAPSULES 05/12/21 [Rx Last Taken Unknown] oxycodone-acetaminophen 5 mg-325 mg tablet (Percocet) 1 tab PO Q8H PRN pain 3 days #10 tabs 05/12/21 [Rx Last Taken Unknown] doxepin 10 mg capsule 10 mg PO DAILY PRN anxiety 06/01/23 [History Last Taken Unknown] levothyroxine 50 mcg tablet 50 mcg PO DAILY 06/01/23 [History Last Taken Unknown] Allergy/AdvReac Type Severity Reaction Status Date / Time valacyclovir [From Valtrex] Allergy Intermediate Rash Verified 05/12/21 09:17 Family History (Updated 06/01/23 @ 20:[address] Haven Watson MD) Mother Breast cancer Sister Colon cancer Breast cancer Father Parkinsons Heart disease Myocardial infarction Other Bladder cancer Brain cancer Surgical History (Updated 06/01/23 @ 20:[address] Haven Watson MD) History of bladder surgery History of lumpectomy of left breast Hx of vein stripping Social History household members: none current occupational status: retired Smoking Status: Never smoker alcohol intake: never substance use type: does not use what type of physical activity do you participate in: walking frequency: 3-4 times per week seatbelt use: always do you feel safe at home: Yes additional social history: ROS ROS ED ROS Narrative Constitutional: No fever, no chills. HEENT: No sore throat. No neck pain. No loss of vision. No rhinorrhea. Reported left-sided facial droop initially. Cardiovascular: No chest pain. No palpitations. No pedal edema. Respiratory: No cough, no shortness of breath. Abdominal: No abdominal pain. No nausea. No vomiting. Genitourinary: No dysuria. No hematuria. Musculoskeletal: No myalgias. No arthralgias. Neurologic: No headaches. Positive dizziness. No lightheadedness. Skin: No rash. No change in color. Psychiatric: No depression. No anxiety. EXAM Physical Exam Narrative Exam Narrative: Afebrile. Vital signs noted. HEENT: Normocephalic. Atraumatic. PERRL, EOMI. Neck soft and supple. No pointtenderness or step off. Cardiovascular: Regular rate and rhythm. No murmurs, rubs, or gallops appreciated. Respiratory: No tachypnea. Lungs clear to auscultation bilaterally. Gastrointestinal: Abdomen soft, nontender, with normoactive bowel sounds. No rebound or guarding. Neurological: Awake. Alert. Nonfocal, nonlateralizing. Skin: No rash. Normal color. No pallor. Musculoskeletal: No pedal edema. Full range of motion extremities. Const Vital Signs: 06/01/23 19:16 06/01/23 19:24 06/01/23 19:24 Temperature 98 F 95.6 F L Temperature Source Temporal Temporal Pulse Rate 60 Respiratory Rate 18 Blood Pressure 132/71 H Blood Pressure Mean 91 Pulse Ox 90 95 Oxygen Delivery Method Room Air Nasal Cannula Oxygen Flow Rate (L/min) 2 06/01/23 19:42 06/01/23 19:54 06/01/23 20:24 Temperature Temperature Source Pulse Rate 60 58 L Respiratory Rate 18 17 Blood Pressure 145/73 H 124/83 H Blood Pressure Mean 97 96 Pulse Ox 99 99 99 Oxygen Delivery Method Nasal Cannula Nasal Cannula Nasal Cannula Oxygen Flow Rate (L/min) 2 2 2 NIHSS NIHSS Initial: 1a Level of Consciousness: 0 1b LOC Questions (Score 2 if aphasic/stupor): 0 1c LOC Commands (Only score 1st attempt): 0 2 Best Gaze (If aphasic, use reflexive mvmts.): 0 3 Visual: 0 4 Facial Palsy: 0 5 Motor Arm Right (UN = amputation/fusion): 0 5 Motor Arm Left: 0 6 Motor Leg Right: 0 6 Motor Leg Left: 0 7 Limb ataxia (Only + if out of proportion): 0 8 Sensory (Aphasia/stupor=0 or 1, coma=2): 0 10 Dysarthria (mute, coma=2, intubated=UN): 0 11 Extinction and Inattention (only scored if +): 0 Total Score: 0 MDM MDM MDM Narrative Medical decision making narrative: Concern is for TIA versus stroke. There is no evidence of facial droop currently. Prehospital stroke team was called and protocol followed. EKG was obtained and interpreted by myself independently as sinus bradycardia at 58 bpm without ectopy or acute ST changes. No STEMI. No significant change from EKG dated August 07, 2020 reviewed. I reviewed her laboratory work and she has a normal white count of 8.4, hemoglobin 14.3, hematocrit 45.0, platelet count normal at 238. INR is normal at 0.9 with a PTT 35.7. Electrolyte panel is grossly unremarkable save for anion gap low at 3. Glucose is appropriately elevated at 162. I have no concern for diabetic ketoacidosis. High-sensitivitytroponin is 6. I received a call from the radiologist twice [address] of the brain which I discussed with him which shows no acute process. The otherwas for the CTA of the head and neck which showed no evidence of large vessel occlusion but perhaps atherosclerotic disease of the carotids. Chest x-ray interpreted by myself and 1 view independently shows no evidence of a pneumonia or pneumothorax. I reviewed the radiology report which confirms my independent interpretation. However, patient was borderline hypoxic at 90% on room air was placed on nasal cannula oxygen by the RN. At this point in time, her symptoms have essentially resolved, she states that she does not feel as dizzy. The patient was seen and evaluated by the stroke neurologist via telemedicine who did not recommend TNK as she has a negative NIH stroke scale and recommended nothing stronger than aspirin. I then discussed patient with Dr. Haven Watson for observation in PCU. Patient is in stable condition. History & Record Review Discussion w/independent historian: EMS personnel and Patient Additional record(s) reviewed:: Prior ED visit Lab Data Attestation: I reviewed the patient's lab results. Labs: Laboratory Results - last 24 hr 06/01/23 19:07 WBC 8.4 RBC 4.94 Hgb 14.3 Hct 45.0 MCV 91.1 MCH 28.9 MCHC 31.8 L RDW Std Deviation 43.1 RDW Coeff of Daria 12.9 Plt Count 238 MPV 8.7 Immature Gran % (Auto) 2.100 H Neut % (Auto) 39.5 L Lymph % (Auto) 44.9 H [place] % (Auto) 9.0 Eos % (Auto) 3.7 Baso % (Auto) 0.8 Absolute Neuts (auto) 3.3 Absolute Lymphs (auto) 3.79 Nucleated RBC % 0 PT 12.4 INR 0.9 APTT 35.7 Sodium 138 Potassium 3.6 Chloride 106 Carbon Dioxide 29.0 Anion Gap 3 L BUN 13 Creatinine 0.82 Estim Creat Clear Calc 54.74 Est GFR (MDRD) Af Amer 86 Est GFR (MDRD) Non-Af 71 BUN/Creatinine Ratio 15.8 Glucose 162 H Calcium 9.6 Troponin I High Sens 6 Radiography Diagnostic Testing: Clinical Impression(s) from Imaging Studies Brain CT 06/01/23 19:08 IMPRESSION: Mild periventricular white matter ischemic changes. No mass or acute bleed.. If concern for acute infarct MRI recommended Electronically Signed: Morales Topete MD at 19:28 EST Reading Location ID and State: [facility] / [place] Tel , Service support , ADDENDUM: 06/01/231935 IMPRESSION: Mild periventricular white matter ischemic changes. No mass or acute bleed.. If concern for acute infarct MRI recommended N.B. : The above Results were Read Back by Morales Topete MD to Andrés Acuña MD, and understanding confirmed on 06/01/2023 19:29:49 (ET). Electronically Signed: Morales Topete MD at 19:28 EST , ADDENDUM: 06/01/231944 IMPRESSION: Mild periventricular white matter ischemic changes. No mass or acute bleed.. If concern for acute infarct MRI recommended N.B. : The above Results were Read Back by Morales Topete MD to Andrés Acuña MD, and understanding confirmed on 06/01/2023 19:38:11 (ET). Electronically Signed: Morales Topete MD at 19:28 EST Reading Location ID and State: [address] [place] [address] Tel [phone], Service support , Head/Neck CTA 06/01/23 19:15 IMPRESSION: Mild atherosclerotic changes of the head and neck. No evidence for hemodynamically significant stenosis or major vessel occlusion Electronically Signed: Morales Topete MD at 19:45 EST Reading Location ID and State: [address] [place] [address] Tel [phone], Service support , ADDENDUM: 06/01/231951 IMPRESSION: Mild atherosclerotic changes of the head and neck. No evidence for hemodynamically significant stenosis or major vessel occlusion N.B. : The above Results were Read Back by Morales Topete MD to Andrés Acuña MD, and understanding confirmed on 06/01/2023 19:46:01 (ET). Electronically Signed: Morales Topete MD at 19:45 EST Reading Location ID and State: [facility] / [place] Tel [phone], Service support , Chest X-Ray 06/01/23 20:18 IMPRESSION: No acute cardiopulmonary pathology Electronically Signed: Morales Topete MD at 20:48 EST , Discharge Plan Dx/Rx/DC Orders Clinical Impression: Dizziness, TIA (transient ischemic attack), Facial droop Disposition Disposition: Acute Care Hospital [facility] What to do if you have Problems For any increased pain, shortness of breath, bleeding, nausea or vomiting, chestpain, or any unexpected problems, contact your Primary Care Provider. Call [facility] ([phone]) or report to the closest Emergency Room. Call 911 if necessary. 06/01/232057 <Electronically signed by Andrés Acuña MD> Cosigner Signature (if applicable): CC: Dr. Adrienne Cruz MD ~ Signed [facility] Work Phone: Fall risk assessment 12-02-2016 Note Date & Type Note Facility 12-02-2016 Fall risk assessm ent [facility] Work Phone: [facility] No Consult note Note Date & Type Note Facility Consult note Note Date/Time June 02, 2023 1:45pm [facility] Medical Records Department [address] [place] [address] Consultation - Neurology 06/02/23 1344 MR#: [id number] Acct: [id number] Name: MIKAEL SON Rep #:[id number] : 1940 82 From: Samson Terry MD PCP: Dr. Adrienne Cruz MD Status:ADM AAMIR Location: [place] [address] Assessment and Plan: Stroke Assessment/Plan MIKAEL SON is a 82 F with acute encephalopathy with non-focal features. Neuroimaging is without evidence of stroke. No further neurovascular work up recommended. HPI Consult Data Date of Consult: 06/02/23 HPI Narrative HPI Narrative: MIKAEL SON is a 82 F with acute encephalopathy with non-focal features. Neuroimaging is without evidence of stroke. [facility] Medical History Bladder neoplasm of uncertain malignant potential Dementia DVT (deep venous thrombosis) High cholesterol History of basal cell cancer History of ductal carcinoma in situ of breast Hypercholesteremia Non-smoker Post-menopausal Skin cancer Wears dentures Wears glasses Home Medications donepezil 10 mg tablet (Aricept) 10 mg PO DAILY memory 01/15/21 [History Last Taken Unknown] paroxetine HCl 10 mg tablet (Paxil) 10 mg PO DAILY mental health 01/15/21 [History Last Taken Unknown] quetiapine 25 mg tablet (Seroquel) 25 mg PO DAILY sleep 01/15/21 [History Last Taken Unknown] doxepin 10 mg capsule 10 mg PO DAILY PRN anxiety 06/01/23 [History Last Taken Unknown] levothyroxine 50 mcg tablet 50 mcg PO DAILY thyroid 06/01/23 [History Last Taken Unknown] rosuvastatin 20 mg tablet 20 mg PO QHS #30 tabs 06/02/23 [Rx Last Taken Unknown] Allergy/AdvReac Type Severity Reaction Status Date / Time valacyclovir [From Valtrex] Allergy Intermediate Rash Verified 05/12/21 09:17 Family History Mother Breast cancer Sister Colon cancer Breast cancer Father Parkinsons Heart disease Myocardial infarction Other Bladder cancer Brain cancer Surgical History History of bladder surgery History of lumpectomy of left breast Hx of vein stripping Social History household members: none current occupational status: retired Smoking Status: Never smoker alcohol intake: never substance use type: does not use what type of physical activity do you participate in: walking frequency: 3-4 times per week seatbelt use: always do you feel safe at home: Yes additional social history: Vital Signs Vital Signs Vital Signs: 06/01/23 19:16 06/01/23 19:24 06/01/23 19:24 Temperature 98 F 95.6 F L Temperature Source Temporal Temporal Pulse Rate 60 Respiratory Rate 18 Respiratory Effort Respiratory Depth Respiratory Pattern Blood Pressure 132/71 H Blood Pressure [BP] Blood Pressure Mean 91 Blood Pressure Mean [BP] Blood Pressure Source Blood Pressure Source [BP] Blood Pressure Position Blood Pressure Position [BP] Blood Pressure Location Blood Pressure Location [BP] Pulse Ox 90 95 Oxygen Delivery Method Room Air Nasal Cannula Oxygen Flow Rate (L/min) 2 06/01/23 19:42 06/01/23 19:54 06/01/23 20:24 Temperature Temperature Source Pulse Rate 60 58 L Respiratory Rate 18 17 Respiratory Effort Respiratory Depth Respiratory Pattern Blood Pressure 145/73 H 124/83 H Blood Pressure [BP] Blood Pressure Mean 97 96 Blood Pressure Mean [BP] Blood Pressure Source Blood Pressure Source [BP] Blood Pressure Position Blood Pressure Position [BP] Blood Pressure Location Blood Pressure Location [BP] Pulse Ox 99 99 99 Oxygen Delivery Method Nasal Cannula Nasal Cannula Nasal Cannula Oxygen Flow Rate (L/min) 2 2 2 06/01/23 20:54 06/01/23 22:31 06/01/23 22:52 Temperature 97.5 F L Temperature Source Oral Pulse Rate 62 61 70 Respiratory Rate 16 16 18 Respiratory Effort Respiratory Depth Respiratory Pattern Normal Blood Pressure 122/70 H Blood Pressure [BP] 140/85 H Blood Pressure Mean 87 Blood Pressure Mean [BP] 103 Blood Pressure Source Blood Pressure Source [BP] Monitor Blood Pressure Position Blood Pressure Position [BP] Semi-Fowlers Blood Pressure Location Blood Pressure Location [BP] Right Arm Pulse Ox 99 93 Oxygen Delivery Method Nasal Cannula Room Air Oxygen Flow Rate (L/min) 2 06/01/23 22:52 06/01/23 22:52 06/02/23 06:07 Temperature 98.7 F Temperature Source Oral Pulse Rate 61 Respiratory Rate 20 H 16 Respiratory Effort Normal Non-Labored Respiratory Depth Shallow Respiratory Pattern Normal Blood Pressure 155/77 H Blood Pressure [BP] Blood Pressure Mean 103 Blood Pressure Mean [BP] Blood Pressure Source Monitor Blood Pressure Source [BP] Blood Pressure Position Semi-Fowlers Blood Pressure Position [BP] Blood Pressure Location Right Arm Blood Pressure Location [BP] Pulse Ox 93 93 93 Oxygen Delivery Method Room Air Room Air Room Air Oxygen Flow Rate (L/min) 06/02/23 06:50 06/02/23 06:50 06/02/23 09:30 Temperature 98.0 F Temperature Source Oral Pulse Rate 70 73 Respiratory Rate 16 16 Respiratory Effort Respiratory Depth Respiratory Pattern Normal Blood Pressure 150/68 H Blood Pressure [BP] Blood Pressure Mean 95 Blood Pressure Mean [BP] Blood Pressure Source Monitor Blood Pressure Source [BP] Blood Pressure Position Semi-Fowlers Blood Pressure Position [BP] Blood Pressure Location Right Arm Blood Pressure Location [BP] Pulse Ox 93 94 Oxygen Delivery Method Room Air Room Air Oxygen Flow Rate (L/min) Weight Weight: 79.8 kg Body Mass Index (BMI) 30.2 EEG Results Procedure Details EEG Procedure Details: MIKAEL SON is a 82 year old F with a past medical history of , who presents for evaluation of Electroencephalogram on DATE at TIME NIHSS NIHSS Nursing Documentation NIHSS Nursing Documentation: NIHSS: Ischemic Stroke/TIA Start: 06/01/23 21:52 Text: For PCU Patients: NIH and Neuro Check every 4 Status: Active hours and PRN Freq: [id number] Protocol: Activity Type Activity Date Activity User E-sign Co-sign Detail Recorded Client Recorded Date Recorded By Document 06/02/23 09:30 Desktop 06/02/23 09:53 06/02/23 09:30 NIH Stroke Scale [NIHSS] A score of 0 is "normal" or asymptomatic . Total possible score is 42. Inpatient: RN or Physician to activate a stroke alert for onset of new stroke symptoms or with NIHSS increase >/= 3 points. Following change in neurological status, NIHSS will be performed per physician order or more frequently PRN. -1a. Level of Consciousness Alert; keenly responsive -1b. LOC Questions Answers BOTH questions correctly. -1c. LOC Commands Performs both tasks correctly . -2. Best Gaze Normal -3. Visual No visual loss -4. Facial Palsy Normal symmetrical movements -5a. Left Arm No drift; arm holds 90 (or 45 ) degrees for full 10 seconds -5b. Right Arm No drift; arm holds 90 (or 45 ) degrees for full 10 seconds -6a. Left Leg No drift; leg holds 30-degree position for full 5 seconds -6b. Right Leg No drift; leg holds 30-degree position for full 5 seconds -7. Limb Ataxia Absent -8. Sensory Normal; no sensory loss -9. Best Language No aphasia; normal -10. Dysarthria Normal -11. Extinction and Inattention No abnormality -Total 0 Query Text:A score of 0 is "normal" or asymptomatic. Total possible score is 42 . ED: Notify Physician for NIHSS increase by > / = 3 points. Inpatient: RN or Physician to activate a stroke alert for NIHSS increase of > / = 3 points. Coma Scale [Assess] -Eye Opening Spontaneous -Motor Obeys Commands -Verbal Oriented [Total] -Coma Scale Total 15 Lab / Micro Data 06/02/23 05:50 06/02/23 05:50 Labs: Laboratory Results - last 24 hr 06/01/23 19:07: WBC 8.4, RBC 4.94, Hgb 14.3, Hct 45.0, MCV 91.1, MCH 28.9, MCHC 31.8 L, RDW Std Deviation 43.1, RDW Coeff of Daria 12.9, Plt Count 238, MPV 8.7, Immature Gran % (Auto) 2.100 H, Neut % (Auto) 39.5 L, Lymph % (Auto) 44.9 H, [place] % (Auto) 9.0, Eos % (Auto) 3.7, Baso % (Auto) 0.8, Absolute Neuts (auto) 3.3, Absolute Lymphs (auto) 3.79, Nucleated RBC % 0, PT 12.4, INR 0.9, APTT 35.7, Sodium 138, Potassium 3.6, Chloride 106, Carbon Dioxide 29.0, Anion Gap 3 L, BUN 13, Creatinine 0.82, Estim Creat Clear Calc 54.74, Est GFR (MDRD) Af Amer 86, Est GFR (MDRD) Non-Af 71, BUN/Creatinine Ratio 15.8, Glucose 162 H, Calcium 9.6, Magnesium 2.3, Troponin I High Sens 6 06/02/23 05:50: WBC 8.9, RBC 4.59, Hgb 13.7, Hct 42.2, MCV 91.9, MCH 29.8, MCHC 32.5, RDW Std Deviation 43.2, RDW Coeff of Daria 12.8, Plt Count 254, MPV 9.0, Immature Gran % (Auto) 0.300, Neut % (Auto) 73.7 H, Lymph % (Auto) 17.7 L, [place] % (Auto) 7.6, Eos % (Auto) 0.4, Baso % (Auto) 0.3, Absolute Neuts (auto) 6.6, Absolute Lymphs (auto) 1.58, Nucleated RBC % 0, Sodium 138, Potassium 4.0, Chloride 108 H, Carbon Dioxide 27.0, Anion Gap 3 L, BUN 12, Creatinine 0.75, Estim Creat Clear Calc 57.32, Est GFR (MDRD) Af Amer 95, Est GFR (MDRD) Non-Af 79, BUN/Creatinine Ratio 15.9, Glucose 102, Calcium 8.6, Total Bilirubin 0.90, AST 98 H, ALT 178 H, Alkaline Phosphatase 158 H, Total Protein 6.4, Albumin 3.2, Globulin 3.2, Albumin/Globulin Ratio 1.0, Triglycerides 169, Cholesterol 225 H, LDL Cholesterol 149 H, VLDL Cholesterol 34, HDL Cholesterol 42, TSH 1.20 Imaging Radiology Impression Brain CT 06/01/23 19:08 IMPRESSION: Mild periventricular white matter ischemic changes. No mass or acute bleed.. If concern for acute infarct MRI recommended Electronically Signed: Morales Topete MD at 19:28 EST , ADDENDUM: 06/01/23 1936 IMPRESSION: Mild periventricular white matter ischemic changes. No mass or acute bleed.. If concern for acute infarct MRI recommended N.B. : The above Results were Read Back by Morales Topete MD to Andrés Acuña MD, and understanding confirmed on 06/01/2023 19:29:49 (ET). Electronically Signed: Morales Topete MD at 19:28 EST , ADDENDUM: 06/01/23 1945 IMPRESSION: Mild periventricular white matter ischemic changes. No mass or acute bleed.. If concern for acute infarct MRI recommended N.B. : The above Results were Read Back by Morales Topete MD to Andrés Acuña MD, and understanding confirmed on 06/01/2023 19:38:11 (ET). Electronically Signed: Morales Topete MD at 19:28 EST , Head/Neck CTA 06/01/23 19:15 IMPRESSION: Mild atherosclerotic changes of the head and neck. No evidence for hemodynamically significant stenosis or major vessel occlusion Electronically Signed: Morales Topete MD at 19:45 EST , ADDENDUM: 06/01/231951 IMPRESSION: Mild atherosclerotic changes of the head and neck. No evidence for hemodynamically significant stenosis or major vessel occlusion N.B. : The above Results were Read Back by Morales Topete MD to Andrés Acuña MD, and understanding confirmed on 06/01/2023 19:46:01 (ET). Electronically Signed: Morales Topete MD at 19:45 EST , Chest X-Ray 06/01/23 20:18 IMPRESSION: No acute cardiopulmonary pathology Electronically Signed: Morales Topete MD at 20:48 EST Reading Location ID and State: [facility] / [place] Tel [phone], Service support , Brain MRI 06/02/23 10:00 IMPRESSION: 1. No MRI evidence of acute or subacute ischemic infarct old ischemic infarct. 2. Chronic white matter ischemic changes in both cerebral hemispheres and one in the right central pontine tegmentum. Electronically Signed: Andrés Chiang MD at 11:43 EST , Active Medications Active Medications Active Medications: Current Medications Generic Name Dose Route Start Last Admin Trade Name Freq PRN Reason Stop Dose Admin Acetaminophen 650 mg 06/01/23 21:52 Acetaminophen 325 Mg Tablet PO Q4H PRN PRN Fever, pain 1-10 Al Hydroxide/Mg Hydroxide 30 ml 06/01/23 21:52 Mag Hydrox/Al Hydrox/Simeth 30 Ml Udc PO Q6H PRN PRN Gastric Burning Albuterol Sulfate 2.5 mg 06/01/23 21:52 Albuterol 2.5 Mg/3 Ml Vial.Neb. INHALATION Q2H PRN PRN Dyspnea, wheezing Aspirin 81 mg 06/02/23 08:00 06/02/23 10:45 Aspirin 81 Mg Tab.Chew PO 81 mg BREAKFAST PHIL Administration Atorvastatin Calcium 20 mg 06/01/23 22:00 06/01/23 23:04 Atorvastatin Calcium 20 Mg Tablet PO 20 mg QHS PHIL Administration Budesonide 0.5 mg 06/01/23 21:52 06/02/23 06:50 Budesonide Respules 0.5 Mg/2 Ml Ampul.Neb. INHALATION 0.5 mg BID.RT PHIL Administration Donepezil HCl 10 mg 06/02/23 10:00 06/02/23 10:45 Donepezil Hcl 10 Mg Tablet PO 10 mg DAILY PHIL Administration Doxepin HCl 10 mg 06/01/23 21:52 Doxepin Hydrochloride 10 Mg Capsule PO DAILY PRN PRN anxiety Enoxaparin Sodium 40 mg 06/02/23 10:00 06/02/23 10:47 Enoxaparin 40 Mg/0.4 Ml Syringe SC 40 mg DAILY PHIL Administration Guaifenesin 20 ml 06/01/23 21:52 Guaifenesin 10 Ml Udc (200mg/10ml) PO Q4H PRN PRN COUGH Hydralazine HCl 5 mg 06/01/23 21:52 Hydralazine 20 Mg/Ml Vial IV Q30M PRN to maintain BP goals Labetalol HCl 10 - 20 mg 06/01/23 21:52 Labetalol (Prefilled) 20 Mg/4 Ml IV Q10M PRN PRN to Maintain BP Goals Levothyroxine Sodium 50 mcg 06/02/23 06:00 06/02/23 05:49 Levothyroxine 50 Mcg Tablet PO 50 mcg DAILY@0600 PHIL Administration Melatonin 3 mg 06/01/23 21:52 Melatonin 3 Mg Tablet PO QHS PRN PRN INSOMNIA Ondansetron HCl 4 mg 06/01/23 21:52 Ondansetron 4 Mg/2 Ml Vial IV Q8H PRN PRN NAUSEA/VOMITING Paroxetine HCl 10 mg 06/02/23 10:00 06/02/23 10:45 Paroxetine 10 Mg Tablet PO 10 mg DAILY PHIL Administration Prochlorperazine Edisylate 5 mg 06/01/23 21:52 Prochlorperazine 10 Mg/2 Ml Vial IV Q4H PRN PRN Breakthrough Nausea/Vomiting Quetiapine Fumarate 25 mg 02/22/24 10:00 06/02/23 10:45 Quetiapine 25 Mg Tablet PO 25 mg DAILY PHIL Administration Protocol Senna/Docusate Sodium 2 tablet 06/01/23 21:52 Senna/Docusate Sodium 1 Tablet PO BID PRN PRN Constipation Sodium Chloride 10 - 40 ml 06/01/23 22:36 06/02/23 10:46 0.9% Saline Lock 10 Ml Syringe IV 10 ml UD PRN Administration SALINE FLUSH 06/02/23 1345 <Electronically signed by Samson Terry MD> Cosigner Signature (if applicable): CC: Mari Martin; Yuko Gerber; Mk Davidson; Leana Mendoza MD; Marisol Fagan MD; Samson Terry MD; Jillian Willoughby MD; Dr. Za Alves MD; Dr. Nithin Connell MD; Dr. Adrienne Cruz MD; Dr. Haven Watson MD; Dr. Lars Purcell MD; Dr. Belkis Murphy MD; Dr. Tenzin Albarado MD; Dr. Freedom Coker MD; Dr. Nathaniel George DO; Dr. Amanda Vergara MD; Dr. Ysabel Vasquez MD; Dr. Yulissa Brewer MD; Dr. Parker Bolton MD; Dr. Rosibel Drake MD; Kris Nobles MD; Eder Bowden MD; Jaclyn Chin DO; Shakir Hernandez MD; Ava Cooper DO; Brennon Dennis MD~ Signed [facility] Work Phone: Evaluation note Note Date & Type Note Facility Evaluation note No assessment information availa ble [facility] Work Phone: Evaluation note Note Date & Type Note Facility Evaluation note Diagnosis Onset Date Dizziness acute Facial droop acute TIA (transient ischemic attack) acute [facility] Work Phone: Evaluation note Note Date & Type Note Facility Evaluation note Diagnosis Onset Date Dizziness acute Facial droop resolved TIA (transient ischemic attack) resolved [facility] Work Phone: History and physical note Note Date & Type Note Facility History and physical note Note Date/Time June 01, 2023 8:58pm [facility] Medical Records Department [address] [place] [address] H&P Exam - Hospitalist 06/01/232055 MR#: [id number] Acct: [id number] Name: MIKAEL SON Rep #:[id number] : 1940 82 From: Haven Watson MD PCP: Dr. Adrienne Cruz MD Status:REG ER Location: ED HPI - General General Date of Admission: 06/01/23 Date of Service: 06/01/23 Chief Complaint: L facial droop, dysarthria, ? syncopal event. HPI Narrative The patient is an 82 y/o F residing in assisted living at [facility] w/ PMHx: Hypothyroidism, Anxiety and Depression, Obesity, Hx VTE (DVT), Hx L Breast Ductal CA, Hx bladder neoplasm of unclear specific significance, HLD, Dementia unclear type with unclear behavioral disturbance history who presents to the [facility] on 06/01/23 with history of onset slurred speech and dizziness which began after she sat down for dinner with symptoms starting at approximately 6:30 PM with upon EMS arrival noted left facial droop however on route her symptoms drastically improved. Stroke alert was initiated and per stroke team patient family had reported increased confusion above her baseline dementia with onset suddenly at dinner of dizziness with left-sided facial droop and altered speech with diaphoresis and initially noted become very stiff before she then slumped over to the right. In the ED initial NIH stroke scale noted to be 1 for mild tomoderate dysarthria. No mention from facility regarding loss of bowel or bladder. Workup in the ED included T98, heart rate 60, BP 132/71 with most recent repeat 145/73, respiratory rate 18, initially 90% on room air and eventually placed on 2 L nasal cannula ranging 95 to 99%, CBC with WBC 8.4, hemoglobin 14.3, platelets 238 with increased immature granulocytes, unremarkable coags, BMP with glucose 162 otherwise not marked appearing, troponin 6, CT of the brain with mild periventricular right matter ischemic changes with no acute intracranial findings, CTA head and neck with mild atherosclerotic changes of the head and neck with no evidence for hemodynamically significant stenosis or major vessel occlusion, EKG SR with no acute evidence of ischemia. Telestroke recommendation for further evaluation ofsyncope versus seizure versus TIA with continuation of baby aspirin, recommendation for urinalysis, orthostatics to be obtained, stroke lab workup, MRI of the brain as well as echocardiogram. [facility] Medical History Bladder neoplasm of uncertain malignant potential Dementia DVT (deep venous thrombosis) High cholesterol History of basal cell cancer History of ductal carcinoma in situ of breast Hypercholesteremia Non-smoker Post-menopausal Skin cancer Wears dentures Wears glasses Home Medications rosuvastatin 10 mg tablet 10 mg PO QHS cholesterol lowering 02/17/17 [History Last Taken 02/16/17] donepezil 10 mg tablet (Aricept) 10 mg PO DAILY 01/15/21 [History Last Taken Unknown] paroxetine HCl 10 mg tablet (Paxil) 10 mg PO DAILY 01/15/21 [History Last Taken Unknown] quetiapine 25 mg tablet (Seroquel) 25 mg PO DAILY 01/15/21 [History Last Taken Unknown] cephalexin 500 mg capsule 500 mg PO Q12 post-operative 3 days #6 CAPSULES 05/12/21 [Rx Last Taken Unknown] oxycodone-acetaminophen 5 mg-325 mg tablet (Percocet) 1 tab PO Q8H PRN pain 3 days #10 tabs 05/12/21 [Rx Last Taken Unknown] doxepin 10 mg capsule 10 mg PO DAILY PRN anxiety 06/01/23 [History Last Taken Unknown] levothyroxine 50 mcg tablet 50 mcg PO DAILY 06/01/23 [History Last Taken Unknown] Allergy/AdvReac Type Severity Reaction Status Date / Time valacyclovir [From Valtrex] Allergy Intermediate Rash Verified 05/12/21 09:17 Family History Mother Breast cancer Sister Colon cancer Breast cancer Father Parkinsons Heart disease Myocardial infarction Other Bladder cancer Brain cancer Surgical History History of bladder surgery History of lumpectomy of left breast Hx of vein stripping Social History household members: none current occupational status: retired Smoking Status: Never smoker alcohol intake: never substance use type: does not use what type of physical activity do you participate in: walking frequency: 3-4 times per week seatbelt use: always do you feel safe at home: Yes additional social history: ROS Review of Systems ROS Unobtainable: due to mental condition Vital Signs Vital Signs Vital Signs: 06/01/23 19:16 06/01/23 19:24 06/01/23 19:24 Temperature 98 F 95.6 F L Temperature Source Temporal Temporal Pulse Rate 60 Respiratory Rate 18 Blood Pressure 132/71 H Blood Pressure Mean 91 Pulse Ox 90 95 Oxygen Delivery Method Room Air Nasal Cannula Oxygen Flow Rate (L/min) 2 06/01/23 19:42 06/01/23 19:54 06/01/23 20:24 Temperature Temperature Source Pulse Rate 60 58 L Respiratory Rate 18 17 Blood Pressure 145/73 H 124/83 H Blood Pressure Mean 97 96 Pulse Ox 99 99 99 Oxygen Delivery Method Nasal Cannula Nasal Cannula Nasal Cannula Oxygen Flow Rate (L/min) 2 2 2 Weight Weight: 176 lb Body Mass Index (BMI) 31.1 Physical Exam Narrative Physical Examination: General: Awake, alert, oriented to self but does have underlying significant dementia, can have some discussion but chronically has disorientation per discussion with family but is been worse over the last month, seated upright in the bed, no acute distress. Skin: Normal color, normal turgor, no icterus, no cyanosis except occasional staged ecchymoses, abrasion. HEENT: AT/NC, EOMI, PERRLA, mildly dry MM, no carotid bruits or JVD noted. Lungs: Mildly diminished, greater bases, appropriate effort, no rales, ronchi orwheezing. Heart: Regular rate and rhythm; no gallop, rub audible. Abdomen: Soft, obese, NTTP, ND, mildly hyperactive BS, no obvious evidence of HSM. Extremities: No cyanosis, clubbing, or edema. Neurological: Patient awake, alert, oriented x as noted, cognitive function decreased baseline secondary to underlying dementia but has been worse over the last month per discussion with family present; pupils equally reactive to light and accommodation, cranial nerves grossly normal but does have mild flattening of the nasolabial fold on the left side however with smiling this corrects, moving all 4 extremities, finger-nose and [id number] appropriate, equivocal Babinski, sensation intact, strength moderately to severely globally decreased secondary to underlying comorbidities but no focal deficit. Psychiatric: Affect appears flat, fatigued, no acute evidence of depressive or anxiety feelings. Results Lab / Micro Data 06/01/23 19:07 06/01/23 19:07 Labs: Laboratory Results - last 24 hr 06/01/23 19:07: WBC 8.4, RBC 4.94, Hgb 14.3, Hct 45.0, MCV 91.1, MCH 28.9, MCHC 31.8 L, RDW Std Deviation 43.1, RDW Coeff of Daria 12.9, Plt Count 238, MPV 8.7, Immature Gran % (Auto) 2.100 H, Neut % (Auto) 39.5 L, Lymph % (Auto) 44.9 H, [place] % (Auto) 9.0, Eos % (Auto) 3.7, Baso % (Auto) 0.8, Absolute Neuts (auto) 3.3, Absolute Lymphs (auto) 3.79, Nucleated RBC % 0, PT 12.4, INR 0.9, APTT 35.7, Sodium 138, Potassium 3.6, Chloride 106, Carbon Dioxide 29.0, Anion Gap 3 L, BUN 13, Creatinine 0.82, Estim Creat Clear Calc 54.74, Est GFR (MDRD) Af Amer86, Est GFR (MDRD) Non-Af 71, BUN/Creatinine Ratio 15.8, Glucose 162 H, Calcium 9.6, Troponin I High Sens 6 Imaging Radiology Impression Brain CT 06/01/23 19:08 IMPRESSION: Mild periventricular white matter ischemic changes. No mass or acute bleed.. If concern for acute infarct MRI recommended Electronically Signed: Morales Topete MD at 19:28 EST Reading Location ID and State: [facility] / [place] Tel [phone], Service support , ADDENDUM: 06/01/231935 IMPRESSION: Mild periventricular white matter ischemic changes. No mass or acute bleed.. If concern for acute infarct MRI recommended N.B. : The above Results were Read Back by Morales Topete MD to Andrés Acuña MD, and understanding confirmed on 06/01/2023 19:29:49 (ET). Electronically Signed: Morales Topete MD at 19:28 EST , ADDENDUM: 06/01/231944 IMPRESSION: Mild periventricular white matter ischemic changes. No mass or acute bleed.. If concern for acute infarct MRI recommended N.B. : The above Results were Read Back by Morales Topete MD to Andrés Acuña MD, and understanding confirmed on 06/01/2023 19:38:11 (ET). Electronically Signed: Morales Topete MD at 19:28 EST , Head/Neck CTA 06/01/23 19:15 IMPRESSION: Mild atherosclerotic changes of the head and neck. No evidence for hemodynamically significant stenosis or major vessel occlusion Electronically Signed: Morales Topete MD at 19:45 EST , ADDENDUM: 06/01/231951 IMPRESSION: Mild atherosclerotic changes of the head and neck. No evidence for hemodynamically significant stenosis or major vessel occlusion N.B. : The above Results were Read Back by Morales Topete MD to Andrés Acuña MD, and understanding confirmed on 06/01/2023 19:46:01 (ET). Electronically Signed: Morales Topete MD at 19:45 EST , Chest X-Ray 06/01/23 20:18 IMPRESSION: No acute cardiopulmonary pathology Electronically Signed: Morales Topete MD at 20:48 EST , Assessment & Plan Assessment/Plan (1) TIA (transient ischemic attack): PLAN: Plan The patient is an 82 y/o F residing in assisted living at [facility] w/ PMHx: Hypothyroidism, Anxiety and Depression, Obesity, Hx VTE (DVT), Hx L Breast Ductal CA, Hx bladder neoplasm of unclear specific significance, HLD, Dementia unclear type with unclear behavioral disturbance history who presents to the [facility] on 06/01/23 with history of onset slurred speech and dizziness which began after she sat down for dinner with symptoms starting at approximately 6:30 PM with upon EMS arrival noted left facial droop however on route her symptoms drastically improved. #1. Questionable syncope versus TIA/CVA versus possible seizure activity with transient dysarthria, facial droop, increased confusion however some concern forstiffening with syncopal event following: Will admit to PCU, will obtain MRI Brain, ECHO, will obtain EEG to be cautious given neurology concerns, PT/OT/Speech/Nutrition evaluation per protocol. Will allow permissive HTN, maintain on asa, statin w/ AM FLP, fall precautions. Mag, TSH, FLP, HgbA1c requested. Maintain on fall and aspiration precautions. Will continue ED initiated Neurology consultation. #2. Acute Hypoxia, mild, unclear etiology: CXR without acute findings, family notes intermittent wheezing through the past year, will add ATC budesonide, PRN albuterol and obtain PA and Lateral in the AM to be cautious. #3. Elevated BP without hypertensive diagnosis: Will continue permissive hypertension per stroke protocol with as needed agents per stroke protocol. #4. Hyperglycemia: Admission glucose 162, A1c pending per stroke protocol as noted. If consistent with diabetes will transition to ADA diet with Accu-Cheks with insulin sliding scale. Nutrition consulted also per stroke protocol. #5. Dementia unclear type with unclear behavioral disturbance history, potentially progressing: Complicates presentation, continue patient home donepezil home regimen, maintain on fall and aspiration precautions, therapies as well as case management consulted as noted. #6. Anxiety and depression: We will continue patient home doxepin, low-dose Seroquel, paroxetine. #7. 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 Patient does have chronic LUE paresthesias and some weakness followingher surgery and interventions of note. #8. History bladder neoplasm of unclear significance: Noted in chart history, uncertain exact significance of the bladder neoplasm, s/p 05/12/21 cystoscopy withbladder biopsy and fulguration, encourage continued outpatient follow-up with urology as previously arranged. #9. Hypothyroidism: Continue home levothyroxine regimen, TSH pending. #10. Hyperlipidemia: Continue home statin regimen. AM FLP. #11. Obesity: Weight loss and lifestyle changes encouraged. #12. History VTE: Chart reported history of previous DVT, will continue chemoprophylaxis as noted. #13. DVT prophylaxis: Lovenox. #14. CODE status: Patient DEREK is her daughter who is present and living will is currently in place. Discussed CODE status at length including difference between FULL code, DNR-CCA and DNR-CC status. Following discussions about the differences in these status, requested DNR-CCA, no intubation status. Advanced Care Planning Face to Face Time: 16 minutes. Charges/Coding Visit Charges Inpatient E&M: 71806 Init Hosp L3 Procedures Hospitalists Procedures: 70695 Advncd Care Plan 30 Min 06/01/232106 <Electronically signed by Haven Watson MD> Cosigner Signature (if applicable): CC: Dr. Adrienne Cruz MD; Dr. Haven Watson MD~ Signed [facility] Work Phone: Summary Purpose Family History No Family History Records Found Relationship Condition Age at Onset Recorded Date/T rubina Not Specified Malignant neoplasm of colon Unknown Malignant neoplasm of brain Unknown Malignant neoplasm of urinary bladder Unk nown Cardiac disease Unknown Myocardial infarction Unknown Malignant neoplasm of breast Unknown Parkinson's disease Unknown Relationship Condition Age at Onset Recorded Date/T rubina Not Specified Malignant neoplasm of brain Unknown Malignant neoplasm of urinary bladder Unk nown mother Malignant neoplasm of breast Unknown sister Malignant neoplasm of colon Unknown Malignant neoplasm of breast Unknown father Parkinson's disease Unknown Cardiac disease Unknown Myocardial infarction Unknown Advance Directives No Advanced Directives Records Found Advance Directive Response Recorded Date/ Time Living Will No May 07 11:52am Power of Visual Merchandising Assistant No May 07, 2021 11:52am Advance Directive Response Recorded Date/ Time Living Will No May 07 10:52am Power of Visual Merchandising Assistant No May 07, 2021 10:52am Advance Directive Response Recorded Date/ Time Name of Medical Power of Visual Merchandising Assistant michael taylor June 01, 2023 7:27pm Living Will No June 01 7:27pm Power of Visual Merchandising Assistant Yes June 01, 2023 7:27pm Advance Directive Response Recorded Date/ Time Name of Medical Power of Visual Merchandising Assistant Moon tierney June 01, 2023 10:31pm Living Will No June 01 10:31pm Power of Visual Merchandising Assistant Yes June 01, 2023 10:31pm Advance Directive Response Recorded Date/ Time Name of Medical Power of Visual Merchandising Assistant Moon tierney June 01, 2023 11:31pm Living Will No June 01 11:31pm Power of Visual Merchandising Assistant Yes June 01, 2023 11:31pm Chief Complaint and Reason for Visit Chief Complaint [facility] LABWORK [facility] LABWORK Chief Complaint [facility] LABWORK [facility]WORK INCREASED LFT TIA/CVA, ? SYNCOPE, ? SEIZURE Reason for Visit Dizziness Facial droop TIA (transient ischemic attack) Chief Complaint [facility] LABWORK [facility] LABWORK INCREASED LFT TIA/CVA, ? SYNCOPE, ? SEIZURE TIA/CVA, ? SYNCOPE, ? SEIZURE LABWORK LABWORK Reason for Visit Dizziness Facial droop TIA (transient ischemic attack) Additional Source Comments INFORMATION SOURCE (unrecogn ized section and content) DATE CREATED AUTHOR 10/04/2017 [facility] DATE CREATED AUTHOR AUTHOR'S ORGANIZ ATION 09/11/2020 [facility] ([place]) DATE CREATED AUTHOR AUTHOR'S ORGANIZ ATION 12/21/2024 [facility] Goals (unrecognized section and content) Goals may be documented in a n alternate sectionGoals may be documented in an alternate sectionGoals may be documented in an alternate sectionGoals may be documented in an alternate sectionGoals may be documented in an alternate sectionGoals may be documented in an alternate sectionGoals may be documented in an alternate section Care Teams (unrecognized sec tion and content) Team Status: Active Member Role Status Dates Dr. Adrienne Cruz MD Family Provider Active Dr. Adrienne Cruz MD Primary Care Provider Active Team Status: Inactive Member Role Status Dates Dr. Adrienne Cruz MD Primary Care Provider, Attendin g Provider Active Team Status: Active Member Role Status Dates Dr. Adrienne Cruz MD Primary Care Provider Active Adrienne DOSS MD Attending Provider Active Team Status: Inactive Member Role Status Dates Dr. Adrienne Cruz MD Primary Care Provider Active Adrienne DOSS MD Attending Provider Active Team Status: Inactive Member Role Status Dates Dr. Adrienne Cruz MD Primary Care Prov ider, Attending Provider, Referring Provider Active Team Status: Active Member Role Status Dates Dr. Adrienne Cruz MD Primary Care Provider Active Andrés Acuña MD Emergency Provider Active Dr. Haven Watson MD Admit Provider, Attending Prov ider Active Team Status: Active Member Role Status Dates Dr. Adrienne Cruz MD Primary Care Provider Active Dr. John Pool MD Attending Provider Active Team Status: Inactive Member Role Status Dates Dr. Adrienne Cruz MD Primary Care Provider Active Andrés Acuña MD Emergency Provider Active Dr. Haven Watson MD Admit Provider, Other Provider Active Dr. Nithin Connell MD Other Provider Active Dr. Leana Mendoza MD Other Provider Active Jaclyn Chin MD Other Provider Active Dr. Yuko Gerber MD Other Provider Active Samson Terry MD Other Provider Active Marisol Fagan MD Other Provider Active Dr. Mari Martin DO Other Provider Active Dr. Lars Purcell MD Other Provider Active Dr. Belkis Murphy MD Other Provider Active Dr. Freedom Coker MD Other Provider Active Dr. Tenzin Albarado MD Other Provider Active Dr. Nathaniel George MD Other Provider Active Dr. Ysabel Vasquez MD Other Provider Active Dr. Amanda Vergara MD Other Provider Active Dr. Mk Beebe MD Other Provider Active Dr. Yulissa Brewer MD Other Provider Active Dr. Parker Bolton MD Other Provider Active Dr. Rosibel Drake MD Other Provider Active Brennon Dennis MD Other Provider Active Jillian Willoughby MD Other Provider Active Eder Bowden MS Other Provider Active Kris Nobles MD Other Provider Active HECTOR ALVES MD Other Provider Active Shakir Hernandez MD Other Provider Active Ava Cooper MD Other Provider Active Dr. Maxime Dale MD Attending Provider Active Team Status: Active Member Role Status Dates Dr. Adrienne Cruz MD Primary Care Provider Active Andrés Acuña MD Emergency Provider Active Dr. Haven Watson MD Admit Provider, Other Provider Active Dr. Nithin Connell MD Other Provider Active Dr. Leana Mendoza MD Other Provider Active Jaclyn Chin MD Other Provider Active Dr. Yuko Gerber MD Other Provider Active Samson Terry MD Other Provider Active Marisol Fagan MD Other Provider Active Dr. Mari Martin DO Other Provider Active Dr. Lars Purcell MD Other Provider Active Dr. Belkis Murphy MD Other Provider Active Dr. Freedom Coker MD Other Provider Active Dr. Tenzin Albarado MD Other Provider Active Dr. Nathaniel George MD Other Provider Active Dr. Ysabel Vasquez MD Other Provider Active Dr. Amanda Vergara MD Other Provider Active Dr. Mk Beebe MD Other Provider Active Dr. Yulissa Brewer MD Other Provider Active Dr. Parker Bolton MD Other Provider Active Dr. Rosibel Drake MD Other Provider Active Brennon Dennis MD Other Provider Active Jillian Willoughby MD Other Provider Active Eder Bowden , MS Other Provider Active Kris Nobles MD Other Provider Active HECTOR ALVES MD Other Provider Active Shakir Hernandez MD Other Provider Active Ava Cooper MD Other Provider Active Dr. Maxime Dale MD Attending Provider, Other Provi alvina Active FOR RECORDS PERTAINING TO PATIENTS WHO ARE [...] BE BASED ON THE PRIMARY CLINICAL RECORDS. [employer] [facility] provides no warranty or guarantee of the accuracy or completeness of information in this document.
[2025-01-28 13:07] LABS: AST(SGOT) 37 U/L (<=31); Alanine Aminotransfer ALT/SGPT 58 U/L (<=34); Albumin, Serum 4.1 g/dL (3.4-4.8); Alkaline Phosphatase 100 U/L (35-104); Anion Gap 13 (5-15); BUN 14 mg/dL (4-19); BUN/Creat Ratio 20.9 RATIO (10-20); Calcium,Total 9.3 mg/dL (7.6-11.0); Carbon Dioxide 24.9 mmol/L (21.0-32.0); Chloride 101 mmol/L (98-108); Cholesterol 207 mg/dL (<=200); Free T3 2.7 pg/mL (2.18-3.98); Globulin 2.6 g/dL (2.2-4.2); Glucose 148 mg/dL (70-99); Low Density Lipoprotein Calc. 140 mg/dL; Potassium 4.1 mmol/L (3.3-5.1); Triglycerides 137 mg/dL; Very Low Density Lipoprotein 27 mg/dL (5-40); cholesterol:hdl ratio screen 4.94
== END | disposition home or self-care (01) ==
LOC: MFPLAB 09:20
PROVIDERS: PCP Family Medicine; Visit Provider Family Medicine
DX: E03.9 Hypothyroidism, unspecified (principal); E78.5 Hyperlipidemia, unspecified
CPT/HCPCS: 36415; 80053; 80061; 84439; 84443; 84481